=== PATIENT | male | born 1940 | race Caucasian/White ===

== ENCOUNTER 2017-12-31 09:02 | Inpatient (IN) ==
--- NOTE | 2017-12-31 09:01 | Discharge Summary ---
<Abby Jacobs - Last Filed: 12/31/17 08:58> Orders not resulted at time of discharge: Pending orders 12/31/17 00:01 XR knee LT limited 1-2V [XR] Routine H/H [Hemoglobin and Hematocrit] [HEME] Routine Date of Encounter: 12/31/17 - Discharge Diagnosis (1) Status post total knee replacement, left Priority: Primary Status: Acute (2) Arthritis of knee, left Priority: Primary Status: Acute (3) History of aortic valve replacement Priority: Secondary Status: Chronic (4) HTN (hypertension) Priority: Secondary Status: Chronic Qualifiers: Hypertension type: essential hypertension Qualified Code(s): I10 - Essential (primary) hypertension (5) History of TIA (transient ischemic attack) Priority: Secondary Status: Chronic (6) BPH (benign prostatic hyperplasia) Priority: Secondary Status: Chronic Qualifiers: Lower urinary tract symptom presence: symptoms absent Qualified Code(s): N40.0 - Benign prostatic hyperplasia without lower urinary tract symptoms (7) Asthma Priority: Secondary Status: Chronic Qualifiers: Asthma severity: unspecified severity Asthma persistence: unspecified Asthma complication type: unspecified Qualified Code(s): J45.909 - Unspecified asthma, uncomplicated (8) GERD (gastroesophageal reflux disease) Priority: Secondary Status: Chronic Qualifiers: Esophagitis presence: esophagitis presence not specified Qualified Code(s) : K21.9 - Gastro-esophageal reflux disease without esophagitis (9) Peripheral neuropathy Priority: Secondary Status: Chronic Qualifiers: Peripheral neuropathy type: polyneuropathy, unspecified Qualified Code(s): G62.9 - Polyneuropathy, unspecified - Hospital Course Hospital course: Mr. Paniagua is a 77 year old male - Time Spent with Patient Total time spent providing and/or coordinating discharge services: - Discharge Medications Home Medications: Albuterol Sulfate [Ventolin Hfa] 2 puff IH Q4H PRN 06/14/17 [History] Ascorbic Acid [Vitamin C] 1,000 mg PO DAILY 06/14/17 [History] Aspirin [Lo-Dose Aspirin EC] 81 mg PO DAILY 06/14/17 [History] Budesonide/Formoterol 160/4.5 [Symbicort 160/4.5] 2 puff IH BIDR 06/14/17 [ History] Calcium Carbonate [Calcium] 600 mg PO DAILY 06/14/17 [History] Cyanocobalamin (Vitamin B-12) [Vitamin B-12] 1,000 mcg SL DAILY 06/14/17 [ History] Finasteride [Proscar] 5 mg PO DAILY 06/14/17 [History] Garlic [Odor Free Garlic] 100 mg PO DAILY 06/14/17 [History] Irbesartan [Avapro] 300 mg PO DAILY 06/14/17 [History] Multivitamin [One Daily Multivitamin] 1 each PO DAILY 06/14/17 [History] Pantoprazole Sodium 40 mg PO DAILY 06/14/17 [History] Sertraline [Zoloft] 100 mg PO DAILY 06/14/17 [History] Tamsulosin [Flomax] 0.8 mg PO DAILY 06/14/17 [History] Aspirin Enteric Coated [Aspirin EC] 325 mg PO BID #20 tablet. 12/31/17 [Rx] OxyCODONE Immed Rel [Roxicodone 5 MG] 5 mg PO Q6HR PRN 7 Days #28 tablet [Rx] Allergies/Adverse Reactions: 3 Allergy/AdvReac Type Severity Reaction Status Date / Time No Known Allergies Allergy Verified 06/14/17 08:11 Primary care physician: Sb Mckinney MD - Patient Status Disposition: Transfer Inpatient Rehab Fac Condition: Good - Discharge Instructions Follow Up With: Sb Mckinney MD [Primary Care Provider] - <Alexandr Burnett - Last Filed: 01/04/18 06:51> Orders not resulted at time of discharge: Pending orders 12/31/17 00:01 XR knee LT limited 1-2V [XR] Routine H/H [Hemoglobin and Hematocrit] [HEME] Routine Date of Encounter: 01/04/18 Time of Encounter: 06:50 - Discharge Diagnosis (1) Urinary hesitancy Priority: Secondary Status: Chronic (2) Status post total knee replacement, left Priority: Primary Status: Acute (3) Arthritis of knee, left Priority: Primary Status: Chronic (4) History of aortic valve replacement Priority: Secondary Status: Chronic (5) HTN (hypertension) Priority: Secondary Status: Chronic Qualifiers: Hypertension type: essential hypertension Qualified Code(s): I10 - Essential (primary) hypertension (6) History of TIA (transient ischemic attack) Priority: Secondary Status: Chronic (7) BPH (benign prostatic hyperplasia) Priority: Secondary Status: Chronic Qualifiers: Lower urinary tract symptom presence: symptoms absent Qualified Code(s): N40.0 - Benign prostatic hyperplasia without lower urinary tract symptoms (8) Asthma Priority: Secondary Status: Chronic Qualifiers: Asthma severity: unspecified severity Asthma persistence: unspecified Asthma complication type: unspecified Qualified Code(s): J45.909 - Unspecified asthma, uncomplicated (9) GERD (gastroesophageal reflux disease) Priority: Secondary Status: Chronic Qualifiers: Esophagitis presence: esophagitis presence not specified Qualified Code(s) : K21.9 - Gastro-esophageal reflux disease without esophagitis (10) Peripheral neuropathy Priority: Secondary Status: Chronic Qualifiers: Peripheral neuropathy type: polyneuropathy, unspecified Qualified Code(s): G62.9 - Polyneuropathy, unspecified - Hospital Course Hospital course: Mr. Paniagua is a 77 year old male Status post left total knee replacementThe patient had an uneventful postoperative course. They received antibiotics and physical therapy and were discharged in stable condition. There will follow-up in the office in 2 weeks. - Time Spent with Patient Total time spent providing and/or coordinating discharge services: Primary care physician: Sb Mckinney MD - Patient Status Functional capacity at discharge: uses cane/walker Overall status at discharge: patient is progressing back to baseline
[2017-12-31] MEDS ORDERED: CeFAZolin Syr 2,000MG/20 ML 2,000 MG/20 ML SYRINGE IVPB ONE (09:27)
[2017-12-31] MEDS ORDERED: Albuterol 2.5 MG/3 ML NEBULIZER IH ONE (09:27)
[2017-12-31] MEDS ORDERED: Ringers Solution, Lactated 1,000 ML IVC SCH ×2 (09:30→14:27)
[2017-12-31] MEDS ORDERED: Famotidine 20 MG/2 ML VIAL IVP ONE (10:00)
[2017-12-31] MEDS ORDERED: cloNIDine HCl 0.1 MG TABLET PO ONE (10:00)
--- NOTE | 2017-12-31 10:00 | History & Physical Report ---
Date of Encounter: 12/31/17 Time of Encounter: 10:00 24 Hour HP Update - Instructions Instructions: If the History and Physical is less than 30 days old and was completed prior to A.M. admission and or procedure and has NOT been updated on calendar day of procedure please complete this update prior to performing procedure. - Update Patient reports changes in Medical Condition: No Changes in examination, assessment, or condition: No Changes in Medication: No Preop tests/diagnostics Reviewed: Yes Surgery Remains Indicated: Yes Consent for Planned Operative Procedure(s) Verified: Yes - Pre-Operative Checklist Preoperative Checklist Indicated: No Prophylactic Antibiotic Ordered: Yes Is VTE Prophylaxis Indicated?: Yes
[2017-12-31] MEDS ORDERED: Acetaminophen IV 1,000 MG/100 ML INFUS..BTL IVPB ONE (10:01)
[2017-12-31] MEDS ORDERED: Pregabalin 75 MG CAPSULE PO ONE (10:01)
--- NOTE | 2017-12-31 10:05 | Anesthesia Evaluation PreOp ---
Date of Encounter: 12/31/17 Time of Encounter: 10:03 - Past History Planned Operation: L-robotic Total Knee Cardiac History: HTN (maintained on Irbesartan), Cardiac Surgery (Hx Aortic Valve replacement 12/2006) Pulmonary History: Asthma, COPD (maintained on ProAir, Symbicort, Ventolin,) INTERACTIVE MEDIA SPECIALIST History: Other (Anxiety/Depression maintained on Sertraline. EtOH related neuropathy) Other Medical History: GERD (maintained on Pantroprazole), Other (BPH maintained on Tamsuosin, Finasteride) Anesthesia History: No Prior Anesthetic Complications, Past Anesthesia (Aortic Valve replacement, [place], R-shoulder 2002. ,Bronch, Hammer toe correction), Problems (Difficulty/Slow awakening) Alcohol Use: none Drug use: none Medications and Allergies Albuterol Sulfate [Ventolin Hfa] 2 puff IH Q4H PRN 06/14/17 [History] Ascorbic Acid [Vitamin C] 1,000 mg PO DAILY 06/14/17 [History] Aspirin [Lo-Dose Aspirin EC] 81 mg PO DAILY 06/14/17 [History] Budesonide/Formoterol 160/4.5 [Symbicort 160/4.5] 2 puff IH BIDR 06/14/17 [ History] Calcium Carbonate [Calcium] 600 mg PO DAILY 06/14/17 [History] Cyanocobalamin (Vitamin B-12) [Vitamin B-12] 1,000 mcg SL DAILY 06/14/17 [ History] Finasteride [Proscar] 5 mg PO DAILY 06/14/17 [History] Garlic [Odor Free Garlic] 100 mg PO DAILY 06/14/17 [History] Irbesartan [Avapro] 300 mg PO DAILY 06/14/17 [History] Multivitamin [One Daily Multivitamin] 1 each PO DAILY 06/14/17 [History] Pantoprazole Sodium 40 mg PO DAILY 06/14/17 [History] Sertraline [Zoloft] 100 mg PO DAILY 06/14/17 [History] Tamsulosin [Flomax] 0.8 mg PO DAILY 06/14/17 [History] Aspirin Enteric Coated [Aspirin EC] 325 mg PO BID #20 tablet. 12/31/17 [Rx] OxyCODONE Immed Rel [Roxicodone 5 MG] 5 mg PO Q6HR PRN 7 Days #28 tablet [Rx] 3 Allergy/AdvReac Type Severity Reaction Status Date / Time No Known Allergies Allergy Verified 06/14/17 08:11 - Meds/Allergy Pre-op Review Medications Reviewed: Yes Allergies Reviewed: Yes Beta Blockers on Current Med List: No Anesthesia Results - Labs Laboratory Tests 12/24/17 12/24/17 12/24/17 07:26 07:26 07:26 WBC 7.8 Hgb 14.7 Hct 44.1 Plt Count 189 PT 11.5 INR 1.1 APTT 28.5 Sodium 138 Potassium 3.8 Chloride 106 Carbon Dioxide 27 BUN 10 Creatinine 1.08 Est GFR (Non-Af Amer) > 60 - Imaging EKG: image reviewed (EKG dated 12/14/2017 - 84bpm SR w/ PVCs, LAFB, Inf Infarct age undetermined, Possible Ant. Infarct age undertermined) Additional studies: ECHO 12/17/2017 - EV/EV echocardiogram Impressions: LVEF 60%. Mild left ventricular diastolic dysfunction. Normal right ventricular structure and function. Mild to moderate mitral regurgitation. Biologic aortic valve not well visualized. Normal function by Doppler. Mild tricuspid regurgitation. Borderline presence of pulmonary hypertension. IVC is not well visualized. Left Ventricular Wall Motion: Rest Echo Findings All wall segments showed normal motion. Findings: Study Quality * Technically adequate exam. ECG Findings * Sinus rhythm with BBB. Left Ventricle * LVEF 60%. * Normal LV chamber size, wall thickness and function. * Mild left ventricular diastolic dysfunction. Right Ventricle * Normal right ventricular structure and function. Left Atrium * Normal left atrial size. Right Atrium * Normal right atrial size. Mitral Valve * Normal mitral valve structure. * No mitral stenosis. * Mild to moderate mitral regurgitation. Aortic Valve * No aortic regurgitation. * Biologic aortic valve not well visualized. * No aortic stenosis. Tricuspid Valve * Normal tricuspid valve structure. * Mild tricuspid regurgitation. Pulmonic Valve * Pulmonic valve is not well visualized. * No pulmonic stenosis. * No pulmonic regurgitation. Pulmonary Artery * Pulmonary artery not well visualized. Aorta * Normally sized aortic root. Pericardium * There is no pericardial effusion present. Interatrial Septum * Interatrial septum not well evaluated. IVC * The IVC is not well evaluated. Anesthesia Exam O2 Sat Height 1.83 m Height 1.83 m Height 1.83 m Weight 89.358 kg Weight 89.358 kg Weight 89.358 kg O2 Sat by Pulse Oximetry 94 O2 Sat by Pulse Oximetry 94 Vital Signs Temp Pulse Resp BP Pulse Ox 98.0 F 77 18 167/93 94 12/31/17 09:31 12/31/17 09:31 12/31/17 09:31 12/31/17 09:31 12/31/17 09:31 - HEENT Pupil (Motor): Pupils equal, EOMI Mallampati: II Teeth: Edentulous Oral Opening: Greater than 3 - INTERACTIVE MEDIA SPECIALIST LOC: Oriented INTERACTIVE MEDIA SPECIALIST Motor: Normal RUE, Normal LUE, Normal RLE, Normal LLE, Normal Face INTERACTIVE MEDIA SPECIALIST Sensory: Normal: RUE, LUE, RLE, LLE, Face - Cardiac Rhythm: Regular Murmur: Systolic - Pulmonary Breath Sounds: bilateral Clear Respiratory Effort: Symmetrical Anesthesia Assess/Plan ASA Score: 3 (HTN, Cholesterol, COPD, GERD, BPH) Modified [place] Scale for Level of Consciousness: Cooperative, oriented, and tranquil Anesthetic Plan: General, Regional (SAB, Femoral PNB,) Monitoring Plan: Standard Monitors Recovery Plan: PACU Anes Supervising Prov Stmt: Pt seen/evaluated, R&B discussed, questions answered and consent obtained. Radha Camargo MD
[2017-12-31] MEDS ORDERED: Metoclopramide 10 MG/2 ML VIAL ONE (10:30)
[2017-12-31] MEDS ORDERED: *HR* FentaNYL (PF) 100 MCG/2 ML VIAL ONE (11:03)
[2017-12-31] MEDS ORDERED: *HR* Midazolam HCl 2 MG/2 ML VIAL ONE (11:03)
[2017-12-31] MEDS ORDERED: *HR* Propofol 200 MG/20 ML VIAL IVP ONE (11:04)
[2017-12-31] MEDS ORDERED: Propofol 500 MG/50 ML INFUS..BTL ONE (11:09)
[2017-12-31] MEDS ORDERED: *HR* PHENYLEPHRINE 1,000 MCG/10 ML SYRINGE IVP ONE (11:09)
[2017-12-31] MEDS ORDERED: Morphine Sulfate/PF 5mg/10mL Vial ONE (11:38)
[2017-12-31] MEDS ORDERED: Bupivacaine/Clonidine Syringe 1 EACH SYRINGE ONE (11:54)
[2017-12-31] MEDS ORDERED: ROPIVACAINE HCL/PF 0.5% 30 ML VIAL ONE (11:57)
[2017-12-31] MEDS ORDERED: Ethanol\\Acetic Acid\\Na Ace\\Ben 1,000 ML IRRIG.SOLN IR ONE (12:00)
--- NOTE | 2017-12-31 12:41 | Anesthesia Procedures ---
Date of Encounter: 12/31/17 Time of Encounter: 11:45 Procedures: Anesthesia - Epidural/Spinal Patient ID/Chart reviewed: Yes Patient examined: Yes Consent Obtained: Yes Supplemental Oxygen: Nasal Cannula Supplemental Oxygen Rate (L/min): 2 Sedation: Versed (mg): 0 (0.5mg administered) Sedation: Fentanyl (mcg): 25 Site Prep: Aseptic Technique, Povidone-Iodine 1% Patient position: upright Local Anesthetic: Lidocaine 1% Amount of Local Anesthetic used: 3 Interspace Used: L2-L3 CSF: Yes Paresthesia: No Spinal Needle Gauge: 25 (Pencar) Spinal Dose: 1ml x 0.75% Spinal Marcaine + 200mcg Duramorph Procedure: L-Total Knee Replacement - Nerve Block Procedure Date: 12/31/17 Time: 11:50 Allergies/Adv Reactions: NKDA Surgical Procedure: Robotic L-TKR Checklist: Correct Patient Identifier Correct side: Left Blood Thinner: No Monitor Applied: BP, Pulse Oximetry Supplemental Oxygen via Nasal Cannula (L/min): 2 Sedation: Versed (mg): 0 (0.5) Sedation: Fentanyl (mcg): 25 Indication: Primary Anesthesia Pre-op Neuro Deficits: Yes (Pain, decreased ROM) Block Type: Femoral (Adductor Canal) Sterile Technique: Yes Ultrasound used: Yes Anatomy identified: Yes Visual spread of Local: Yes Neuro Stimulation: No Blood on Needle Aspiration: No Smooth Injection of Local: Yes Pain with Injection of Local: No Prep: Chlorhexadine Needle: 22 x 50 mm Stimuplex Local: Ropivacaine (30ml 0.5% Ropivacaine w/ Decadron 8mg) Volume (cc): 30 Number of Attempts: 1 (w/ assistance/direction by Dr. Mejias) Complications: None/effective block Vitals: 3 Vital Signs Time 1150 1154 BP 152/86 135/79 Pulse 75 70 Resp 18 18 O2 Sat 96% 96% Anes Supervising Prov Stmt: Pt tolerated procedure well and without any immediate complication. Radha Camargo MD
--- NOTE | 2017-12-31 13:11 | Orthopedic Operative Note ---
Date of procedure: 12/31/17 Pre-op diagnosis: Left knee arthritis Post-op diagnosis: same Procedure: Procedure: Left robotic-assisted Total knee replacement Estimated blood loss: 200 cc Hardware: Metal and polyethylene replacement. [place] Femur: 6 Tibia: 7 TS insert: 11 Patella: 39 Exam Under anesthesia: 8 degree flexion contracture 6 degree varus as calculated by the robot full flexion and no instability Procedural Notes: Patient noted to have grade 4 changes undersurface of patella femoral joint medial compartment Operative procedure: The patient was brought to the operating room and placed on the operating room table. After general anesthesia was administered the operative knee was examined. Findings were noted in the exam under anesthesia. The operative extremity was prepped and draped in sterile surgical fashion. The patient received IV antibiotics prior to skin incision. A standard midline incision was made centered over the patella. The incision was made through the skin and subcutaneous tissue. A medial parapatellar tendon approach was performed. Care was taken to preserve tissue along the medial aspect of the patella. And to protect the patella tendon. The deep MCL was released off the medial tibia. The infra patella fat pad was excised. The patella was everted and cut was made at the level of the insertion of the quadriceps and patella tendon. The patella was sized to a 39 the guide was seated and the lug holes are drilled. Knee was brought into flexion. Patient noted to have grade 4 arthritic changes medial compartment patellofemoral joint. Steinmann pins were placed in the tibia and the femur for the tibial and femoral arrays respectively. Checkpoints were also placed in the tibia and the femur for calculation purposes. The knee including the femur and the tibial registered. Osteophytes , ACL and PCL were excised at this point. Extension and flexion were assessed with a valgus stress components were adjusted on the computer to balance the knee. Femoral cuts were made first with robotic assistance, these included the anterior cut posterior cuts chamfer cuts. Tibial cut was then performed with robotic assistance as well. Bone fragments were removed, as well as the medial and lateral meniscus. The size 6 femoral guide was seated box cut was made lug holes are drilled. The size 7 tibial tray was seated and prepared with the fin cutter. Trial reduction with the 11 TS Peace revealed extension of 0 degree and 1 degree varus full flexion. No varus valgus instability. Trial reduction revealed excellent patella tracking. All trial components were removed all bony surfaces were irrigated. The Tibia was seated followed by the femur, The Peace size 11 was seated and secured patella. Patient had similar findings for motion and stability. The knee was closed by the PA. The knee was then irrigated out with 2 L of pulse irrigation. The extensor mechanism was closed with #2 FiberWire suture and #2 PDS suture. The subcutaneous tissue was then irrigated and closed deep with #1 PDS suture superficially with 0 PDS suture and skin was closed with zip tie The patient was then placed in a sterile dressing and a postoperative brace extubated and transferred to recovery room in stable condition. Anesthesia: spinal Surgeon: Alexandr Burnett Was there an maintenance assistant present: Yes Revenue Integrity Analyst: Esmer Agustin Estimated blood loss (cc): 200 Condition: stable Disposition: PACU
[2017-12-31 14:27] LABS: Hematocrit 40.3 % (37.5-50.1); Hemoglobin 13.4 g/dL (12.9-16.9)
[2017-12-31] MEDS ORDERED: MOM Conc 10 ML UD.LIQ PO PRN (14:27)
[2017-12-31] MEDS ORDERED: Naloxone 0.4 MG/ML INJ IVP PRN (14:27)
[2017-12-31] MEDS ORDERED: Temazepam 15 MG CAPSULE PO PRN (14:27)
[2017-12-31] MEDS ORDERED: Sennosides 8.6 MG TABLET PO PRN (14:27)
[2017-12-31] MEDS: CeFAZolin Premix DUPLEX 2,000 MG/50 ML BAG IVPB SCH (17:03)
[2017-12-31] MEDS ORDERED: *HR* Enoxaparin 30 MG/0.3 ML SYRINGE SQ SCH (18:00)
[2017-12-31] MEDS: Budesonide/Formoterol 160/4.5 MDI IH SCH (20:19)
[2018-01-01] MEDS: CeFAZolin Premix DUPLEX 2,000 MG/50 ML BAG IVPB SCH (00:57)
[2018-01-01] MEDS: Ondansetron 4 MG/2 ML VIAL IVP PRN (02:43)
--- NOTE | 2018-01-01 06:31 | Orthopedics Progress Note ---
Date of Encounter: 01/01/18 Time of Encounter: 06:31 - Assessment and Plan (1) Urinary hesitancy Current Visit: No Status: Chronic (2) Status post total knee replacement, left Current Visit: No Status: Acute (3) Arthritis of knee, left Current Visit: No Status: Chronic (4) History of aortic valve replacement Current Visit: No Status: Chronic (5) HTN (hypertension) Current Visit: No Status: Chronic Qualifiers: Hypertension type: essential hypertension Qualified Code(s): I10 - Essential (primary) hypertension (6) History of TIA (transient ischemic attack) Current Visit: No Status: Chronic (7) BPH (benign prostatic hyperplasia) Current Visit: No Status: Chronic Qualifiers: Lower urinary tract symptom presence: symptoms absent Qualified Code(s): N40.0 - Benign prostatic hyperplasia without lower urinary tract symptoms (8) Asthma Current Visit: No Status: Chronic Qualifiers: Asthma severity: unspecified severity Asthma persistence: unspecified Asthma complication type: unspecified Qualified Code(s): J45.909 - Unspecified asthma, uncomplicated (9) GERD (gastroesophageal reflux disease) Current Visit: No Status: Chronic Qualifiers: Esophagitis presence: esophagitis presence not specified Qualified Code(s) : K21.9 - Gastro-esophageal reflux disease without esophagitis (10) Peripheral neuropathy Current Visit: No Status: Chronic Qualifiers: Peripheral neuropathy type: polyneuropathy, unspecified Qualified Code(s): G62.9 - Polyneuropathy, unspecified Subjective Interval history: Patient was seen this morning doing well without complaints. Afebrile vital signs stable. Operative extremity: Neurovascularly intact Dressing clean dry and intact Calves nontender Assessment and plan: Continue with postoperative care Patient with a complicated medical comorbidities history of aortic valve replacement history of TIA patient is unsafe to go home will need to an ECF will require conversion to inpatient. Objective Vital signs: Vital Signs Temp Pulse Resp BP Pulse Ox 01/01/18 02:38 97.9 F 63 14 143/82 94 01/01/18 00:27 98.1 F 58 14 160/83 96 12/31/17 20:19 14 97 12/31/17 18:35 97.6 F 50 12 139/80 98 12/31/17 15:15 97.7 F 54 14 145/85 98 12/31/17 14:45 97.4 F L 52 14 142/85 96 12/31/17 14:27 97.5 F L 49 16 168/80 97 12/31/17 14:14 97.6 F 51 12 160/85 97 12/31/17 14:04 51 12 159/82 98 12/31/17 13:54 51 12 153/86 97 12/31/17 13:44 97.4 F L 55 16 136/79 96 12/31/17 12:11 60 16 128/76 97 12/31/17 12:08 62 16 124/74 96 12/31/17 12:02 60 16 122/73 96 12/31/17 11:59 61 16 129/75 97 12/31/17 11:56 65 16 136/85 97 12/31/17 11:53 66 16 140/80 97 12/31/17 11:50 70 16 135/79 97 12/31/17 11:47 75 16 152/86 96 12/31/17 11:37 81 18 113/79 97 12/31/17 11:27 65 18 145/90 96 12/31/17 09:57 18 167/93 94 12/31/17 09:31 98.0 F 77 18 167/93 94 Intake and Output 12/31/17 12/31/17 01/01/18 15:59 23:59 07:59 Intake Total 600 / 600 730 / 730 500 / 500 Output Total 200 / 200 0 / 0 1125 / 1125 Balance 400 / 400 730 / 730 -625 / -625 Intake: IV Fluids 120 / 120 50 / 50 50 / 50 Ofirmev 1,000 mg/100 ml 1,000 100 / 100 mg In 100 ml @ 400 mls/hr IVPB ONCE ONE Rx#:[id number] Ancef Premix DUPLEX 2,000 mg In 50 / 50 50 / 50 50 ml @ 100 mls/hr IVPB Q8H ANA Rx#:[id number] Ancef Syringe 2,000 MG/20 ML 2, 20 / 20 000 mg In 20 ml @ 200 mls/hr IVPB PREOP ONE Rx#:[id number] Oral 480 / 480 680 / 680 450 / 450 Output: Urine 0 / 0 0 / 0 Estimated Blood Loss 200 / 200 Straight Cath 1125 / 1125 Other: Meal Dinner Percent of Meal Consumed 50% Weight 89.358 kg - Labs CBC & BMP: 12/31/17 13:57 - VTE Documentation of Mechanical Device: Venous foot pump, device Consult Discharge Plan - Plan Referrals: Sb Mckinney MD [Primary Care Provider] - Prescriptions: Aspirin Enteric Coated [Aspirin EC] 325 mg PO BID #20 tablet. OxySHAYDONDmitri Immed Rel [Roxicodone 5 MG] 5 mg PO Q6HR PRN 7 Days #28 tablet PRN Reason: Severe Pain
[2018-01-01 07:39] LABS: Hematocrit 37.9 % (37.5-50.1); Hemoglobin 12.7 g/dL (12.9-16.9)
[2018-01-01] MEDS: Budesonide/Formoterol 160/4.5 MDI IH SCH ×2 (07:47→21:37)
[2018-01-01 07:53] LABS: BUN/Creatinine Ratio 16 (6-26); Blood Urea Nitrogen 16 mg/dL (8-23); Calcium 8.4 mg/dL (8.6-10.3); Carbon Dioxide 26 mEq/L (23-29); Chloride 104 mEq/L (98-107); Glucose 120 mg/dL (70-105); Osmolality,Calculated 276 (280-300); Potassium 4.3 mEq/L (3.5-5.1); Sodium 132 mEq/L (136-145); eGFR For African Americans > 60 (> 60); eGFR For Non-African Americans > 60 (> 60)
[2018-01-01] MEDS: traMADol 50 MG TABLET PO PRN ×2 (08:12→14:51)
[2018-01-01] MEDS: Ascorbic Acid 500 MG TABLET PO SCH (08:12)
[2018-01-01] MEDS: Aspirin Enteric Coated 81 MG Tablet PO SCH ×2 (08:12→20:04)
[2018-01-01] MEDS: Cyanocobalamin (B-12) 1,000 MCG TABLET PO SCH (08:12)
[2018-01-01] MEDS: Multivit/Ca/Min/Fe/FA 1 TAB TABLET PO SCH (08:12)
[2018-01-01] MEDS: Garlic [Odor Free Garlic] 100 MG PO SCH (08:13)
[2018-01-01] MEDS: Finasteride 5 MG TABLET PO SCH (08:13)
[2018-01-01] MEDS ORDERED: Aspirin Enteric Coated 81 MG Tablet PO SCH (09:00)
[2018-01-01] MEDS: *HR* OxyCODONE/APAP 5/325 TABLET PO PRN ×2 (11:31→16:27)
[2018-01-01] MEDS: *HR* OxyCODONE Immed Rel 5 MG TABLET PO PRN (20:04)
[2018-01-02] MEDS: *HR* OxyCODONE Immed Rel 5 MG TABLET PO PRN ×5 (00:15→20:06)
--- NOTE | 2018-01-02 05:54 | Orthopedics Progress Note ---
Date of Encounter: 01/02/18 Time of Encounter: 05:54 - Assessment and Plan (1) Urinary hesitancy Current Visit: No Status: Chronic (2) Status post total knee replacement, left Current Visit: No Status: Acute (3) Arthritis of knee, left Current Visit: No Status: Chronic (4) History of aortic valve replacement Current Visit: No Status: Chronic (5) HTN (hypertension) Current Visit: No Status: Chronic Qualifiers: Hypertension type: essential hypertension Qualified Code(s): I10 - Essential (primary) hypertension (6) History of TIA (transient ischemic attack) Current Visit: No Status: Chronic (7) BPH (benign prostatic hyperplasia) Current Visit: No Status: Chronic Qualifiers: Lower urinary tract symptom presence: symptoms absent Qualified Code(s): N40.0 - Benign prostatic hyperplasia without lower urinary tract symptoms (8) Asthma Current Visit: No Status: Chronic Qualifiers: Asthma severity: unspecified severity Asthma persistence: unspecified Asthma complication type: unspecified Qualified Code(s): J45.909 - Unspecified asthma, uncomplicated (9) GERD (gastroesophageal reflux disease) Current Visit: No Status: Chronic Qualifiers: Esophagitis presence: esophagitis presence not specified Qualified Code(s) : K21.9 - Gastro-esophageal reflux disease without esophagitis (10) Peripheral neuropathy Current Visit: No Status: Chronic Qualifiers: Peripheral neuropathy type: polyneuropathy, unspecified Qualified Code(s): G62.9 - Polyneuropathy, unspecified Subjective Interval history: Patient was seen this morning doing well without complaints. Afebrile vital signs stable. Operative extremity: Neurovascularly intact Dressing clean dry and intact Calves nontender Assessment and plan: Continue with postoperative care Hematocrit 37 Objective Vital signs: Vital Signs Temp Pulse Resp BP Pulse Ox 01/02/18 03:23 98.4 F 73 14 162/76 94 01/01/18 23:23 97.7 F 68 14 143/66 93 01/01/18 21:37 15 94 01/01/18 19:59 98.0 F 63 14 132/73 94 01/01/18 10:50 97.4 F L 56 16 137/62 95 01/01/18 08:35 97.9 F 50 16 165/76 96 01/01/18 07:49 14 94 Intake and Output 01/01/18 01/01/18 01/02/18 15:59 23:59 07:59 Intake Total 240 / 240 550 / 550 200 / 200 Output Total 700 / 700 750 / 750 0 / 0 Balance -460 / -460 -200 / -200 200 / 200 Intake: Oral 240 / 240 550 / 550 200 / 200 Output: Urine 0 / 0 0 / 0 Straight Cath 700 / 700 750 / 750 Other: Meal Breakfast Percent of Meal Consumed 90% - Labs CBC & BMP: 01/01/18 07:08 01/01/18 07:08 Labs: Abnormal lab results Hgb 12.7 g/dL (12.9-16.9) L 01/01/18 07:08 Sodium 132 mEq/L (136-145) L 01/01/18 07:08 Glucose 120 mg/dL (70-105) H 01/01/18 07:08 Calculated Osmolality 276 (280-300) L 01/01/18 07:08 Calcium 8.4 mg/dL (8.6-10.3) L 01/01/18 07:08 - VTE Documentation of Mechanical Device: Venous foot pump, device Consult Discharge Plan - Plan Referrals: Sb Mckinney MD [Primary Care Provider] -
[2018-01-02 08:05] LABS: Hemoglobin 11.2 g/dL (12.9-16.9)
[2018-01-02 08:21] LABS: BUN/Creatinine Ratio 18 (6-26); Blood Urea Nitrogen 20 mg/dL (8-23); Calcium 8.1 mg/dL (8.6-10.3); Carbon Dioxide 28 mEq/L (23-29); Chloride 99 mEq/L (98-107); Glucose 106 mg/dL (70-105); Osmolality,Calculated 277 (280-300); Sodium 132 mEq/L (136-145); eGFR For African Americans > 60 (> 60); eGFR For Non-African Americans > 60 (> 60)
[2018-01-02] MEDS: Ascorbic Acid 500 MG TABLET PO SCH (08:32)
[2018-01-02] MEDS: Finasteride 5 MG TABLET PO SCH (08:33)
[2018-01-02] MEDS: Cyanocobalamin (B-12) 1,000 MCG TABLET PO SCH (08:33)
[2018-01-02] MEDS: Aspirin Enteric Coated 81 MG Tablet PO SCH ×2 (08:33→20:07)
[2018-01-02] MEDS: Multivit/Ca/Min/Fe/FA 1 TAB TABLET PO SCH (08:33)
[2018-01-02] MEDS: *HR* OxyCODONE/APAP 5/325 TABLET PO PRN (08:33)
[2018-01-02] MEDS: Ondansetron 4 MG/2 ML VIAL IVP PRN (08:34)
[2018-01-02] MEDS: Garlic [Odor Free Garlic] 100 MG PO SCH (08:34)
--- NOTE | 2018-01-02 09:03 | Physician Discharge Referral ---
ExtendedCare Referral Info Transfer To: [facility] Provider in Charge: Provider in Charge after Transfer: PCP Institutional Level of Care: Skilled - Diagnosis (1) Status post total knee replacement, left Priority: Primary Status: Acute (2) Arthritis of knee, left Priority: Primary Status: Chronic (3) History of aortic valve replacement Priority: Secondary Status: Chronic (4) HTN (hypertension) Priority: Secondary Status: Chronic (5) History of TIA (transient ischemic attack) Priority: Secondary Status: Chronic (6) BPH (benign prostatic hyperplasia) Priority: Secondary Status: Chronic (7) Asthma Priority: Secondary Status: Chronic (8) GERD (gastroesophageal reflux disease) Priority: Secondary Status: Chronic (9) Peripheral neuropathy Priority: Secondary Status: Chronic Expected Duration of Placement: < 30 days Prognosis: Good - Transfer Medications Home Medications: Albuterol Sulfate [Ventolin Hfa] 2 puff IH Q4H PRN 06/14/17 [History] Ascorbic Acid [Vitamin C] 1,000 mg PO DAILY 06/14/17 [History] Aspirin [Lo-Dose Aspirin EC] 81 mg PO DAILY 06/14/17 [History] Budesonide/Formoterol 160/4.5 [Symbicort 160/4.5] 2 puff IH BIDR 06/14/17 [ History] Calcium Carbonate [Calcium] 600 mg PO DAILY 06/14/17 [History] Cyanocobalamin (Vitamin B-12) [Vitamin B-12] 1,000 mcg SL DAILY 06/14/17 [ History] Finasteride [Proscar] 5 mg PO DAILY 06/14/17 [History] Garlic [Odor Free Garlic] 100 mg PO DAILY 06/14/17 [History] Irbesartan [Avapro] 300 mg PO DAILY 06/14/17 [History] Multivitamin [One Daily Multivitamin] 1 each PO DAILY 06/14/17 [History] Pantoprazole Sodium 40 mg PO DAILY 06/14/17 [History] Sertraline [Zoloft] 100 mg PO DAILY 06/14/17 [History] Tamsulosin [Flomax] 0.8 mg PO DAILY 06/14/17 [History] Aspirin Enteric Coated [Aspirin EC] 325 mg PO BID #20 tablet. 12/31/17 [Rx] OxyCODONE Immed Rel [Roxicodone 5 MG] 5 mg PO Q6HR PRN 7 Days #28 tablet [Rx] Allergies/Adverse Reactions: 3 Allergy/AdvReac Type Severity Reaction Status Date / Time No Known Allergies Allergy Verified 06/14/17 08:11 - Respiratory Orders None Smoking Cessation: Smoking cessation has been advised. For more information, call the [place] Tobacco Quit Line at 3-965-XLDC-NOW. - Ancillary Orders May use pressure relief devices daily prn - Mobility Orders Chair, Ambulate - Rehabiliation Orders Rehab Potential: Good Rehab Orders: ROM Exercises, Evaluation for Physical Therapy, Evaluation for Occupational Therapy - Treatments Skin tear care topically daily PRN per policy List/Other: Total Knee replacement Precautions x 6 weeks Apply cold therapy wrap 3-6x/day for 20 minutes at a time. Encourage ambulation throughout the day and incentive spirometer 10x/hour. Elevate affected extremity above heart as tolerated. Brace: Wear knee immobilizer at night x 2 weeks. Opsite placed. Keep dressing intact until first follow up appointment. If > 50% saturated, notify office, remove dressing and place appropriate dressing back in place. Leave Zipline intact. Opsite dressing is water resistant, not water- proof. OK to shower, but do not get dressing wet. CERTIFICATION: I certify that the transfer of the above named patient to an Extended Care Facility is necessary for the continuing treatment of the diagnosis listed. The above information is true and accurate reflection of patient's current condition. Confidential - Redisclosure prohibited without a patient's written consent.
[2018-01-02] MEDS: Budesonide/Formoterol 160/4.5 MDI IH SCH ×2 (11:22→21:45)
[2018-01-02] MEDS: Ketorolac 15 MG/ML VIAL IVP PRN (17:13)
[2018-01-03] MEDS: *HR* OxyCODONE Immed Rel 5 MG TABLET PO PRN ×5 (00:01→22:20)
[2018-01-03] MEDS: Budesonide/Formoterol 160/4.5 MDI IH SCH ×2 (08:07→20:46)
[2018-01-03] MEDS: Cyanocobalamin (B-12) 1,000 MCG TABLET PO SCH (08:11)
[2018-01-03] MEDS: Ketorolac 15 MG/ML VIAL IVP PRN (08:12)
[2018-01-03] MEDS: Multivit/Ca/Min/Fe/FA 1 TAB TABLET PO SCH (08:13)
[2018-01-03] MEDS: Ascorbic Acid 500 MG TABLET PO SCH (08:13)
[2018-01-03] MEDS: Finasteride 5 MG TABLET PO SCH (08:13)
[2018-01-03] MEDS: Aspirin Enteric Coated 81 MG Tablet PO SCH ×2 (08:13→19:43)
[2018-01-03] MEDS: Garlic [Odor Free Garlic] 100 MG PO SCH (08:14)
--- NOTE | 2018-01-03 08:36 | Orthopedics Progress Note ---
Date of Encounter: 01/03/18 Time of Encounter: 08:36 - Assessment and Plan (1) Urinary hesitancy Current Visit: No Status: Chronic (2) Status post total knee replacement, left Current Visit: No Status: Acute (3) Arthritis of knee, left Current Visit: No Status: Chronic (4) History of aortic valve replacement Current Visit: No Status: Chronic (5) HTN (hypertension) Current Visit: No Status: Chronic Qualifiers: Hypertension type: essential hypertension Qualified Code(s): I10 - Essential (primary) hypertension (6) History of TIA (transient ischemic attack) Current Visit: No Status: Chronic (7) BPH (benign prostatic hyperplasia) Current Visit: No Status: Chronic Qualifiers: Lower urinary tract symptom presence: symptoms absent Qualified Code(s): N40.0 - Benign prostatic hyperplasia without lower urinary tract symptoms (8) Asthma Current Visit: No Status: Chronic Qualifiers: Asthma severity: unspecified severity Asthma persistence: unspecified Asthma complication type: unspecified Qualified Code(s): J45.909 - Unspecified asthma, uncomplicated (9) GERD (gastroesophageal reflux disease) Current Visit: No Status: Chronic Qualifiers: Esophagitis presence: esophagitis presence not specified Qualified Code(s) : K21.9 - Gastro-esophageal reflux disease without esophagitis (10) Peripheral neuropathy Current Visit: No Status: Chronic Qualifiers: Peripheral neuropathy type: polyneuropathy, unspecified Qualified Code(s): G62.9 - Polyneuropathy, unspecified Subjective Interval history: Patient was seen this morning doing well without complaints. Afebrile vital signs stable. Operative extremity: Neurovascularly intact Dressing clean dry and intact Calves nontender Assessment and plan: Continue with postoperative care Hematocrit 33 Objective Vital signs: Vital Signs Temp Pulse Resp BP Pulse Ox 01/03/18 08:07 16 108/67 95 01/03/18 07:00 98.3 F 89 16 108/67 96 01/03/18 03:06 98.1 F 94 14 103/66 95 01/03/18 00:06 98.5 F 80 14 135/74 94 01/02/18 21:48 16 95 01/02/18 20:16 98.4 F 88 16 109/64 94 01/02/18 15:00 98.3 F 84 16 151/76 95 01/02/18 11:24 18 93 01/02/18 11:00 98.5 F 76 18 146/83 95 01/02/18 08:44 95 Intake and Output 01/02/18 01/03/18 01/03/18 23:59 07:59 15:59 Intake Total 450 / 450 100 / 100 Output Total 475 / 475 200 / 200 Balance -25 / -25 -100 / -100 Intake: Oral 450 / 450 100 / 100 Output: Catheter 475 / 475 200 / 200 - Labs CBC & BMP: 01/02/18 07:31 01/02/18 07:31 Labs: Abnormal lab results Hgb 11.2 g/dL (12.9-16.9) L D 01/02/18 07:31 Hct 33.0 % (37.5-50.1) L 01/02/18 07:31 Sodium 132 mEq/L (136-145) L 01/02/18 07:31 Glucose 106 mg/dL (70-105) H 01/02/18 07:31 Calculated Osmolality 277 (280-300) L 01/02/18 07:31 Calcium 8.1 mg/dL (8.6-10.3) L 01/02/18 07:31 - VTE Documentation of Mechanical Device: Venous foot pump, device Consult Discharge Plan - Plan Referrals: Sb Mckinney MD [Primary Care Provider] -
[2018-01-03] MEDS ORDERED: 0.9 % Sodium Chloride 1,000 ML IVC ONE (13:50)
--- NOTE | 2018-01-03 16:38 | Event Note ---
Date of Encounter: 01/03/18 Time of Encounter: 16:37 Patient doing well; continues to have difficulty with getting out of bed. Catheter placed on 01/02 due to retention and history of BPH. Will pull catheter tomorrow AM, before discharge and monitor for retention. Pain improved
[2018-01-03] MEDS: *HR* OxyCODONE/APAP 5/325 TABLET PO PRN (19:43)
--- NOTE | 2018-01-04 06:51 | Orthopedics Progress Note ---
Date of Encounter: 01/04/18 Time of Encounter: 06:51 - Assessment and Plan (1) Urinary hesitancy Current Visit: No Status: Chronic (2) Status post total knee replacement, left Current Visit: No Status: Acute (3) Arthritis of knee, left Current Visit: No Status: Chronic (4) History of aortic valve replacement Current Visit: No Status: Chronic (5) HTN (hypertension) Current Visit: No Status: Chronic Qualifiers: Hypertension type: essential hypertension Qualified Code(s): I10 - Essential (primary) hypertension (6) History of TIA (transient ischemic attack) Current Visit: No Status: Chronic (7) BPH (benign prostatic hyperplasia) Current Visit: No Status: Chronic Qualifiers: Lower urinary tract symptom presence: symptoms absent Qualified Code(s): N40.0 - Benign prostatic hyperplasia without lower urinary tract symptoms (8) Asthma Current Visit: No Status: Chronic Qualifiers: Asthma severity: unspecified severity Asthma persistence: unspecified Asthma complication type: unspecified Qualified Code(s): J45.909 - Unspecified asthma, uncomplicated (9) GERD (gastroesophageal reflux disease) Current Visit: No Status: Chronic Qualifiers: Esophagitis presence: esophagitis presence not specified Qualified Code(s) : K21.9 - Gastro-esophageal reflux disease without esophagitis (10) Peripheral neuropathy Current Visit: No Status: Chronic Qualifiers: Peripheral neuropathy type: polyneuropathy, unspecified Qualified Code(s): G62.9 - Polyneuropathy, unspecified Subjective Interval history: Patient was seen this morning doing well without complaints. Afebrile vital signs stable. Operative extremity: Neurovascularly intact Dressing clean dry and intact Calves nontender Assessment and plan: Continue with postoperative care Discharge today Objective Vital signs: Vital Signs Temp Pulse Resp BP Pulse Ox 01/04/18 04:30 98.5 F 79 14 149/75 93 01/03/18 23:58 98.9 F 75 14 120/70 94 01/03/18 21:27 99.2 F 79 14 126/72 94 01/03/18 16:21 99.3 F 81 18 113/70 93 01/03/18 15:50 95 01/03/18 11:09 98.3 F 75 18 107/63 95 01/03/18 08:07 16 108/67 95 01/03/18 07:00 98.3 F 89 16 108/67 96 Intake and Output 01/03/18 01/03/18 01/04/18 15:59 23:59 07:59 Intake Total 370 / 370 Output Total 400 / 400 1775 / 1775 1225 / 1225 Balance -400 / -400 -1405 / -1405 -1225 / -1225 Intake: Oral 370 / 370 Output: Catheter 400 / 400 1775 / 1775 1225 / 1225 Other: Meal Dinner Percent of Meal Consumed 50% - Labs CBC & BMP: 01/02/18 07:31 01/02/18 07:31 Labs: Abnormal lab results Hgb 11.2 g/dL (12.9-16.9) L D 01/02/18 07:31 Hct 33.0 % (37.5-50.1) L 01/02/18 07:31 Sodium 132 mEq/L (136-145) L 01/02/18 07:31 Glucose 106 mg/dL (70-105) H 01/02/18 07:31 Calculated Osmolality 277 (280-300) L 01/02/18 07:31 Calcium 8.1 mg/dL (8.6-10.3) L 01/02/18 07:31 - VTE Documentation of Mechanical Device: Venous foot pump, device Consult Discharge Plan - Plan Referrals: Sb Mckinney MD [Primary Care Provider] -
[2018-01-04 07:10] VITALS: BP 136/76
[2018-01-04] MEDS: Ascorbic Acid 500 MG TABLET PO SCH (07:35)
[2018-01-04] MEDS: Finasteride 5 MG TABLET PO SCH (07:35)
[2018-01-04] MEDS: Cyanocobalamin (B-12) 1,000 MCG TABLET PO SCH (07:36)
[2018-01-04] MEDS: Multivit/Ca/Min/Fe/FA 1 TAB TABLET PO SCH (07:36)
[2018-01-04] MEDS: *HR* OxyCODONE Immed Rel 5 MG TABLET PO PRN ×2 (07:36→11:33)
[2018-01-04] MEDS: Aspirin Enteric Coated 81 MG Tablet PO SCH (07:36)
[2018-01-04] MEDS: Garlic [Odor Free Garlic] 100 MG PO SCH (07:37)
[2018-01-04] MEDS: Budesonide/Formoterol 160/4.5 MDI IH SCH (08:15)
== END 2018-01-04 15:19 | disposition other institution (70) | DRG 470 ==
LOC: SAMDAY 09:02 → 3NENU 14:23
PROVIDERS: ADMIT Orthopaedic Surgery; ATTEND Orthopaedic Surgery

== ENCOUNTER 2018-01-18 10:47 | Inpatient (IN) ==
[2018-01-18 11:43] LABS: Basophils # 0.1 K/mcL (0.0-0.2); Basophils % 0.7 %; Eosinophils # 0.4 K/mcL (0.0-0.6); Eosinophils % 4.8 %; Hematocrit 35.4 % (37.5-50.1); Hemoglobin 11.8 g/dL (12.9-16.9); Immature Granulocytes % 1.1 % (0-4); Lymphocytes # 1.4 K/mcL (0.6-4.6); Lymphocytes % 15.3 %; Mean Corpuscular HGB Conc 33.3 g/dL (31.6-35.5); Mean Corpuscular Hemoglobin 29.3 pg (28.0-33.3); Mean Corpuscular Volume 87.8 fL (83.0-100.0); Mean Platelet Volume 9.3 fL (9.4-12.4); Monocytes # 0.7 K/mcL (0.0-1.3); Monocytes % 7.5 %; Neutrophils # 6.4 K/mcL (1.6-8.9); Platelet Count 526 K/mcL (140-400); Red Blood Count 4.03 M/mcL (4.19-5.50); Red Cell Distribution Width 13.2 % (11.5-14.5); Segmented Neutrophils % 70.6 %
[2018-01-18 11:58] LABS: Troponin I < 0.03 ng/mL (< 0.04)
[2018-01-18 12:15] LABS: BUN/Creatinine Ratio 14 (6-26); Blood Urea Nitrogen 18 mg/dL (8-23); Calcium 9.5 mg/dL (8.6-10.3); Carbon Dioxide 20 mEq/L (23-29); Chloride 101 mEq/L (98-107); Glucose 108 mg/dL (70-105); Osmolality,Calculated 278 (280-300); Sodium 133 mEq/L (136-145); eGFR For African Americans > 60 (> 60); eGFR For Non-African Americans 55 (> 60)
--- NOTE | 2018-01-18 12:19 | Emergency Department Note ---
Disposition Clinical Impression: Shortness of breath, Cough Pneumonia Qualifiers: Pneumonia type: due to unspecified organism Laterality: right Lung location: lower lobe of lung Qualified Code(s): J18.1 - Lobar pneumonia, unspecified organism Disposition: Admitted As Inpatient Condition: Good Referrals: Sb Mckinney MD [Primary Care Provider] - Forms: ED Satisfaction Letter Time of Disposition: 15:28 General Adult HPI - General Chief complaint: ED Shortness of Breath/Dyspnea Stated complaint: SOB, winded, post knee surgery Time Seen by Provider: 01/18/18 11:02 Source: patient, family Limitations: no limitations Nursing Notes Reviewed: Yes Vital Signs Reviewed: Yes - History of Present Illness HPI Narrative: Patient is a 77-year-old male that presents emergency department with increased shortness of breath. He states that this is been ongoing since he had surgery on December 31. However he states over the past 3-4 days and this progressively gotten worse. Patient had a knee replacement by Dr. Burnett. He states that he was seen at Dr. Burnett's office today who felt that he should come to the emergency department to be evaluated due to his breathing. Patient states that he has had a productive cough. He states that this feels like previous pneumonia. Patient denies any hemoptysis, chest pain, long car rides, cancer or previous blood clots. Pain Scale: 5 - Related Data Home Medications Medication Instructions Recorded Confirmed Albuterol Sulfate [Ventolin Hfa] 2 puff IH Q4H PRN 06/14/17 01/04/18 Ascorbic Acid [Vitamin C] 1,000 mg PO DAILY 06/14/17 01/04/18 Budesonide/Formoterol 160/4.5 2 puff IH BIDR 06/14/17 01/04/18 [Symbicort 160/4.5] Calcium Carbonate [Calcium] 600 mg PO DAILY 06/14/17 01/04/18 Cyanocobalamin (Vitamin B-12) 1,000 mcg SL DAILY 06/14/17 01/04/18 [Vitamin B-12] Finasteride [Proscar] 5 mg PO DAILY 06/14/17 01/04/18 Garlic [Odor Free Garlic] 100 mg PO DAILY 06/14/17 01/04/18 Irbesartan [Avapro] 300 mg PO DAILY 06/14/17 01/04/18 Multivitamin [One Daily 1 each PO DAILY 06/14/17 01/04/18 Multivitamin] Pantoprazole Sodium 40 mg PO DAILY 06/14/17 01/04/18 Sertraline [Zoloft] 100 mg PO DAILY 06/14/17 01/04/18 Tamsulosin [Flomax] 0.8 mg PO DAILY 06/14/17 01/04/18 Acetaminophen [Tylenol] 650 mg PO Q6HR 01/18/18 01/18/18 Aspirin Enteric Coated [Aspirin EC] 325 mg PO DAILY 01/18/18 01/18/18 Previous Rx's Medication Instructions Recorded Bethanechol [Urecholine] 12.5 mg PO TID tablet 01/15/18 Docusate [Colace] 100 mg PO BID capsule 01/15/18 Polyethylene Glycol 3350 [MiraLAX] 17 gm PO DAILY powd.pack 01/15/18 Saline Nasal Wright [[place] Nasal 2 spray NS QID bottle 01/15/18 Wright] Allergies Allergy/AdvReac Type Severity Reaction Status Date / Time No Known Allergies Allergy Verified 01/18/18 10:56 All systems ED: reviewed and negative except as stated. Cardiovascular: Denies: chest pain Respiratory: Reports: cough, dyspnea, sputum production Gastrointestinal: Denies: abdominal pain, nausea, vomiting Past Medical History - Past Medical History Medical history: Reports: asthma, COPD, GERD, hypertension Surgical history: Reports: cholecystectomy, heart valve replacement (Bovine aortic valve replacement 2006. Has never been on anticoagulants for this reason.) Psychiatric history: Reports: no psych history - Social History Smoking Status: Never smoker Smokeless Tobacco Status: No Alcohol use: Reports: none Drug use: Reports: none Physical Exam - General Limitations: no limitations General appearance: alert, anxious - Head Head exam: atraumatic, normocephalic - Eye Eye exam: Present: normal appearance, EOMI - Neck Neck exam: Present: normal inspection, full ROM, trachea midline - Respiratory Respiratory exam: Present: normal lung sounds bilaterally. Absent: respiratory distress, wheezes - Cardiovascular Cardiovascular exam: Present: regular rate, normal rhythm, normal heart sounds, +S1, +S2 - Abdominal Exam Abdominal exam: Present: soft, Non-Tender, normal bowel sounds - Extremities Exam Extremities exam: Absent: pedal edema, calf tenderness - Neurological Exam Neurological exam: Present: alert, oriented X3 - Psychiatric Psychiatric exam: Present: normal affect, normal mood - Skin Skin exam: Present: warm, dry, intact Course Vital Signs Temperature 97.6 F 01/18/18 10:52 Pulse Rate 71 01/18/18 10:52 Respiratory Rate 26 01/18/18 10:52 Blood Pressure 155/84 01/18/18 10:52 O2 Sat by Pulse Oximetry 100 01/18/18 10:52 Temperature 97.6 F 01/18/18 10:52 Pulse Rate 68 01/18/18 13:55 Respiratory Rate 16 01/18/18 13:55 Blood Pressure 172/93 01/18/18 13:55 O2 Sat by Pulse Oximetry 100 01/18/18 13:55 Oxygen Delivery Oxygen Delivery Nasal Cannula Medical Decision Making - MDM Narrative Medical decision making narrative: Due to the patient presenting with increased shortness of breath we will obtain a CBC, BMP, troponin, chest x-ray EKG. We will also obtain a d-dimer to evaluate for possible blood clot. The patient had an elevated d-dimer so we will order a CTA of the chest. The CTA was negative for pulmonary embolus however there was evidence of a possible atypical infection in the right lower lobe. We will treat this with antibiotic therapy and admit the patient to the hospital. Patient has been started on vancomycin, Zosyn and Levaquin due to the patient having been recently hospitalized and in a rehabilitation center. I called and spoke with the hospitalist and they have accepted the patient to their service. The patient be admitted to the hospital at this time. - Medical Records Medical records reviewed: Yes I reviewed the patient's medical records. - Lab Data Lab results reviewed: Yes I reviewed the patient's lab results. Result diagrams: 01/18/18 11:24 01/18/18 11:24 Lab Results 01/18/18 01/18/18 01/18/18 Range/Units 11:24 11:24 11:24 WBC 9.0 (4.3-11.1) K/mcL RBC 4.03 L (4.19-5.50) M/mcL Hgb 11.8 L D (12.9-16.9) g/dL Hct 35.4 L (37.5-50.1) % MCV 87.8 (83.0-100.0) fL MCH 29.3 (28.0-33.3) pg MCHC 33.3 (31.6-35.5) g/dL RDW 13.2 (11.5-14.5) % Plt Count 526 H D (140-400) K/mcL MPV 9.3 L (9.4-12.4) fL Immature Gran % 1.1 (0-4) % Seg Neutrophils % 70.6 % Lymphocytes % 15.3 % Monocytes % 7.5 % Eosinophils % 4.8 % Basophils % 0.7 % Neutrophils # 6.4 (1.6-8.9) K/mcL Lymphocytes # 1.4 (0.6-4.6) K/mcL Monocytes # 0.7 (0.0-1.3) K/mcL Eosinophils # 0.4 (0.0-0.6) K/mcL Basophils # 0.1 (0.0-0.2) K/mcL D-Dimer (0-500) ng/mLFEU Sodium 133 L (136-145) mEq/L Potassium 4.0 (3.5-5.1) mEq/L Chloride 101 (98-107) mEq/L Carbon Dioxide 20 L (23-29) mEq/L BUN 18 (8-23) mg/dL Creatinine 1.27 (0.70-1.30) mg/dL Est GFR ( Amer) > 60 (> 60) Est GFR (Non-Af Amer) 55 L (> 60) BUN/Creatinine Ratio 14 (6-26) Glucose 108 H (70-105) mg/dL Calculated Osmolality 278 L (280-300) Lactic Acid 1.6 (0.5-2.2) mmol/L Calcium 9.5 (8.6-10.3) mg/dL Troponin I < 0.03 (< 0.04) ng/mL B-Natriuretic Peptide (Less than 100) pg/mL 01/18/18 01/18/18 Range/Units 11:24 11:24 WBC (4.3-11.1) K/mcL RBC (4.19-5.50) M/mcL Hgb (12.9-16.9) g/dL Hct (37.5-50.1) % MCV (83.0-100.0) fL MCH (28.0-33.3) pg MCHC (31.6-35.5) g/dL RDW (11.5-14.5) % Plt Count (140-400) K/mcL MPV (9.4-12.4) fL Immature Gran % (0-4) % Seg Neutrophils % % Lymphocytes % % Monocytes % % Eosinophils % % Basophils % % Neutrophils # (1.6-8.9) K/mcL Lymphocytes # (0.6-4.6) K/mcL Monocytes # (0.0-1.3) K/mcL Eosinophils # (0.0-0.6) K/mcL Basophils # (0.0-0.2) K/mcL D-Dimer 5013 H (0-500) ng/mLFEU Sodium (136-145) mEq/L Potassium (3.5-5.1) mEq/L Chloride (98-107) mEq/L Carbon Dioxide (23-29) mEq/L BUN (8-23) mg/dL Creatinine (0.70-1.30) mg/dL Est GFR ( Amer) (> 60) Est GFR (Non-Af Amer) (> 60) BUN/Creatinine Ratio (6-26) Glucose (70-105) mg/dL Calculated Osmolality (280-300) Lactic Acid (0.5-2.2) mmol/L Calcium (8.6-10.3) mg/dL Troponin I (< 0.04) ng/mL B-Natriuretic Peptide 128 H (Less than 100) pg/mL - Radiology Data Radiology results reviewed: Yes I reviewed the patient's radiology results. Chest X-Ray 01/18/18 10:57 IMPRESSION: No acute process. D/ / Marco Maddox MD / Marco Maddox MD Interpreting Provider: Marco Maddox MD Chest CTA 01/18/18 13:02 IMPRESSION: 1. No evidence of pulmonary embolism 2. Ground-glass and small irregular opacities in the right lower lobe adjacent to a cluster of granulomas has the appearance of an atypical infectious process D/ / Ronald Barrientos MD / Ronald Barrientos MD Interpreting Provider: Ronald Barrientos MD - EKG Data EKG #1 EKG attestation: Yes I reviewed and interpreted this EKG. EKG results narrative: Patient's EKG shows a sinus rhythm at a rate of 63 bpm, OK interval of 178, QRS duration 165, QTC of 453. There is a right bundle branch present on EKG. This was compared to previous EKG on 12/26/13 which showed a sinus rhythm and rate of 87 bpm and the right bundle branch block was present at that time.
[2018-01-18] MEDS ORDERED: Isovue-370 500 ML INFUS..BTL IV ONE (13:02)
[2018-01-18] MEDS ORDERED: Levofloxacin 750 MG/150 ML 750 MG/150 ML BAG IVPB ONE (14:48)
[2018-01-18] MEDS ORDERED: Vancomycin (wt based) 1,000 MG VIAL IVPB ONE (14:48)
[2018-01-18] MEDS ORDERED: Piperacillin/Tazobactam 3.375 GM in 0.9 % Sodium Chloride Mini Bag 100 ML IVPB ONE (14:48)
[2018-01-18] MEDS ORDERED: *HR* OxyCODONE Immed Rel 5 MG TABLET PO ONE (16:51)
[2018-01-18] MEDS ORDERED: Naloxone 0.4 MG/ML INJ IVP PRN (18:24)
--- NOTE | 2018-01-18 19:16 | Internal Med History&Physical ---
<PalomaChetan Quiroz - Last Filed: 01/18/18 19:51> Date of Encounter: 01/18/18 Time of Encounter: 17:00 Internal Medicine - H&P: HPI Chief complaint: SOB/Dyspnea Admitted From: Emergency Dept Plans for Post Hospital Care: Home History of present illness: Mr. Paniagua is a 77 year old male w/PMH of asthma, COPD, GERD, and HTN presents from the ED with chief complaint of shortness of breath and dyspnea that has been ongoing since total knee replacement of his left knee on December 31. Patient was a Dr. Burnett's office today and sent to ED due to shortness of breath. Patient reports worsening SOB/dyspnea with exertion, cough w/chest discomfort, and generalized weakness. Patient denies history of PE/DVTs. Patient denies recent illness, fever, chills, nausea, vomiting, changes in vision, unusual bleeding, chest pain, palpitations, abdominal pain, diarrhea, constipation, dizziness, lightheadedness, pre-syncope, or syncope. Past Med Surg Social Fam HX - Past Medical History Source: patient, old records reviewed, obtained from family Medical history: asthma, COPD, GERD, hypertension Psychiatric history: no psych history - Past Surgical History Surgical History: cholecystectomy, heart valve replacement (Bovine aortic valve replacement 2006. Has never been on anticoagulants for this reason.) - Social History Smoking Status: Never smoker Smokeless Tobacco Status: No Alcohol use: none Drug use: none Current living situation: Home Activity Level: Uses cane/walker Recent Out of Country Travel Within the Last 8 Weeks: No Exposure or Possible Exposure to Illness During Travel: No - Family History Father Race: Family Member Ethnicity: Non- Living Status: Age at : 78 Cause of : Alzheimer's disease Hx Family Neurologic Disorders: Yes (Alzheimer's disease) Mother Race: Family Member Ethnicity: Non- Living Status: Age at : 92 Cause of : Old age Brother Race: Family Member Ethnicity: Non- Living Status: Still Living Hx Family Musculoskeletal Disorders: Yes Sister Race: Family Member Ethnicity: Non- Living Status: Still Living Hx Family Musculoskeletal Disorders: Yes Internal Medicine - H&P: Meds Albuterol Sulfate [Ventolin Hfa] 2 puff IH Q4H PRN 06/14/17 [History] Ascorbic Acid [Vitamin C] 1,000 mg PO DAILY 06/14/17 [History] Budesonide/Formoterol 160/4.5 [Symbicort 160/4.5] 2 puff IH BIDR 06/14/17 [ History] Calcium Carbonate [Calcium] 600 mg PO DAILY 06/14/17 [History] Cyanocobalamin (Vitamin B-12) [Vitamin B-12] 1,000 mcg SL DAILY 06/14/17 [ History] Finasteride [Proscar] 5 mg PO DAILY 06/14/17 [History] Garlic [Odor Free Garlic] 100 mg PO DAILY 06/14/17 [History] Irbesartan [Avapro] 300 mg PO DAILY 06/14/17 [History] Multivitamin [One Daily Multivitamin] 1 each PO DAILY 06/14/17 [History] Pantoprazole Sodium 40 mg PO DAILY 06/14/17 [History] Sertraline [Zoloft] 100 mg PO DAILY 06/14/17 [History] Tamsulosin [Flomax] 0.8 mg PO DAILY 06/14/17 [History] Bethanechol [Urecholine] 12.5 mg PO TID tablet 01/15/18 [Rx] Docusate [Colace] 100 mg PO BID capsule 01/15/18 [Rx] Polyethylene Glycol 3350 [MiraLAX] 17 gm PO DAILY powd.pack 01/15/18 [Rx] Saline Nasal [place] [[place] Nasal [place]] 2 spray NS QID bottle 01/15/18 [Rx] Acetaminophen [Tylenol] 650 mg PO Q6HR 01/18/18 [History] Aspirin Enteric Coated [Aspirin EC] 325 mg PO DAILY 01/18/18 [History] 3 Allergy/AdvReac Type Severity Reaction Status Date / Time No Known Allergies Allergy Verified 01/18/18 10:56 All Systems PM: A 10-system review of systems was performed and is negative for pertinent findings except as documented above in the HPI. - Constitutional Constitutional: as per HPI, fatigue, weakness, no chills, no fever(s), no night sweats - EENT Eyes: no change in vision, no discharge, no pain, no photophobia Ears: no ear discharge, no ear pain, no tinnitus Nose, mouth and throat: no dysphagia, no nasal discharge, no neck pain, no sore throat - Breasts Breasts: as per HPI - Cardiovascular Cardiovascular ROS IM: as per HPI, dyspnea, dyspnea on exertion, no chest pain, no diaphoresis, no lightheadedness, no palpitations, no syncope - Respiratory Respiratory: as per HPI, cough, dyspnea, dyspnea on exertion, chest congestion, pain with cough, no wheezing, no excessive phlegm production - Gastrointestinal Gastrointestinal: no abdominal pain, no diarrhea, no hematemesis, no hematochezia, no melena, no nausea, no vomiting - Genitourinary Genitourinary ROS male: as per HPI - Musculoskeletal Musculoskeletal ROS IM: no numbness, no tingling - Integumentary Integumentary IM: no rash, no unusual bruising - Neurological Neurological ROS: as per HPI, weakness, no confusion, no convulsions, no focal weakness, no numbness, no tingling, no tremor(s) - Psychiatric Psychiatric: as per HPI - Endocrine Endocrine IM: as per HPI - Hematologic/Lymphatic Hematologic/Lymphatic: no easy bruising - Allergic/Immunologic Allergic/Immunologic: as per HPI - Constitutional Vitals: Temp Pulse Resp BP Pulse Ox 97.6 F 72 18 148/77 98 01/18/18 10:52 01/18/18 19:03 01/18/18 19:03 01/18/18 19:03 01/18/18 19:03 General appearance: Present: cooperative, mild distress (SOB and weakness), A&O X 3, pleasant, answers questions appropriately - Head Head exam: Present: atraumatic, normocephalic - Eye Eye exam: Present: PERRL, conjuntiva pink, sclera anicteric Pupils: Present: PERRL - ENT ENT exam: Present: normal exam - Neck Neck exam general surgery: Present: normal inspection, supple, trachea midline. Absent: lymphadenopathy - Respiratory Respiratory exam: Present: decreased breath sounds, respiratory distress (Mild) , wheezes. Absent: accessory muscle use, rales, rhonchi - Cardiovascular Cardiovascular exam: Present: RRR, +S1, +S2. Absent: diastolic murmur, gallop, rubs, systolic murmur - GI/Abdominal GI/Abdominal exam: Present: normal bowel sounds, soft, no peritoneal signs. Absent: distended, tenderness - Rectal Rectal exam: Present: deferred - Additional comments: exam deferred. - Extremities Exam Extremities exam: Present: warm, radial pulses palpable and symmetrical. Absent : calf tenderness, cyanotic, pedal edema - Back Exam Back exam: Present: normal inspection - Neurological Exam Neurological exam: Present: CN II-XII intact, oriented X3, no focal deficits. Absent: pronater drift, facial droop, speech deficit - Psychiatric Psychiatric exam: Present: normal affect, normal mood - Skin Skin exam: Present: dry, intact Internal Med - H&P Results - Labs CBC & Chem 7: 01/18/18 11:24 01/18/18 11:24 - EKG Data EKG shows normal: sinus rhythm - EKG Data Prior EKG available for review: yes EKG comments: 01/18/18 19:21 EKG dated 12/26/13 shows sinus rhythm with PVCs with borderline first-degree AV block, left axis deviation, RBBB with left anterior fascicular block, possible anterior infarct of undetermined age, inferior ST-T changes that may be due to mild myocardial ischemia, and low QRS voltage in precordial leads. EKG dated 01/18/18 shows sinus rhythm with occasional ventricular premature complexes, RBBB, left anterior fascicular block, and moderate T-wave abnormality (Consider lateral ischemia). - Diagnostic Studies Chest x-ray Additional comments: Impressions Chest X-Ray 01/18/18 10:57 IMPRESSION: No acute process. D/ / Marco Maddox MD / Marco Maddox MD Interpreting Provider: Marco Maddox MD Other Images Additional comments: Impressions Chest CTA 01/18/18 13:02 IMPRESSION: 1. No evidence of pulmonary embolism 2. Ground-glass and small irregular opacities in the right lower lobe adjacent to a cluster of granulomas has the appearance of an atypical infectious process D/ / Ronald Barrientos MD / Ronald Barrientos MD Interpreting Provider: Ronald Barrientos MD - Assessment and plan (1) HCAP (healthcare-associated pneumonia) Current Visit: Yes Status: Acute Assessment and plan: Acute HCAP r/t recent hospitalization on December 31 for total knee replacement of left knee. Pt. reports worsening SOB/dyspnea since procedure. CTA of chest today shows no evidence of PE but also shows groundglass and small irregular PACs in the right lower lobe adjacent to the cluster of granulomas with the appearance of an atypical infectious process. IVPB levaquin 750 mg daily, Zosyn 3.375 gm Q8HR, and Vancomycin w/Pharmacy dosing for infection coverage. Sputum culture ordered. Blood cultures 2 ordered. Legionella and strep pneumoniae antigens ordered. Will adjust abx coverage based on culture results if warranted. Supplemental O2 with titration and SPO2 monitoring. DuoNeb's every 4 scheduled. Mucinex for cough. Patient currently not sepsis criteria but will be monitored closely. Patient discussed with Dr. Rucker who agrees with plan of care. Patient is high risk for further morbidity and infection/sepsis based on current sx and HCAP, SOB/dyspnea, SP total knee replacement, hx, and risk factors. Inpatient. (2) Generalized weakness Current Visit: Yes Status: Acute Assessment and plan: Acute generalized weakness accompanying HCAP sx. Falls/safety precautions, up with assist, up to bedside commode w/assist only. PT/OT consults. (3) Elevated d-dimer Current Visit: Yes Status: Acute Assessment and plan: Acutely elevated D-dimer of 5013 on admission. Concern was for possible PE d/t SOB and SP left total knee replacement but CTA negative for PE. Bilateral Dopplers of LEs ordered to r/o DVTs. Heparin 5,000 units SQ Q8 for DVT prophylaxis. (4) Hyponatremia Current Visit: Yes Status: Acute Assessment and plan: Acute hyponatremia w/sodium of 133 on admission. Pt. receiving 0.9 NS IV fluids @75 mL/HR. Monitor f/u labs. Continuous telemetry. (5) Cough Current Visit: Yes Status: Acute Assessment and plan: Acute cough r/t current HCAP dx. Sputum culture ordered. Mucinex for cough. DuoNebs Q4HR scheduled. (6) Shortness of breath Current Visit: Yes Status: Acute Assessment and plan: Acute SOB/Dyspnea. Supplemental O2 with titration and SPO2 monitoring. DuoNeb' s every 4 scheduled. Mucinex for cough. (7) Status post total knee replacement, left Current Visit: Yes Status: Acute Assessment and plan: SP total knee replacement of left knee on December 31. Pt. to f/u w/Dr. Burnett as OP. (8) COPD (chronic obstructive pulmonary disease) Current Visit: Yes Status: Chronic Assessment and plan: Hx of chronic COPD. Stable. Supplemental O2 w/titration and SpO2 monitoring. DuoNebs Q4HR scheduled. Mucinex cough. Qualifiers: COPD type: unspecified COPD Qualified Code(s): J44.9 - Chronic obstructive pulmonary disease, unspecified (9) HTN (hypertension) Current Visit: Yes Status: Chronic Assessment and plan: Hx of chronic HTN. Monitor pt. and VS. Continue pts. Irbesartan. Qualifiers: Hypertension type: essential hypertension Qualified Code(s): I10 - Essential (primary) hypertension (10) Anemia Current Visit: Yes Status: Chronic Assessment and plan: Hx of chronic anemia w/Hgb of 11.8 and Hct of 35.4 on admission. Pt. denies unusual bleeding. Monitor H/H in a.m. labs. Qualifiers: Anemia type: other cause Other causes of anemia: acute posthemorrhagic Qualified Code(s): D62 - Acute posthemorrhagic anemia (11) GERD (gastroesophageal reflux disease) Current Visit: Yes Status: Chronic Assessment and plan: Hx of chronic GERD. Continue patient's pantoprazole sodium. Zofran IVP 4 mg every 6 hours when necessary for N/V. Qualifiers: Esophagitis presence: esophagitis presence not specified Qualified Code(s) : K21.9 - Gastro-esophageal reflux disease without esophagitis (12) DVT prophylaxis Current Visit: Yes Status: Acute Assessment and plan: Heparin 5,000 units SQ Q8 for DVT prophylaxis. Monitor pt. for signs of bleeding. - Time Spent With Patient Total time spent is greater than 50% in coordination of care (as documented) at patient's floor/unit and/or counseling patient: 25 - 35 minutes <Parviz Rucker P - Last Filed: 01/20/18 00:03> Date of Encounter: 01/20/18 Internal Medicine - H&P: HPI History of present illness: Mr. Paniagua is a 77 year old male All Systems PM: A 10-system review of systems was performed and is negative for pertinent findings except as documented above in the HPI. - Constitutional Vitals: Temp Pulse Resp BP Pulse Ox 98.5 F 73 18 160/70 96 01/19/18 23:38 01/19/18 23:38 01/19/18 23:38 01/19/18 23:38 01/19/18 23:38 Internal Med - H&P Results - Labs CBC & Chem 7: 01/19/18 03:10 01/19/18 03:10 Labs: Short CBC 01/19/18 Range/Units 03:10 WBC 7.1 (4.3-11.1) K/mcL Hgb 10.3 L D (12.9-16.9) g/dL Hct 31.5 L (37.5-50.1) % Plt Count 409 H (140-400) K/mcL Neutrophils # 4.8 (1.6-8.9) K/mcL BMP 01/19/18 03:10 Sodium 135 L Potassium 4.0 Chloride 104 Carbon Dioxide 21 L BUN 17 Creatinine 1.17 Glucose 99 Calcium 8.3 L Cardiac Enzymes 01/19/18 Range/Units 03:10 Troponin I < 0.03 (< 0.04) ng/mL Liver Function 01/19/18 Range/Units 03:10 Total Bilirubin 0.5 (0.3-1.0) mg/dL AST 17 (13-39) Units/L ALT 13 (7-52) Units/L Alkaline Phosphatase 65 (34-104) Units/L Albumin 3.1 L (3.5-5.7) g/dL - Attending Attestation I examined this patient and my medical decision-making was reviewed with the Resident Physician/ART FRAMING MANAGER. I agree with the documented findings, disposition and treatment plan as described except to the extent set forth below. - Assessment and plan (1) Status post total knee replacement, left Current Visit: Yes Status: Acute (2) GERD (gastroesophageal reflux disease) Current Visit: Yes Status: Chronic Qualifiers: Esophagitis presence: esophagitis presence not specified Qualified Code(s) : K21.9 - Gastro-esophageal reflux disease without esophagitis (3) Anemia Current Visit: Yes Status: Chronic Qualifiers: Anemia type: other cause Other causes of anemia: acute posthemorrhagic Qualified Code(s): D62 - Acute posthemorrhagic anemia (4) Shortness of breath Current Visit: Yes Status: Acute (5) Cough Current Visit: Yes Status: Acute (6) HCAP (healthcare-associated pneumonia) Current Visit: Yes Status: Acute (7) COPD (chronic obstructive pulmonary disease) Current Visit: Yes Status: Chronic Qualifiers: COPD type: unspecified COPD Qualified Code(s): J44.9 - Chronic obstructive pulmonary disease, unspecified (8) HTN (hypertension) Current Visit: Yes Status: Chronic Qualifiers: Hypertension type: essential hypertension Qualified Code(s): I10 - Essential (primary) hypertension (9) DVT prophylaxis Current Visit: Yes Status: Acute (10) Generalized weakness Current Visit: Yes Status: Acute (11) Elevated d-dimer Current Visit: Yes Status: Acute (12) Hyponatremia Current Visit: Yes Status: Acute (13) Acute respiratory failure Current Visit: Yes Status: Acute Qualifiers: Respiratory failure complication: unspecified whether with hypoxia or hypercapnia Qualified Code(s): J96.00 - Acute respiratory failure, unspecified whether with hypoxia or hypercapnia - Time Spent With Patient Total time spent is greater than 50% in coordination of care (as documented) at patient's floor/unit and/or counseling patient:
[2018-01-18] MEDS: 0.9 % Sodium Chloride 1,000 ML IVC SCH (20:09)
[2018-01-18] MEDS: Acetaminophen 325 MG TABLET PO PRN (20:14)
[2018-01-18] MEDS: Saline Nasal Spray 44 ML BOTTLE NS SCH (20:17)
[2018-01-18] MEDS: Budesonide/Formoterol 160/4.5 MDI IH SCH (20:37)
[2018-01-18] MEDS: Ipratropium/Albuterol Neb 3 ML IH SCH ×2 (20:37→23:42)
--- NOTE | 2018-01-18 22:48 | Emergency Department Note ---
Disposition Clinical Impression: Shortness of breath, Cough Pneumonia Qualifiers: Pneumonia type: due to unspecified organism Laterality: right Lung location: lower lobe of lung Qualified Code(s): J18.1 - Lobar pneumonia, unspecified organism Disposition: Admitted As Inpatient Condition: Good General Adult HPI - General Chief complaint: ED Shortness of Breath/Dyspnea Stated complaint: SOB, winded, post knee surgery Time Seen by Provider: 01/18/18 11:02 Source: patient, family Limitations: no limitations - History of Present Illness Pain Scale: 0 - Related Data Home Medications Medication Instructions Recorded Confirmed Albuterol Sulfate [Ventolin Hfa] 2 puff IH Q4H PRN 06/14/17 01/18/18 Ascorbic Acid [Vitamin C] 1,000 mg PO DAILY 06/14/17 01/18/18 Budesonide/Formoterol 160/4.5 2 puff IH BIDR 06/14/17 01/18/18 [Symbicort 160/4.5] Calcium Carbonate [Calcium] 600 mg PO DAILY 06/14/17 01/18/18 Cyanocobalamin (Vitamin B-12) 1,000 mcg SL DAILY 06/14/17 01/18/18 [Vitamin B-12] Finasteride [Proscar] 5 mg PO DAILY 06/14/17 01/18/18 Garlic [Odor Free Garlic] 100 mg PO DAILY 06/14/17 01/18/18 Irbesartan [Avapro] 300 mg PO DAILY 06/14/17 01/18/18 Multivitamin [One Daily 1 each PO DAILY 06/14/17 01/18/18 Multivitamin] Pantoprazole Sodium 40 mg PO DAILY 06/14/17 01/18/18 Sertraline [Zoloft] 100 mg PO DAILY 06/14/17 01/18/18 Tamsulosin [Flomax] 0.8 mg PO DAILY 06/14/17 01/18/18 Acetaminophen [Tylenol] 650 mg PO Q6HR 01/18/18 01/18/18 Aspirin Enteric Coated [Aspirin EC] 325 mg PO DAILY 01/18/18 01/18/18 Previous Rx's Medication Instructions Recorded Bethanechol [Urecholine] 12.5 mg PO TID tablet 01/15/18 Docusate [Colace] 100 mg PO BID capsule 04/10/18 Polyethylene Glycol 3350 [MiraLAX] 17 gm PO DAILY powd.pack 01/15/18 Saline Nasal [place] [[place] Nasal 2 spray NS QID bottle 01/15/18 [place]] Allergies Allergy/AdvReac Type Severity Reaction Status Date / Time No Known Allergies Allergy Verified 01/18/18 10:56 Cardiovascular: Denies: chest pain Respiratory: Reports: cough, dyspnea, sputum production Gastrointestinal: Denies: abdominal pain, nausea, vomiting Past Medical History - Past Medical History Medical history: Reports: asthma, COPD, GERD, hypertension Surgical history: Reports: cholecystectomy, heart valve replacement (Bovine aortic valve replacement 2006. Has never been on anticoagulants for this reason.) Psychiatric history: Reports: no psych history - Social History Smoking Status: Never smoker Smokeless Tobacco Status: No Alcohol use: Reports: none Drug use: Reports: none Physical Exam - General Limitations: no limitations General appearance: alert, anxious Course Vital Signs Temperature 97.6 F 01/18/18 10:52 Pulse Rate 71 01/18/18 10:52 Respiratory Rate 26 01/18/18 10:52 Blood Pressure 155/84 01/18/18 10:52 O2 Sat by Pulse Oximetry 100 01/18/18 10:52 Temperature 97.8 F 01/18/18 19:42 Pulse Rate 74 01/18/18 19:42 Respiratory Rate 18 01/18/18 20:37 Blood Pressure 129/74 01/18/18 19:42 O2 Sat by Pulse Oximetry 98 01/18/18 20:37 Oxygen Delivery Oxygen Delivery Nasal Cannula Medical Decision Making - Lab Data Result diagrams: 01/18/18 11:24 01/18/18 11:24 Lab Results 01/18/18 01/18/18 01/18/18 Range/Units 11:24 11:24 11:24 WBC 9.0 (4.3-11.1) K/mcL RBC 4.03 L (4.19-5.50) M/mcL Hgb 11.8 L D (12.9-16.9) g/dL Hct 35.4 L (37.5-50.1) % MCV 87.8 (83.0-100.0) fL MCH 29.3 (28.0-33.3) pg MCHC 33.3 (31.6-35.5) g/dL RDW 13.2 (11.5-14.5) % Plt Count 526 H D (140-400) K/mcL MPV 9.3 L (9.4-12.4) fL Immature Gran % 1.1 (0-4) % Seg Neutrophils % 70.6 % Lymphocytes % 15.3 % Monocytes % 7.5 % Eosinophils % 4.8 % Basophils % 0.7 % Neutrophils # 6.4 (1.6-8.9) K/mcL Lymphocytes # 1.4 (0.6-4.6) K/mcL Monocytes # 0.7 (0.0-1.3) K/mcL Eosinophils # 0.4 (0.0-0.6) K/mcL Basophils # 0.1 (0.0-0.2) K/mcL D-Dimer (0-500) ng/mLFEU Sodium 133 L (136-145) mEq/L Potassium 4.0 (3.5-5.1) mEq/L Chloride 101 (98-107) mEq/L Carbon Dioxide 20 L (23-29) mEq/L BUN 18 (8-23) mg/dL Creatinine 1.27 (0.70-1.30) mg/dL Est GFR ( Amer) > 60 (> 60) Est GFR (Non-Af Amer) 55 L (> 60) BUN/Creatinine Ratio 14 (6-26) Glucose 108 H (70-105) mg/dL Calculated Osmolality 278 L (280-300) Lactic Acid 1.6 (0.5-2.2) mmol/L Calcium 9.5 (8.6-10.3) mg/dL Troponin I < 0.03 (< 0.04) ng/mL B-Natriuretic Peptide (Less than 100) pg/mL 01/18/18 01/18/18 Range/Units 11:24 11:24 WBC (4.3-11.1) K/mcL RBC (4.19-5.50) M/mcL Hgb (12.9-16.9) g/dL Hct (37.5-50.1) % MCV (83.0-100.0) fL MCH (28.0-33.3) pg MCHC (31.6-35.5) g/dL RDW (11.5-14.5) % Plt Count (140-400) K/mcL MPV (9.4-12.4) fL Immature Gran % (0-4) % Seg Neutrophils % % Lymphocytes % % Monocytes % % Eosinophils % % Basophils % % Neutrophils # (1.6-8.9) K/mcL Lymphocytes # (0.6-4.6) K/mcL Monocytes # (0.0-1.3) K/mcL Eosinophils # (0.0-0.6) K/mcL Basophils # (0.0-0.2) K/mcL D-Dimer 5013 H (0-500) ng/mLFEU Sodium (136-145) mEq/L Potassium (3.5-5.1) mEq/L Chloride (98-107) mEq/L Carbon Dioxide (23-29) mEq/L BUN (8-23) mg/dL Creatinine (0.70-1.30) mg/dL Est GFR ( Amer) (> 60) Est GFR (Non-Af Amer) (> 60) BUN/Creatinine Ratio (6-26) Glucose (70-105) mg/dL Calculated Osmolality (280-300) Lactic Acid (0.5-2.2) mmol/L Calcium (8.6-10.3) mg/dL Troponin I (< 0.04) ng/mL B-Natriuretic Peptide 128 H (Less than 100) pg/mL Attestation Statement - Attestation Attestation: I examined this patient and my medical decision-making was reviewed with the Resident Physician. I agree with the documented findings, disposition and treatment plan as described except to the extent set forth below. Pneumonia patient who was an inpatient for surgical procedure about 2 weeks ago. Hemodynamically stable, does not meet SIRS criteria for sepsis. Does not meet Q SOFA criteria for sepsis. Admitted to the hospital for further evaluation and treatment.
[2018-01-18] MEDS: Piperacillin/Tazobactam 3.375 GM in 0.9 % Sodium Chloride Mini Bag 100 ML IVPB SCH (23:38)
[2018-01-18] MEDS: *HR* Heparin 5,000 UNIT/ML VIAL SQ SCH (23:40)
[2018-01-18] MEDS: Ondansetron 4 MG/2 ML VIAL IVP PRN (23:45)
[2018-01-19] MEDS: Ipratropium/Albuterol Neb 3 ML IH SCH ×6 (03:35→23:13)
[2018-01-19] MEDS: Acetaminophen 325 MG TABLET PO PRN ×3 (03:40→16:20)
[2018-01-19 04:48] LABS: Basophils # 0.1 K/mcL (0.0-0.2); Basophils % 0.7 %; Eosinophils # 0.5 K/mcL (0.0-0.6); Eosinophils % 6.9 %; Hematocrit 31.5 % (37.5-50.1); Hemoglobin 10.3 g/dL (12.9-16.9); Lymphocytes % 14.4 %; Mean Corpuscular HGB Conc 32.7 g/dL (31.6-35.5); Mean Corpuscular Hemoglobin 28.7 pg (28.0-33.3); Mean Corpuscular Volume 87.7 fL (83.0-100.0); Mean Platelet Volume 9.5 fL (9.4-12.4); Monocytes # 0.7 K/mcL (0.0-1.3); Monocytes % 9.7 %; Neutrophils # 4.8 K/mcL (1.6-8.9); Platelet Count 409 K/mcL (140-400); Red Blood Count 3.59 M/mcL (4.19-5.50); Red Cell Distribution Width 13.3 % (11.5-14.5); Segmented Neutrophils % 67.3 %
[2018-01-19 04:57] LABS: INR 1.4; Prothrombin Time 15.6 Seconds (9.4-12.1)
[2018-01-19 05:00] LABS: Activated Partial Thrombo Time 30.5 Seconds (26.0-36.0)
[2018-01-19 05:09] LABS: Alanine Aminotransferase 13 Units/L (7-52); Albumin 3.1 g/dL (3.5-5.7); Albumin/Globulin Ratio 1.1 (1.1-2.2); Alkaline Phosphatase 65 Units/L (34-104); Aspartate Amino Transferase 17 Units/L (13-39); BUN/Creatinine Ratio 15 (6-26); Bilirubin,Total 0.5 mg/dL (0.3-1.0); Blood Urea Nitrogen 17 mg/dL (8-23); Calcium 8.3 mg/dL (8.6-10.3); Carbon Dioxide 21 mEq/L (23-29); Chloride 104 mEq/L (98-107); Chol/HDL Ratio 3.8 (0-4.9); Cholesterol 110 mg/dL (< 200); Globulin 2.9 g/dL (2.4-3.5); Glucose 99 mg/dL (70-105); HDL Cholesterol 29 mg/dL (40-59); LDL Cholesterol,Calculated 63 mg/dL (0-99); Magnesium 2.2 mg/dL (1.6-2.6); Osmolality,Calculated 282 (280-300); Sodium 135 mEq/L (136-145); Triglycerides 92 mg/dL (< 150); eGFR For African Americans > 60 (> 60); eGFR For Non-African Americans > 60 (> 60)
--- NOTE | 2018-01-19 07:15 | Electrocardiograph Report ---
[facility] [employer] Test Date: 2018-01-18 Pat Name: Kyler Paniagua Department: 102 Room: 3B16 Gender: M Rn Ante Partum: [facility] : 1940 Requested By: Adrien Villa Order Number: [id number] Reading MD: Emiliano Holcomb Measurements Intervals [place] Rate: 63 P: 22 CA: 178 QRS: -66 QRSD: 165 T: -22 QT: 447 QTc: 453 Interpretive Statements SINUS RHYTHM WITH OCCASIONAL VENTRICULAR PREMATURE COMPLEXES RIGHT BUNDLE BRANCH BLOCK [120+ ms QRS DURATION, UPRIGHT V1, 40+ ms S IN I/aVL/V4/V5/V6] LEFT ANTERIOR FASCICULAR BLOCK [QRS AXIS <= -45, QR IN I, RS IN II] MODERATE T-WAVE ABNORMALITY, CONSIDER LATERAL ISCHEMIA [-0.1+ mV T WAVE IN I/aVL/V5/V6] Electronically Signed On 01-19-2018 7:13:59 EDT by Emiliano Holcomb
[2018-01-19] MEDS: Budesonide/Formoterol 160/4.5 MDI IH SCH ×2 (07:30→19:25)
[2018-01-19] MEDS: Aspirin Enteric Coated 325 MG Tablet PO SCH (08:13)
[2018-01-19] MEDS: Ascorbic Acid 500 MG TABLET PO SCH (08:14)
[2018-01-19] MEDS: Finasteride 5 MG TABLET PO SCH (08:14)
[2018-01-19] MEDS: Cyanocobalamin (B-12) 1,000 MCG TABLET PO SCH (08:14)
[2018-01-19] MEDS: Multivit/Ca/Min/Fe/FA 1 TAB TABLET PO SCH (08:14)
[2018-01-19] MEDS: *HR* Heparin 5,000 UNIT/ML VIAL SQ SCH ×3 (08:15→23:11)
[2018-01-19] MEDS: Piperacillin/Tazobactam 3.375 GM in 0.9 % Sodium Chloride Mini Bag 100 ML IVPB SCH ×2 (08:15→16:20)
[2018-01-19] MEDS: Saline Nasal Spray 44 ML BOTTLE NS SCH ×4 (08:32→20:02)
[2018-01-19] MEDS: 0.9 % Sodium Chloride 1,000 ML IVC SCH (08:32)
--- NOTE | 2018-01-19 11:04 | Internal Med Progress Note ---
Date of Encounter: 01/19/18 Time of Encounter: 10:05 - Assessment and plan (1) Status post total knee replacement, left Current Visit: Yes Status: Acute Assessment and plan: Total knee replacement left knee, 12/[address] Burnett. Follow-up outpatient. Patient will be admitted to [facility] on Sunday 01/21 for rehabilitation. (2) GERD (gastroesophageal reflux disease) Current Visit: Yes Status: Chronic Assessment and plan: Chronic. Continue PPI. Zofran IVP 4 mg every 6 hours when necessary for N/V. Qualifiers: Esophagitis presence: esophagitis presence not specified Qualified Code(s) : K21.9 - Gastro-esophageal reflux disease without esophagitis (3) Anemia Current Visit: Yes Status: Chronic Assessment and plan: Patient appears to have anemia since surgery in December,. Hgb 10.3 today, decreased from admission. Patient denies any hematuria, hematochezia, melena. Continue to monitor and trend H&H Qualifiers: Anemia type: other cause Other causes of anemia: acute posthemorrhagic Qualified Code(s): D62 - Acute posthemorrhagic anemia (4) Shortness of breath Current Visit: Yes Status: Acute Assessment and plan: Acute shortness of breath, dyspnea on exertion, dyspnea rest. Onset after total knee replacement 12/31/17. Patient with COPD, HCHP. Elevated d-dimer on admission. CTA negative for PE. Bilateral lower extremity venous Doppler negative for DVT. Continue albuterol oral inhaler, duo nebs, Symbicort, Levaquin IV, Zosyn IV. (5) Cough Current Visit: Yes Status: Acute Assessment and plan: Patient reports acute cough, states it is nonproductive. Sputum culture is ordered and pending. Guaifenesin 600 mg by mouth twice a day when necessary. (6) HCAP (healthcare-associated pneumonia) Current Visit: Yes Status: Acute Assessment and plan: She recently hospitalized on 12/31/17 for total knee replacement. He reports shortness of breath since that time. Chest CT a negative for PE despite elevated d-dimer, does show groundglass up a city and right lower lobe adjacent to a cluster of granulomas with the appearance of atypical infectious process. Bacterial pneumonia being treated with IV antibiotics. She with wheezing and left posterior lung sawant, clear and diminished in right. He is requiring supplemental oxygen but does not wear oxygen at home. Legionella and strep pneumo negative. Blood cultures ordered and pending. Patient does not meet SIRS or sepsis criteria. Continue IV Levaquin, IV Zosyn, IV vancomycin pharmacy to dose Continue O2 via nasal cannula, titrate as needed to maintain sats greater than 92% Duo nebs scheduled every 4 hours Mucinex 600 mg by mouth twice a day for cough. Dr. jones, vital signs, patient condition. (7) COPD (chronic obstructive pulmonary disease) Current Visit: Yes Status: Chronic Assessment and plan: Chronic. Plan as above. Qualifiers: COPD type: unspecified COPD Qualified Code(s): J44.9 - Chronic obstructive pulmonary disease, unspecified (8) HTN (hypertension) Current Visit: Yes Status: Chronic Assessment and plan: Chronic. Continue home medications. Vitals per admission orders. Qualifiers: Hypertension type: essential hypertension Qualified Code(s): I10 - Essential (primary) hypertension (9) DVT prophylaxis Current Visit: Yes Status: Acute Assessment and plan: Heparin subcutaneous every 8 hours. (10) Generalized weakness Current Visit: Yes Status: Acute Assessment and plan: Patient reports generalized weakness, likely associated with recent surgery, increased immobilization status post knee surgery, pneumonia. Patient reports that he will be discharged to [facility] for rehabilitation after discharge. Easily discharge from [facility], he was to begin [place] [facility] on day of admission, but canceled due to not feeling well. (11) Elevated d-dimer Current Visit: Yes Status: Acute Assessment and plan: [place] on admission. Bilateral lower extremity Dopplers negative for DVT, chest CTA negative for PE. (12) Hyponatremia Current Visit: Yes Status: Acute Assessment and plan: On 35 today. Improving. Continue to monitor. Continue gentle IVF hydration, 0.9 normal saline at 75 mL's per hour. (13) Acute respiratory failure Current Visit: Yes Status: Acute Assessment and plan: Secondary to HCHP, exacerbation of COPD. Patient is requiring supplemental oxygen to maintain his sats greater than 92%. Titrate as needed. Qualifiers: Respiratory failure complication: unspecified whether with hypoxia or hypercapnia Qualified Code(s): J96.00 - Acute respiratory failure, unspecified whether with hypoxia or hypercapnia - Time Spent With Patient Total time spent is greater than 50% in coordination of care (as documented) at patient's floor/unit and/or counseling patient: less than 15 minutes - Subjective Interval history: Patient was seen and assessed at bedside at 10:05 AM. He is obviously shortness of breath at rest. He denies any chest pain, does report intermittent nausea. He is not on home O2. Patient reports that due to difficulties from left knee surgery he will be going to [facility] on Sunday for rehabilitation. He denies any headache, vomiting, diarrhea. He denies abdominal pain, chest pain, diaphoresis, headache, vision changes. - Constitutional Vitals: Temp Pulse Resp BP Pulse Ox 98.1 F 76 16 137/66 97 01/19/18 10:51 01/19/18 10:51 01/19/18 10:51 01/19/18 10:51 01/19/18 10:51 General appearance: Present: cooperative, mild distress (SOB and weakness), A&O X 3, pleasant, answers questions appropriately - Head Head exam: Present: atraumatic, normal inspection, normocephalic - Eye Eye exam: Present: normal appearance, conjuntiva pink, sclera anicteric - Neck Neck exam general surgery: Present: normal inspection, supple, trachea midline. Absent: lymphadenopathy, tenderness - Respiratory Respiratory exam: Present: CTAB, respiratory distress, wheezes. Absent: accessory muscle use, rales, rhonchi - Cardiovascular Cardiovascular exam: Present: RRR, +S1, +S2. Absent: diastolic murmur, gallop, rubs, systolic murmur - GI/Abdominal GI/Abdominal exam: Present: normal bowel sounds, soft. Absent: distended, hepatomegaly, tenderness - Extremities Exam Extremities exam: Present: normal capillary refill, normal inspection, warm, radial pulses palpable and symmetrical. Absent: calf tenderness, cyanotic, pedal edema, tenderness - Neurological Exam Neurological exam: Present: alert, oriented X3, no focal deficits. Absent: altered, facial droop, speech deficit - Skin Skin exam: Present: dry, intact, normal color, warm. Absent: rash Internal Medicine: Result - Labs CBC & Chem 7: 01/19/18 03:10 01/19/18 03:10 Labs: Short CBC 01/19/18 Range/Units 03:10 WBC 7.1 (4.3-11.1) K/mcL Hgb 10.3 L D (12.9-16.9) g/dL Hct 31.5 L (37.5-50.1) % Plt Count 409 H (140-400) K/mcL Neutrophils # 4.8 (1.6-8.9) K/mcL BMP 01/19/18 03:10 Sodium 135 L Potassium 4.0 Chloride 104 Carbon Dioxide 21 L BUN 17 Creatinine 1.17 Glucose 99 Calcium 8.3 L Cardiac Enzymes 01/18/18 01/19/18 Range/Units 20:18 03:10 Troponin I < 0.03 < 0.03 (< 0.04) ng/mL Liver Function 01/19/18 Range/Units 03:10 Total Bilirubin 0.5 (0.3-1.0) mg/dL AST 17 (13-39) Units/L ALT 13 (7-52) Units/L Alkaline Phosphatase 65 (34-104) Units/L Albumin 3.1 L (3.5-5.7) g/dL - ABG Interpretation ABG results: PT/INR, D-dimer PT 15.6 Seconds (9.4-12.1) H 01/19/18 03:10 D-Dimer 5013 ng/mLFEU (0-500) H 01/18/18 11:24 Consult Discharge Plan - Plan Referrals: Sb Mckinney MD [Primary Care Provider] -
[2018-01-19] MEDS: Ondansetron 4 MG/2 ML VIAL IVP PRN (19:54)
[2018-01-19] MEDS ORDERED: OXYCODONE Oral CONC 10 MG/0.5 ML ORAL.SYG SL PRN (19:57)
[2018-01-19] MEDS: *HR* HYDROcodone/Acet 5/325 mg TABLET PO PRN (20:21)
[2018-01-19] MEDS: Levofloxacin 750 MG/150 ML 750 MG/150 ML BAG IVPB SCH (22:11)
[2018-01-20] MEDS: *HR* HYDROcodone/Acet 5/325 mg TABLET PO PRN ×4 (02:31→20:23)
[2018-01-20] MEDS: Piperacillin/Tazobactam 3.375 GM in 0.9 % Sodium Chloride Mini Bag 100 ML IVPB SCH ×3 (02:33→20:24)
[2018-01-20] MEDS: 0.9 % Sodium Chloride 1,000 ML IVC SCH ×2 (02:34→17:22)
[2018-01-20] MEDS: Ipratropium/Albuterol Neb 3 ML IH SCH ×6 (03:34→23:15)
[2018-01-20 04:29] LABS: Basophils # 0.1 K/mcL (0.0-0.2); Basophils % 0.8 %; Eosinophils # 0.6 K/mcL (0.0-0.6); Eosinophils % 8.9 %; Hematocrit 31.2 % (37.5-50.1); Hemoglobin 10.1 g/dL (12.9-16.9); Immature Granulocytes % 1.6 % (0-4); Lymphocytes # 0.8 K/mcL (0.6-4.6); Mean Corpuscular HGB Conc 32.4 g/dL (31.6-35.5); Mean Corpuscular Hemoglobin 28.9 pg (28.0-33.3); Mean Corpuscular Volume 89.4 fL (83.0-100.0); Mean Platelet Volume 9.3 fL (9.4-12.4); Monocytes # 0.5 K/mcL (0.0-1.3); Monocytes % 7.9 %; Neutrophils # 4.2 K/mcL (1.6-8.9); Nucleated Red Blood Cells 0.6 /100 WBC (0); Platelet Count 391 K/mcL (140-400); Red Blood Count 3.49 M/mcL (4.19-5.50); Red Cell Distribution Width 13.4 % (11.5-14.5); Segmented Neutrophils % 67.8 %
[2018-01-20 04:55] LABS: Alanine Aminotransferase 13 Units/L (7-52); Albumin 3.1 g/dL (3.5-5.7); Albumin/Globulin Ratio 1.1 (1.1-2.2); Alkaline Phosphatase 64 Units/L (34-104); Aspartate Amino Transferase 18 Units/L (13-39); BUN/Creatinine Ratio 9 (6-26); Bilirubin,Total 0.4 mg/dL (0.3-1.0); Blood Urea Nitrogen 10 mg/dL (8-23); Calcium 8.6 mg/dL (8.6-10.3); Carbon Dioxide 23 mEq/L (23-29); Chloride 107 mEq/L (98-107); Globulin 2.8 g/dL (2.4-3.5); Glucose 117 mg/dL (70-105); Osmolality,Calculated 288 (280-300); Potassium 3.8 mEq/L (3.5-5.1); Sodium 139 mEq/L (136-145); Total Protein 5.9 g/dL (6.4-8.9); eGFR For African Americans > 60 (> 60); eGFR For Non-African Americans > 60 (> 60)
[2018-01-20] MEDS: Budesonide/Formoterol 160/4.5 MDI IH SCH ×2 (07:32→19:40)
[2018-01-20] MEDS: *HR* Heparin 5,000 UNIT/ML VIAL SQ SCH ×3 (07:47→23:49)
[2018-01-20] MEDS: Multivit/Ca/Min/Fe/FA 1 TAB TABLET PO SCH (07:48)
[2018-01-20] MEDS: Cyanocobalamin (B-12) 1,000 MCG TABLET PO SCH (07:49)
[2018-01-20] MEDS: Ascorbic Acid 500 MG TABLET PO SCH (07:49)
[2018-01-20] MEDS: Saline Nasal Spray 44 ML BOTTLE NS SCH ×4 (07:49→20:07)
[2018-01-20] MEDS: Aspirin Enteric Coated 325 MG Tablet PO SCH (07:49)
[2018-01-20] MEDS: Finasteride 5 MG TABLET PO SCH (07:49)
--- NOTE | 2018-01-20 16:42 | Internal Med Progress Note ---
Date of Encounter: 01/20/18 Time of Encounter: 10:15 - Assessment and plan (1) Status post total knee replacement, left Current Visit: Yes Status: Acute Assessment and plan: Total knee replacement left knee, 12/[address] Burnett. Follow-up outpatient. Patient will be admitted to [facility] on Sunday 01/21 for rehabilitation. Incision looks good, well approximated without redness or drainage. Dressing is dry and intact. Pt reports limited ROM due to pain. (2) GERD (gastroesophageal reflux disease) Current Visit: Yes Status: Chronic Assessment and plan: Chronic. Continue PPI. Pt denies new symptoms. Zofran IVP 4 mg every 6 hours when necessary for N/V. Qualifiers: Esophagitis presence: esophagitis presence not specified Qualified Code(s) : K21.9 - Gastro-esophageal reflux disease without esophagitis (3) Anemia Current Visit: Yes Status: Chronic Assessment and plan: Patient appears to have anemia since surgery in December,. Hgb 10.1 today, decreased from admission, but stable. Patient denies any hematuria, hematochezia, melena. Continue to monitor and trend H&H Stool occult blood and UA ordered. Qualifiers: Anemia type: other cause Other causes of anemia: acute posthemorrhagic Qualified Code(s): D62 - Acute posthemorrhagic anemia (4) Shortness of breath Current Visit: Yes Status: Acute Assessment and plan: Acute shortness of breath, dyspnea on exertion, dyspnea rest. Onset after total knee replacement 12/31/17. Patient with COPD, HCHP. Continue albuterol oral inhaler, duo nebs, Symbicort, Levaquin IV, Zosyn IV. 02 as needed to maintain 02 sats > 92% (5) Cough Current Visit: Yes Status: Acute Assessment and plan: Patient reports acute cough, states it is nonproductive. Sputum culture is ordered and pending. Guaifenesin 600 mg by mouth twice a day when necessary. (6) HCAP (healthcare-associated pneumonia) Current Visit: Yes Status: Acute Assessment and plan: Pt reports dyspnea since surgery on 12/31. Pt with wheezing heard in anterior lung sawant, diminished in posterior. Pt still requiring supplemental 02. Continue IV Levaquin, IV Zosyn, IV vancomycin pharmacy to dose Continue O2 via nasal cannula, titrate as needed to maintain sats greater than 92% Duo nebs scheduled every 4 hours Mucinex 600 mg by mouth twice a day for cough. labs, vital signs, patient condition. (7) COPD (chronic obstructive pulmonary disease) Current Visit: Yes Status: Chronic Assessment and plan: Chronic. Plan as above. Qualifiers: COPD type: unspecified COPD Qualified Code(s): J44.9 - Chronic obstructive pulmonary disease, unspecified (8) HTN (hypertension) Current Visit: Yes Status: Chronic Assessment and plan: Chronic. Continue home medications. Monitor vitals per admission order. Qualifiers: Hypertension type: essential hypertension Qualified Code(s): I10 - Essential (primary) hypertension (9) DVT prophylaxis Current Visit: Yes Status: Acute Assessment and plan: Heparin SQ q8h (10) Generalized weakness Current Visit: Yes Status: Acute Assessment and plan: PT/OT recommend SNF after discharge. ER SAP PP CONSULTANT started process for pt to go to [facility] after he is medically stable. (11) Elevated d-dimer Current Visit: Yes Status: Acute Assessment and plan: Elevated on admission. Bilateral lower extremity Dopplers negative for DVT, chest CTA negative for PE. (12) Hyponatremia Current Visit: Yes Status: Resolved Assessment and plan: Resolved. Monitor labs. (13) Acute respiratory failure Current Visit: Yes Status: Acute Assessment and plan: Secondary to HCHP and exacerbation of COPD. Patient is requiring supplemental oxygen to maintain his sats greater than 92%. Titrate as needed. Pt does not use 02 at home prior to admission. Qualifiers: Respiratory failure complication: unspecified whether with hypoxia or hypercapnia Qualified Code(s): J96.00 - Acute respiratory failure, unspecified whether with hypoxia or hypercapnia - Time Spent With Patient Total time spent is greater than 50% in coordination of care (as documented) at patient's floor/unit and/or counseling patient: less than 15 minutes - Subjective Interval history: Patient was seen and assessed at bedside at 10:15 AM. He is obviously shortness of breath at rest, not worse than yesterday. He denies any chest pain , does report intermittent nausea. He denies any headache, vomiting, diarrhea. He denies abdominal pain, chest pain, diaphoresis, headache, vision changes. - Constitutional Vitals: Temp Pulse Resp BP Pulse Ox 98.2 F 98 15 125/74 95 01/20/18 15:33 01/20/18 15:33 01/20/18 15:33 01/20/18 15:33 01/20/18 15:33 General appearance: Present: cooperative, mild distress (SOB and weakness), A&O X 3, pleasant, answers questions appropriately - Head Head exam: Present: atraumatic, normal inspection, normocephalic - Eye Eye exam: Present: conjuntiva pink, sclera anicteric - Neck Neck exam general surgery: Present: supple, trachea midline. Absent: lymphadenopathy - Respiratory Respiratory exam: Present: CTAB, respiratory distress. Absent: accessory muscle use, rales, rhonchi, wheezes Additional comments: Mild respiratory distress - Cardiovascular Cardiovascular exam: Present: RRR, +S1, +S2. Absent: diastolic murmur, gallop, rubs, systolic murmur - GI/Abdominal GI/Abdominal exam: Present: normal bowel sounds, soft. Absent: distended, hepatomegaly, tenderness - Extremities Exam Extremities exam: Present: normal capillary refill, normal inspection, warm, radial pulses palpable and symmetrical. Absent: calf tenderness, cyanotic, pedal edema, tenderness - Neurological Exam Neurological exam: Present: alert, oriented X3, no focal deficits. Absent: facial droop, speech deficit - Skin Skin exam: Present: dry, intact, normal color, warm. Absent: rash Internal Medicine: Result - Labs CBC & Chem 7: 01/20/18 03:38 01/20/18 03:38 Labs: Short CBC 01/20/18 Range/Units 03:38 WBC 6.2 (4.3-11.1) K/mcL Hgb 10.1 L (12.9-16.9) g/dL Hct 31.2 L (37.5-50.1) % Plt Count 391 (140-400) K/mcL Neutrophils # 4.2 (1.6-8.9) K/mcL BMP 01/20/18 03:38 Sodium 139 Potassium 3.8 Chloride 107 Carbon Dioxide 23 BUN 10 Creatinine 1.09 Glucose 117 H Calcium 8.6 Liver Function 01/20/18 Range/Units 03:38 Total Bilirubin 0.4 (0.3-1.0) mg/dL AST 18 (13-39) Units/L ALT 13 (7-52) Units/L Alkaline Phosphatase 64 (34-104) Units/L Albumin 3.1 L (3.5-5.7) g/dL - ABG Interpretation ABG results: PT/INR, D-dimer PT 15.6 Seconds (9.4-12.1) H 01/19/18 03:10 D-Dimer 5013 ng/mLFEU (0-500) H 01/18/18 11:24 Consult Discharge Plan - Plan Referrals: Sb Mckinney MD [Primary Care Provider] - 01/21/18 9:45 am
[2018-01-20] MEDS: Levofloxacin 750 MG/150 ML 750 MG/150 ML BAG IVPB SCH (17:21)
[2018-01-20 19:15] LABS: Bilirubin,Urine Negative (Negative); Blood,Urine Negative (Negative); Clarity,Urine Clear (Clear); Color,Urine Yellow (Yellow); Glucose,Urine (UA) Normal (Normal); Ketones,Urine Negative (Negative); Leukocyte Esterase,Urine Negative (Negative); Nitrite,Urine Negative (Negative); PH,Urine 6.5 pH Units (5.0-8.0); Protein,Urine Negative (Neg-Trace); Specific Gravity,Urine 1.015 (1.010-1.025); Urobilinogen,Urine Normal (Normal)
[2018-01-20 21:36] LABS: Estimated Average Glucose 108 mg/dl; Hemoglobin A1C 5.4 %
[2018-01-21] MEDS: *HR* HYDROcodone/Acet 5/325 mg TABLET PO PRN ×4 (03:00→23:42)
[2018-01-21] MEDS: Ipratropium/Albuterol Neb 3 ML IH SCH ×6 (03:19→23:32)
[2018-01-21] MEDS: Piperacillin/Tazobactam 3.375 GM in 0.9 % Sodium Chloride Mini Bag 100 ML IVPB SCH ×3 (03:30→20:00)
[2018-01-21 06:25] LABS: Basophils # 0.1 K/mcL (0.0-0.2); Eosinophils # 0.5 K/mcL (0.0-0.6); Eosinophils % 7.3 %; Hematocrit 32.7 % (37.5-50.1); Hemoglobin 10.6 g/dL (12.9-16.9); Immature Granulocytes % 1.3 % (0-4); Lymphocytes # 0.9 K/mcL (0.6-4.6); Lymphocytes % 13.4 %; Mean Corpuscular HGB Conc 32.4 g/dL (31.6-35.5); Mean Corpuscular Hemoglobin 29.1 pg (28.0-33.3); Mean Corpuscular Volume 89.8 fL (83.0-100.0); Mean Platelet Volume 9.2 fL (9.4-12.4); Monocytes # 0.4 K/mcL (0.0-1.3); Monocytes % 6.2 %; Neutrophils # 4.9 K/mcL (1.6-8.9); Platelet Count 374 K/mcL (140-400); Red Blood Count 3.64 M/mcL (4.19-5.50); Red Cell Distribution Width 13.5 % (11.5-14.5); Segmented Neutrophils % 70.8 %
[2018-01-21 06:43] LABS: Alanine Aminotransferase 18 Units/L (7-52); Albumin 3.1 g/dL (3.5-5.7); Alkaline Phosphatase 64 Units/L (34-104); Aspartate Amino Transferase 26 Units/L (13-39); BUN/Creatinine Ratio 8 (6-26); Bilirubin,Total 0.4 mg/dL (0.3-1.0); Blood Urea Nitrogen 9 mg/dL (8-23); Calcium 8.6 mg/dL (8.6-10.3); Carbon Dioxide 24 mEq/L (23-29); Chloride 109 mEq/L (98-107); Glucose 106 mg/dL (70-105); Osmolality,Calculated 285 (280-300); Potassium 3.9 mEq/L (3.5-5.1); Sodium 138 mEq/L (136-145); Total Protein 6.1 g/dL (6.4-8.9); eGFR For African Americans > 60 (> 60); eGFR For Non-African Americans > 60 (> 60)
[2018-01-21] MEDS: Budesonide/Formoterol 160/4.5 MDI IH SCH ×2 (07:30→19:39)
[2018-01-21] MEDS: hydroCHLOROthiazide 25 MG TABLET PO SCH (08:22)
[2018-01-21] MEDS: Finasteride 5 MG TABLET PO SCH (08:22)
[2018-01-21] MEDS: Ascorbic Acid 500 MG TABLET PO SCH (08:22)
[2018-01-21] MEDS: Cyanocobalamin (B-12) 1,000 MCG TABLET PO SCH (08:22)
[2018-01-21] MEDS: Multivit/Ca/Min/Fe/FA 1 TAB TABLET PO SCH (08:22)
[2018-01-21] MEDS: *HR* Heparin 5,000 UNIT/ML VIAL SQ SCH ×3 (08:23→23:42)
[2018-01-21] MEDS: Aspirin Enteric Coated 325 MG Tablet PO SCH (08:23)
[2018-01-21] MEDS: Saline Nasal Spray 44 ML BOTTLE NS SCH ×4 (08:37→20:02)
[2018-01-21] MEDS: 0.9 % Sodium Chloride 1,000 ML IVC SCH (11:50)
[2018-01-21] MEDS: Levofloxacin 750 MG/150 ML 750 MG/150 ML BAG IVPB SCH (16:46)
--- NOTE | 2018-01-21 18:10 | Internal Med Progress Note ---
Date of Encounter: 01/21/18 Time of Encounter: 10:50 - Assessment and plan (1) Status post total knee replacement, left Current Visit: Yes Status: Acute Assessment and plan: S/P total knee 12/31. Incision looks good, well approximated without redness or drainage. Dressing is dry and intact. Pt reports that today is the first time that he has been able to get out of bed and sit in the chair for longer than 5 minutes. Pt will go to [facility] on discharge for rehab. (2) GERD (gastroesophageal reflux disease) Current Visit: Yes Status: Chronic Assessment and plan: Chronic. Continue PPI. Qualifiers: Esophagitis presence: esophagitis presence not specified Qualified Code(s) : K21.9 - Gastro-esophageal reflux disease without esophagitis (3) Anemia Current Visit: Yes Status: Chronic Assessment and plan: Patient appears to have anemia since surgery in December,. Hgb 10.6 today, decreased from admission, but has remained stable. Patient denies any hematuria, hematochezia, melena. Urine negative for blood, stool occult blood positive. Continue to monitor and trend H&H Qualifiers: Anemia type: other cause Other causes of anemia: acute posthemorrhagic Qualified Code(s): D62 - Acute posthemorrhagic anemia (4) Shortness of breath Current Visit: Yes Status: Acute Assessment and plan: Acute shortness of breath, dyspnea on exertion, dyspnea rest. Onset after total knee replacement 12/31/17. Patient with COPD, HCHP. Improved today. No conversational dyspnea or dyspnea at rest. Continue albuterol oral inhaler, duo nebs, Symbicort, Levaquin IV, Zosyn IV. 02 as needed to maintain 02 sats > 92% (5) Cough Current Visit: Yes Status: Acute Assessment and plan: Guaifenesin 600 mg by mouth twice a day when necessary. (6) HCAP (healthcare-associated pneumonia) Current Visit: Yes Status: Acute Assessment and plan: Pt reports dyspnea since surgery on 12/31. Improved. Pt on 2L 02 via n/c. Continue IV Levaquin, IV Zosyn. Vanco stopped after 3 doses. Continue O2 via nasal cannula, titrate as needed to maintain sats greater than 92% Duo nebs scheduled every 4 hours Mucinex 600 mg by mouth twice a day for cough. (7) COPD (chronic obstructive pulmonary disease) Current Visit: Yes Status: Chronic Assessment and plan: Chronic. Plan as above. Qualifiers: COPD type: unspecified COPD Qualified Code(s): J44.9 - Chronic obstructive pulmonary disease, unspecified (8) HTN (hypertension) Current Visit: Yes Status: Chronic Assessment and plan: Chronic. Continue home medications. Well controlled. Qualifiers: Hypertension type: essential hypertension Qualified Code(s): I10 - Essential (primary) hypertension (9) DVT prophylaxis Current Visit: Yes Status: Acute Assessment and plan: Heparin SQ TID. (10) Generalized weakness Current Visit: Yes Status: Acute Assessment and plan: PT/OT recommend SNF after discharge. ER [employer]IST started process for pt to go to [facility] after he is medically stable. Monitor H and H overnight after positive stool occult blood. (11) Elevated d-dimer Current Visit: Yes Status: Resolved (12) Hyponatremia Current Visit: Yes Status: Resolved Assessment and plan: Resolved. (13) Acute respiratory failure Current Visit: Yes Status: Acute Assessment and plan: Continue to 2 L via nasal canula, titrate as needed to maintain sats greater than 92%. Qualifiers: Respiratory failure complication: unspecified whether with hypoxia or hypercapnia Qualified Code(s): J96.00 - Acute respiratory failure, unspecified whether with hypoxia or hypercapnia - Time Spent With Patient Total time spent is greater than 50% in coordination of care (as documented) at patient's floor/unit and/or counseling patient: less than 15 minutes - Subjective Interval history: Patient was seen and assessed at bedside at 10:50 AM. He significantly better today. No conversational dyspnea or dyspnea at rest. He denies any chest pain. He denies any headache, vomiting, diarrhea. He denies abdominal pain, chest pain, diaphoresis, headache, vision changes. - Constitutional Vitals: Temp Pulse Resp BP Pulse Ox 97.8 F 70 16 174/71 96 01/21/18 11:40 01/21/18 11:40 01/21/18 15:53 01/21/18 11:40 01/21/18 15:53 General appearance: Present: cooperative, mild distress (SOB and weakness), A&O X 3, pleasant, no acute distress, answers questions appropriately - Head Head exam: Present: atraumatic, normal inspection, normocephalic - Eye Eye exam: Present: normal appearance, conjuntiva pink, sclera anicteric - Neck Neck exam general surgery: Present: normal inspection, supple, trachea midline. Absent: lymphadenopathy, tenderness - Respiratory Respiratory exam: Present: CTAB. Absent: accessory muscle use, chest wall tenderness, rales, respiratory distress, rhonchi, wheezes - Cardiovascular Cardiovascular exam: Present: RRR, +S1, +S2. Absent: diastolic murmur, gallop, rubs, systolic murmur - GI/Abdominal GI/Abdominal exam: Present: normal bowel sounds, soft. Absent: distended, hepatomegaly, tenderness - Extremities Exam Extremities exam: Present: normal capillary refill, normal inspection, warm, radial pulses palpable and symmetrical. Absent: calf tenderness, cyanotic, pedal edema - Neurological Exam Neurological exam: Present: alert, oriented X3, no focal deficits. Absent: facial droop, speech deficit - Skin Skin exam: Present: dry, intact, normal color, warm. Absent: rash Internal Medicine: Result - Labs CBC & Chem 7: 01/21/18 05:53 01/21/18 05:53 Labs: Short CBC 01/21/18 Range/Units 05:53 WBC 7.0 (4.3-11.1) K/mcL Hgb 10.6 L (12.9-16.9) g/dL Hct 32.7 L (37.5-50.1) % Plt Count 374 (140-400) K/mcL Neutrophils # 4.9 (1.6-8.9) K/mcL BMP 01/21/18 05:53 Sodium 138 Potassium 3.9 Chloride 109 H Carbon Dioxide 24 BUN 9 Creatinine 1.17 Glucose 106 H Calcium 8.6 Liver Function 01/21/18 Range/Units 05:53 Total Bilirubin 0.4 (0.3-1.0) mg/dL AST 26 (13-39) Units/L ALT 18 (7-52) Units/L Alkaline Phosphatase 64 (34-104) Units/L Albumin 3.1 L (3.5-5.7) g/dL Urine 01/20/18 Range/Units 19:01 Urine Color Yellow (Yellow) Urine Clarity Clear (Clear) Urine pH 6.5 (5.0-8.0) pH Units Ur Specific [place] 1.015 (1.010-1.025) Urine Protein Negative (Neg-Trace) mg/dL Urine Glucose (UA) Normal (Normal) mg/dL - ABG Interpretation ABG results: PT/INR, D-dimer PT 15.6 Seconds (9.4-12.1) H 01/19/18 03:10 D-Dimer 5013 ng/mLFEU (0-500) H 01/18/18 11:24 Consult Discharge Plan - Plan Referrals: Sb Mckinney MD [Primary Care Provider] - 01/21/18 9:45 am
[2018-01-22] MEDS: 0.9 % Sodium Chloride 1,000 ML IVC SCH ×3 (01:54→15:15)
[2018-01-22] MEDS: Piperacillin/Tazobactam 3.375 GM in 0.9 % Sodium Chloride Mini Bag 100 ML IVPB SCH ×3 (03:01→19:55)
[2018-01-22 03:32] LABS: Basophils # 0.1 K/mcL (0.0-0.2); Basophils % 0.7 %; Eosinophils # 0.5 K/mcL (0.0-0.6); Eosinophils % 6.7 %; Hematocrit 33.3 % (37.5-50.1); Hemoglobin 10.9 g/dL (12.9-16.9); Immature Granulocytes % 1.3 % (0-4); Lymphocytes # 0.9 K/mcL (0.6-4.6); Lymphocytes % 13.4 %; Mean Corpuscular HGB Conc 32.7 g/dL (31.6-35.5); Mean Corpuscular Hemoglobin 29.1 pg (28.0-33.3); Mean Corpuscular Volume 88.8 fL (83.0-100.0); Mean Platelet Volume 8.9 fL (9.4-12.4); Monocytes # 0.5 K/mcL (0.0-1.3); Monocytes % 6.8 %; Platelet Count 313 K/mcL (140-400); Red Blood Count 3.75 M/mcL (4.19-5.50); Red Cell Distribution Width 13.8 % (11.5-14.5); Segmented Neutrophils % 71.1 %
[2018-01-22] MEDS: Ipratropium/Albuterol Neb 3 ML IH SCH ×5 (03:40→19:46)
[2018-01-22 03:55] LABS: Alanine Aminotransferase 30 Units/L (7-52); Albumin 3.2 g/dL (3.5-5.7); Albumin/Globulin Ratio 1.1 (1.1-2.2); Alkaline Phosphatase 65 Units/L (34-104); Aspartate Amino Transferase 42 Units/L (13-39); BUN/Creatinine Ratio 7 (6-26); Bilirubin,Total 0.4 mg/dL (0.3-1.0); Blood Urea Nitrogen 8 mg/dL (8-23); Calcium 8.6 mg/dL (8.6-10.3); Carbon Dioxide 23 mEq/L (23-29); Chloride 108 mEq/L (98-107); Globulin 2.9 g/dL (2.4-3.5); Glucose 112 mg/dL (70-105); Osmolality,Calculated 285 (280-300); Potassium 3.8 mEq/L (3.5-5.1); Sodium 138 mEq/L (136-145); Total Protein 6.1 g/dL (6.4-8.9); eGFR For African Americans > 60 (> 60); eGFR For Non-African Americans > 60 (> 60)
[2018-01-22] MEDS: Budesonide/Formoterol 160/4.5 MDI IH SCH ×2 (07:32→19:46)
[2018-01-22] MEDS ORDERED: Aminoglycoside Consult 1 EACH MC ONE (07:49)
[2018-01-22] MEDS: hydroCHLOROthiazide 25 MG TABLET PO SCH (08:04)
[2018-01-22] MEDS: Finasteride 5 MG TABLET PO SCH (08:05)
[2018-01-22] MEDS: Multivit/Ca/Min/Fe/FA 1 TAB TABLET PO SCH (08:05)
[2018-01-22] MEDS: Cyanocobalamin (B-12) 1,000 MCG TABLET PO SCH (08:05)
[2018-01-22] MEDS: Ascorbic Acid 500 MG TABLET PO SCH (08:05)
[2018-01-22] MEDS: Saline Nasal Spray 44 ML BOTTLE NS SCH ×4 (08:06→20:01)
--- NOTE | 2018-01-22 08:57 | Electrocardiograph Report ---
[place] [address] Test Date: 2018-01-22 Pat Name: Kyler Paniagua Department: 113 Room: 3B16 Gender: M Cap Inspector: : [id number] Requested By: Leonel Santiago MD Order Number: [id number] Reading MD: Georgina Booker Measurements Intervals [place] Rate: 100 P: MT: 0 QRS: -62 QRSD: 170 T: -23 QT: 405 QTc: 462 Interpretive Statements ATRIAL FIBRILLATION WITH RAPID VENTRICULAR RESPONSE WITH ABERRANT CONDUCTION OR VENTRICULAR PREMATURE COMPLEXES RIGHT BUNDLE BRANCH BLOCK LEFT ANTERIOR FASCICULAR BLOCK Electronically Signed On 01-22-2018 8:56:06 EDT by Georgina Booker
[2018-01-22] MEDS: *HR* HYDROcodone/Acet 5/325 mg TABLET PO PRN ×3 (11:37→23:14)
--- NOTE | 2018-01-22 13:51 | Internal Med Progress Note ---
Date of Encounter: 01/22/18 Time of Encounter: 13:27 - Assessment and plan (1) Anemia Current Visit: Yes Status: Chronic Assessment and plan: baseline Hgb appears to be between 14 and 15. Hgb dropped to 9.8 on 01/14/18. Suspect component of postoperative blood loss with recent knee surgery. Occult stool positive. Stop ASA/heparin. IV PPI, GI consult. Qualifiers: Anemia type: other cause Other causes of anemia: acute posthemorrhagic Qualified Code(s): D62 - Acute posthemorrhagic anemia (2) Status post total knee replacement, left Current Visit: Yes Status: Acute Assessment and plan: S/P total knee 12/31/17. SNF at discharge (3) GERD (gastroesophageal reflux disease) Current Visit: Yes Status: Chronic Assessment and plan: Chronic. Continue PPI. Qualifiers: Esophagitis presence: esophagitis presence not specified Qualified Code(s) : K21.9 - Gastro-esophageal reflux disease without esophagitis (4) HCAP (healthcare-associated pneumonia) Current Visit: Yes Status: Acute Assessment and plan: Symptomatic with SOB and cough. Continue IV Levaquin, IV Zosyn. Vanco stopped after 3 doses. (5) COPD (chronic obstructive pulmonary disease) Current Visit: Yes Status: Chronic Assessment and plan: Chronic. Plan as above. Qualifiers: COPD type: unspecified COPD Qualified Code(s): J44.9 - Chronic obstructive pulmonary disease, unspecified (6) HTN (hypertension) Current Visit: Yes Status: Chronic Assessment and plan: Chronic. Continue home medications. Well controlled. Qualifiers: Hypertension type: essential hypertension Qualified Code(s): I10 - Essential (primary) hypertension (7) Generalized weakness Current Visit: Yes Status: Acute Assessment and plan: PT/OT recommend SNF after discharge. ER SANDFILL OPERATOR SURFACE started process for pt to go to [facility] after he is medically stable. Monitor H and H overnight after positive stool occult blood. (8) Elevated d-dimer Current Visit: Yes Status: Resolved Assessment and plan: Elevated on admission. Bilateral lower extremity Dopplers negative for DVT, chest CTA negative for PE. (9) Acute respiratory failure Current Visit: Yes Status: Acute Assessment and plan: Continue to 2 L via nasal canula, titrate as needed to maintain sats greater than 92%. Qualifiers: Respiratory failure complication: unspecified whether with hypoxia or hypercapnia Qualified Code(s): J96.00 - Acute respiratory failure, unspecified whether with hypoxia or hypercapnia (10) DVT prophylaxis Current Visit: Yes Status: Acute Assessment and plan: SCD - Time Spent With Patient Total time spent is greater than 50% in coordination of care (as documented) at patient's floor/unit and/or counseling patient: - Subjective Interval history: Seen and bedside. Patient is new to me, information obtained from chart review and patient report. Says he had a rough night is not feeling well this morning. Feels weak and tired. No chest pain or shortness of breath. No palpitations. Denies previous history of A. fib. No active bleeding. - Constitutional Vitals: Temp Pulse Resp BP Pulse Ox 98.0 F 69 16 125/75 96 01/22/18 10:42 01/22/18 10:42 01/22/18 10:42 01/22/18 10:42 01/22/18 10:42 General appearance: Present: cooperative, A&O X 3, pleasant, no acute distress, answers questions appropriately - Head Head exam: Present: atraumatic, normocephalic - Eye Eye exam: Present: PERRL, conjuntiva pink, sclera anicteric Pupils: Present: PERRL - Neck Neck exam general surgery: Present: supple, trachea midline. Absent: lymphadenopathy - Respiratory Respiratory exam: Present: CTAB. Absent: accessory muscle use, rales, rhonchi, wheezes - Cardiovascular Cardiovascular exam: Present: RRR, +S1, +S2. Absent: diastolic murmur, gallop, rubs, systolic murmur - GI/Abdominal GI/Abdominal exam: Present: normal bowel sounds, soft, no peritoneal signs. Absent: distended, tenderness - Extremities Exam Extremities exam: Present: warm, radial pulses palpable and symmetrical. Absent : calf tenderness, cyanotic, pedal edema - Neurological Exam Neurological exam: Present: CN II-XII intact, oriented X3, no focal deficits. Absent: pronater drift, facial droop, speech deficit - Skin Skin exam: Present: dry, intact Internal Medicine: Result - Labs CBC & Chem 7: 01/22/18 03:22 01/22/18 03:22 Labs: Short CBC 01/22/18 Range/Units 03:22 WBC 7.0 (4.3-11.1) K/mcL Hgb 10.9 L (12.9-16.9) g/dL Hct 33.3 L (37.5-50.1) % Plt Count 313 (140-400) K/mcL Neutrophils # 5.0 (1.6-8.9) K/mcL BMP 01/22/18 03:22 Sodium 138 Potassium 3.8 Chloride 108 H Carbon Dioxide 23 BUN 8 Creatinine 1.14 Glucose 112 H Calcium 8.6 Cardiac Enzymes 01/22/18 01/22/18 Range/Units 03:22 09:13 Troponin I < 0.03 < 0.03 (< 0.04) ng/mL Liver Function 01/22/18 Range/Units 03:22 Total Bilirubin 0.4 (0.3-1.0) mg/dL AST 42 H (13-39) Units/L ALT 30 (7-52) Units/L Alkaline Phosphatase 65 (34-104) Units/L Albumin 3.2 L (3.5-5.7) g/dL - ABG Interpretation ABG results: PT/INR, D-dimer PT 15.6 Seconds (9.4-12.1) H 01/19/18 03:10 D-Dimer 5013 ng/mLFEU (0-500) H 01/18/18 11:24 Consult Discharge Plan - Plan Referrals: Sb Mckinney MD [Primary Care Provider] - 01/21/18 9:45 am
--- NOTE | 2018-01-22 14:00 | Cardiology Consult Note ---
<Jacklyn Waters - Last Filed: 01/22/18 14:18> Date of Encounter: 01/22/18 Time of Encounter: 13:30 Assessment and Plan (1) HCAP (healthcare-associated pneumonia) Current Visit: Yes Status: Acute Per cardiology: -Admitted with pneumonia after knee surgery. -Management per primary service. (2) Atrial fibrillation with RVR Current Visit: Yes Status: Acute Per cardiology: -A.fib RVR noted overnight, no previous history. -Was started on beta margaret, now rate controlled. -[id number] score 3 (age, HTN). Not on anticoagulation due to anemia, stool OB positive. Patient educated on increased risk of CVA/embolic event. -Average HR previous 12 hours noted to be 93. afib. -TTE 12/2017 with LVEF 60%, mild diastolic dysfunction, bioprosthetic AV with normal function by doppler, mild TR, borderline PH, no segmental wall motion abnormalities. -Agree with beta margaret. -Appreciate GI evaluation to determine anticoagulation. (3) S/P AVR (aortic valve replacement) Current Visit: Yes Status: Acute Per cardiology: -History of rheumatic heart disease. -S/p bioprosthetic AV replacement. -TTE 12/2017 with normal function per doppler. (4) Anemia Current Visit: Yes Status: Chronic Per cardiology: -Hemglobin 10.9. -Baseline hemoglobin prior to surgery 14-15. -Stool OB postive. -Mangement per primary and GI services. Qualifiers: Anemia type: other cause Other causes of anemia: acute posthemorrhagic Qualified Code(s): D62 - Acute posthemorrhagic anemia Discussion w patient/family: The assessment and plan as outlined above was discussed with the patient who expressed understanding and agreement. All questions were answered. Thank you for involving us in the care of your patient. Please call with any questions. Discussed and reviewed with . History of Present Illness Consult date: 01/22/18 Requesting physician: Katheryn Gage Consult reason: new a.fib Chief complaint: shortness of breath History of present illness: Mr. Paniagua is a 77 year old male with a relevant past medical history of asthma , HTN, BPH, GERD, COPD, peripheral neuropathy, bioprosthetic aortic valve replacement, recent knee surgery. Patient presented to [facility] with complaints of increased shortness of breath. Patient has been diagnosed with pneumonia. Cardiology has been consulted for new a.fib. Patient reports fluttering last night, denies today. Reports shortness of breath is "ok" today. Past Med Surg Social Fam HX - Past Medical History Attestation: Yes The following information was validated with the patient. Source: patient, old records reviewed Medical history: asthma, COPD, GERD, hypertension, valvular heart disease Psychiatric history: no psych history - Past Surgical History Surgical History: cholecystectomy, heart valve replacement (Bovine aortic valve replacement 2006. Has never been on anticoagulants for this reason.) - Social History Smoking Status: Never smoker Smokeless Tobacco Status: No Alcohol use: none Drug use: none - Family History Father Race: Family Member Ethnicity: Non- Living Status: Age at : 78 Cause of : Alzheimer's disease Hx Family Neurologic Disorders: Yes (Alzheimer's disease) Mother Race: Family Member Ethnicity: Non- Living Status: Age at : 92 Cause of : Old age Brother Race: Family Member Ethnicity: Non- Living Status: Still Living Hx Family Musculoskeletal Disorders: Yes Sister Race: Family Member Ethnicity: Non- Living Status: Still Living Hx Family Musculoskeletal Disorders: Yes Medications and Allergies Albuterol Sulfate [Ventolin Hfa] 2 puff IH Q4H PRN 06/14/17 [History] Ascorbic Acid [Vitamin C] 1,000 mg PO DAILY 06/14/17 [History] Budesonide/Formoterol 160/4.5 [Symbicort 160/4.5] 2 puff IH BIDR 06/14/17 [ History] Calcium Carbonate [Calcium] 600 mg PO DAILY 06/14/17 [History] Cyanocobalamin (Vitamin B-12) [Vitamin B-12] 1,000 mcg SL DAILY 06/14/17 [ History] Finasteride [Proscar] 5 mg PO DAILY 06/14/17 [History] Garlic [Odor Free Garlic] 100 mg PO DAILY 06/14/17 [History] Irbesartan [Avapro] 300 mg PO DAILY 06/14/17 [History] Multivitamin [One Daily Multivitamin] 1 each PO DAILY 06/14/17 [History] Pantoprazole Sodium 40 mg PO DAILY 06/14/17 [History] Sertraline [Zoloft] 100 mg PO DAILY 06/14/17 [History] Tamsulosin [Flomax] 0.8 mg PO DAILY 06/14/17 [History] Bethanechol [Urecholine] 12.5 mg PO TID tablet 01/15/18 [Rx] Docusate [Colace] 100 mg PO BID capsule 01/15/18 [Rx] Polyethylene Glycol 3350 [MiraLAX] 17 gm PO DAILY powd.pack 01/15/18 [Rx] Saline Nasal [place] [Tatum Nasal [place]] 2 spray NS QID bottle 01/15/18 [Rx] Acetaminophen [Tylenol] 650 mg PO Q6HR 01/18/18 [History] Aspirin Enteric Coated [Aspirin EC] 325 mg PO DAILY 01/18/18 [History] 3 Allergy/AdvReac Type Severity Reaction Status Date / Time No Known Allergies Allergy Verified 01/18/18 10:56 All Systems Review: The remainder of the systems were reviewed and are negative - Cardiovascular Cardiovascular: as per HPI, dyspnea on exertion, palpitations Physical Examination Vital Signs, Last 4 Hours Temp Pulse Resp BP Pulse Ox 01/22/18 10:42 98.0 F 69 16 125/75 96 General: Conversant, No Apparent Distress HEENT: Atraumatic, Normocephaly, Mucus Membranes Moist Neck: No JVD, Normal carotid pulses Cardiac: Normal S1 and S2, No Murmur, Other (Irregularly irregular ) Lungs: Normal Breath Sounds, No Wheeze, Rales, Rhonchi Neuro: Alert and responsive, No focal deficits noted Abdomen: Soft, Non-Tender Skin: No rashes noted on visualized skin Musculoskeletal: No Chest Wall Tenderness Extremities: No Clubbing, No Cyanosis, No Edema, Normal Pulses Results 01/22/18 03:22 01/22/18 03:22 Lab Results Active Medications Acetaminophen (Tylenol) 650 mg PO Q6HR PRN PRN Reason: Mild Pain/Fever Stop: 07/20/18 18:25 Last Admin: 01/19/18 16:20 Dose: 650 mg Hydrocodone Bitart/Acetaminophen ([place] 5-325 Mg) 1 tab PO Q6H PRN PRN Reason: Moderate Pain Stop: 07/21/18 19:57 Last Admin: 01/22/18 11:37 Dose: 1 tab Albuterol Sulfate (Albuterol Inhaler) 2 puff IH Q4H PRN PRN Reason: Shortness Of Breath Stop: 07/20/18 18:36 Albuterol/Ipratropium (Duoneb) 3 ml IH [id number] [facility] Stop: 07/20/18 20:01 Last Admin: 01/22/18 11:18 Dose: Not Given Ascorbic Acid (Vitamin C) 1,000 mg PO DAILY ANA Stop: 07/21/18 09:01 Last Admin: 01/22/18 08:05 Dose: 1,000 mg Bethanechol Chloride (Urecholine) 12.5 mg PO TID ANA Stop: 07/20/18 21:01 Last Admin: 01/22/18 08:05 Dose: 12.5 mg Budesonide/Formoterol Fumarate (Symbicort) 2 puff IH BIDR ANA PRN Reason: Protocol Stop: 07/20/18 22:01 Last Admin: 01/22/18 07:32 Dose: 2 puff Calcium Carbonate (Tums) 1,000 mg PO TID ANA PRN Reason: Protocol Stop: 07/21/18 09:01 Last Admin: 01/22/18 08:04 Dose: 1,000 mg Cyanocobalamin (Vitamin B12) 1,000 mcg PO DAILY ANA Stop: 07/21/18 09:01 Last Admin: 01/22/18 08:05 Dose: 1,000 mcg Docusate Sodium (Colace) 100 mg PO BID ANA PRN Reason: Protocol Stop: 07/20/18 21:01 Last Admin: 01/22/18 08:05 Dose: Not Given Finasteride (Proscar) 5 mg PO DAILY ANA PRN Reason: Protocol Stop: 07/21/18 09:01 Last Admin: 01/22/18 08:05 Dose: 5 mg Guaifenesin (Mucinex) 600 mg PO BID PRN PRN Reason: Congestion Stop: 07/20/18 18:38 Hydrochlorothiazide (Hydrochlorothiazide) 12.5 mg PO DAILY ANA PRN Reason: Protocol Stop: 07/23/18 09:01 Last Admin: 01/22/18 08:04 Dose: 12.5 mg Levofloxacin/Dextrose (Levaquin Premix 750mg/150 Ml) 750 mg in 150 mls @ 100 mls/hr IVPB QPM ANA PRN Reason: Protocol Stop: 07/21/18 18:01 Last Admin: 01/21/18 16:46 Dose: 100 mls/hr Sodium Chloride (0.9 % Sodium Chloride) 1,000 mls @ 75 mls/hr IVC .[id number] [facility] Stop: 07/20/18 18:46 Last Admin: 01/22/18 05:20 Dose: Not Given Piperacillin Sod/Tazobactam (Sod 3.375 gm/ Sodium Chloride) 100 mls @ 25 mls/ hr IVPB Q8H [facility] Stop: 07/22/18 04:01 Last Admin: 01/22/18 11:33 Dose: 25 mls/hr Losartan Potassium (Cozaar) 100 mg PO DAILY [facility] Stop: 07/21/18 09:01 Last Admin: 01/22/18 08:04 Dose: 100 mg Metoprolol Tartrate (Lopressor) 12.5 mg PO BID [facility] Stop: 07/24/18 02:16 Last Admin: 01/22/18 08:06 Dose: 12.5 mg Multivitamins/Calcium (Thera M Plus) 1 tab PO DAILY [facility] Stop: 07/21/18 09:01 Last Admin: 01/22/18 08:05 Dose: 1 tab Naloxone HCl (Narcan) 0.4 mg IVP Q2MIN PRN PRN Reason: SEE COMMENTS Stop: 07/20/18 18:25 Omeprazole (Prilosec) 20 mg PO DAILY@0730 [facility] Stop: 07/21/18 07:31 Last Admin: 01/22/18 08:05 Dose: 20 mg Ondansetron HCl (Zofran) 4 mg IVP Q6HR PRN; Protocol PRN Reason: Nausea And Vomiting Stop: 07/20/18 19:32 Last Admin: 01/19/18 19:54 Dose: 4 mg Oxycodone HCl (Oxycodone Oral Conc) 10 mg SL Q6H PRN; Protocol PRN Reason: Severe Pain Stop: 07/21/18 19:58 Polyethylene Glycol (Miralax) 17 gm PO DAILY [facility] Stop: 07/21/18 09:01 Last Admin: 01/22/18 08:06 Dose: Not Given Sertraline HCl (Zoloft) 100 mg PO DAILY [facility] Stop: 07/21/18 09:01 Last Admin: 01/22/18 08:05 Dose: 100 mg Sodium Chloride (Tatum Nasal [place]) 2 spray NS QID ANA Stop: 07/20/18 21:01 Last Admin: 01/22/18 08:06 Dose: 2 spray Tamsulosin HCl (Flomax) 0.8 mg PO DAILY ANA PRN Reason: Protocol Stop: 07/21/18 09:01 Last Admin: 01/22/18 08:06 Dose: 0.8 mg Laboratory Tests 01/18/18 01/18/18 01/19/18 11:24 20:18 03:10 Hgb Potassium Creatinine Magnesium Troponin I < 0.03 < 0.03 < 0.03 01/19/18 01/22/18 01/22/18 03:10 03:22 03:22 Hgb 10.9 L Potassium 3.8 Creatinine 1.14 Magnesium 2.2 Troponin I 01/22/18 01/22/18 03:22 09:13 Hgb Potassium Creatinine Magnesium Troponin I < 0.03 < 0.03 - Imaging and Cardiology Chest Xray: report reviewed Echo: report reviewed - EKG Interpretation EKG results cardiology: personally reviewed (ECG with a.fib RVR, RBBB, HR 112.) , other (Telemetry reviewed with average HR previous 12 hours noted to be 93, a.fib. PVCs noted.) Consult Discharge Plan - Plan Referrals: Sb Mckinney MD [Primary Care Provider] - 01/21/18 9:45 am <Georgina Booker - Last Filed: 01/22/18 17:43> Date of Encounter: 01/22/18 - Attending Attestation I examined this patient and my medical decision-making was reviewed with the LOW ALTITUDE AIR DEFENSE OFFICER. I agree with the documented findings, disposition and treatment plan as described. Mr. Paniagua known to me from the outpatient setting. He recently underwent an uneventful knee replacement. However, he has been feeling SOB since that time. He was admitted with PNA c/b AFIB RVR which is presumably new. Now rate controlled on BB. Anticoagulation is considered (CHADSVASC 3) but given positive stool occult blood and decline in Hgb we recommend GI evaluation. Aspirin only for now. Recent echo demonstrated normal LVEF with normal functioning bioprosthetic AVR. Assessment and Plan Discussion w patient/family: The assessment and plan as outlined above was discussed with the patient and/or family members who expressed understanding and agreement. All questions were answered. Thank you for involving us in the care of your patient. Please call with any questions. History of Present Illness History of present illness: Mr. Paniagua is a 77 year old male All Systems Review: The remainder of the systems were reviewed and are negative Physical Examination Vital Signs, Last 4 Hours Temp Pulse Resp BP Pulse Ox 01/22/18 15:35 98.2 F 60 16 143/85 97 01/22/18 15:24 16 96 Results 01/22/18 03:22 01/22/18 03:22 Lab Results 01/22/18 01/22/18 01/22/18 03:22 03:22 03:22 WBC 7.0 Hgb 10.9 L Hct 33.3 L Plt Count 313 Sodium 138 Potassium 3.8 Chloride 108 H Carbon Dioxide 23 BUN 8 Creatinine 1.14 Glucose 112 H Calcium 8.6 Total Bilirubin 0.4 AST 42 H ALT 30 Alkaline Phosphatase 65 Troponin I < 0.03 01/22/18 01/22/18 09:13 16:28 WBC Hgb Hct Plt Count Sodium Potassium Chloride Carbon Dioxide BUN Creatinine Glucose Calcium Total Bilirubin AST ALT Alkaline Phosphatase Troponin I < 0.03 < 0.03
[2018-01-22] MEDS: Pantoprazole 40 MG VIAL IVP SCH (16:45)
[2018-01-22] MEDS: Levofloxacin 750 MG/150 ML 750 MG/150 ML BAG IVPB SCH (16:47)
[2018-01-23] MEDS: Ipratropium/Albuterol Neb 3 ML IH SCH ×6 (00:03→19:44)
[2018-01-23] MEDS: Piperacillin/Tazobactam 3.375 GM in 0.9 % Sodium Chloride Mini Bag 100 ML IVPB SCH ×3 (03:35→20:12)
[2018-01-23 04:06] LABS: Basophils % 0.4 %; Eosinophils # 0.3 K/mcL (0.0-0.6); Eosinophils % 4.6 %; Hematocrit 34.1 % (37.5-50.1); Hemoglobin 11.3 g/dL (12.9-16.9); Immature Granulocytes % 0.9 % (0-4); Lymphocytes # 1.1 K/mcL (0.6-4.6); Lymphocytes % 16.3 %; Mean Corpuscular HGB Conc 33.1 g/dL (31.6-35.5); Mean Corpuscular Hemoglobin 29.4 pg (28.0-33.3); Mean Corpuscular Volume 88.8 fL (83.0-100.0); Mean Platelet Volume 8.9 fL (9.4-12.4); Monocytes # 0.5 K/mcL (0.0-1.3); Monocytes % 6.8 %; Neutrophils # 4.8 K/mcL (1.6-8.9); Platelet Count 312 K/mcL (140-400); Red Blood Count 3.84 M/mcL (4.19-5.50)
[2018-01-23 04:27] LABS: Alanine Aminotransferase 31 Units/L (7-52); Albumin 3.1 g/dL (3.5-5.7); Albumin/Globulin Ratio 1.1 (1.1-2.2); Alkaline Phosphatase 63 Units/L (34-104); Aspartate Amino Transferase 33 Units/L (13-39); BUN/Creatinine Ratio 8 (6-26); Bilirubin,Total 0.4 mg/dL (0.3-1.0); Blood Urea Nitrogen 10 mg/dL (8-23); Calcium 8.5 mg/dL (8.6-10.3); Carbon Dioxide 24 mEq/L (23-29); Chloride 109 mEq/L (98-107); Globulin 2.9 g/dL (2.4-3.5); Glucose 105 mg/dL (70-105); Osmolality,Calculated 287 (280-300); Potassium 4.1 mEq/L (3.5-5.1); Sodium 139 mEq/L (136-145); eGFR For African Americans > 60 (> 60); eGFR For Non-African Americans > 60 (> 60)
[2018-01-23] MEDS: 0.9 % Sodium Chloride 1,000 ML IVC SCH ×2 (05:57→16:06)
[2018-01-23] MEDS: *HR* HYDROcodone/Acet 5/325 mg TABLET PO PRN ×2 (06:05→12:32)
[2018-01-23] MEDS: Budesonide/Formoterol 160/4.5 MDI IH SCH ×2 (07:39→19:44)
[2018-01-23] MEDS: Pantoprazole 40 MG VIAL IVP SCH (08:41)
[2018-01-23] MEDS: Cyanocobalamin (B-12) 1,000 MCG TABLET PO SCH (12:23)
[2018-01-23] MEDS: Multivit/Ca/Min/Fe/FA 1 TAB TABLET PO SCH (12:23)
[2018-01-23] MEDS: hydroCHLOROthiazide 25 MG TABLET PO SCH (12:23)
[2018-01-23] MEDS: Aspirin 81 MG TAB.CHEW PO SCH (12:23)
[2018-01-23] MEDS: Ascorbic Acid 500 MG TABLET PO SCH (12:24)
[2018-01-23] MEDS: Finasteride 5 MG TABLET PO SCH (12:25)
[2018-01-23] MEDS: Saline Nasal Spray 44 ML BOTTLE NS SCH ×4 (12:30→20:19)
--- NOTE | 2018-01-23 12:40 | Event Note ---
Date of Encounter: 01/23/18 Time of Encounter: 12:38 - Cardiology Event Note Patient with new a.fib, rate controlled. New anemia noted with stool OB positive. GI consult pending. Will continue to follow peripherally once GI evaluation is complete. Recommend anticoagulation, ok with NOAC, once ok with GI.
--- NOTE | 2018-01-23 16:19 | Internal Med Progress Note ---
Date of Encounter: 01/23/18 Time of Encounter: 16:16 - Assessment and plan (1) Anemia Current Visit: Yes Status: Chronic Assessment and plan: baseline Hgb appears to be between 14 and 15. Hgb dropped to 9.8 on 01/14/18. Suspect component of postoperative blood loss with recent knee surgery. Occult stool positive. No bleeding source identified on colonoscopy/EGD. Continue ASA. Monitor H&H. GI following. HGB 11.3 on 01/23/18 Qualifiers: Anemia type: other cause Other causes of anemia: acute posthemorrhagic Qualified Code(s): D62 - Acute posthemorrhagic anemia (2) Status post total knee replacement, left Current Visit: Yes Status: Acute Assessment and plan: S/P total knee 12/31/17. SNF at discharge (3) GERD (gastroesophageal reflux disease) Current Visit: Yes Status: Chronic Assessment and plan: Chronic. Continue PPI. Qualifiers: Esophagitis presence: esophagitis presence not specified Qualified Code(s) : K21.9 - Gastro-esophageal reflux disease without esophagitis (4) HCAP (healthcare-associated pneumonia) Current Visit: Yes Status: Acute Assessment and plan: Symptomatic with SOB and cough. Continue IV Levaquin, IV Zosyn. Vanco stopped after 3 doses. (5) COPD (chronic obstructive pulmonary disease) Current Visit: Yes Status: Chronic Assessment and plan: Chronic. Plan as above. Qualifiers: COPD type: unspecified COPD Qualified Code(s): J44.9 - Chronic obstructive pulmonary disease, unspecified (6) HTN (hypertension) Current Visit: Yes Status: Chronic Assessment and plan: Chronic. Continue home medications. Well controlled. Qualifiers: Hypertension type: essential hypertension Qualified Code(s): I10 - Essential (primary) hypertension (7) Generalized weakness Current Visit: Yes Status: Acute Assessment and plan: PT/OT recommend SNF after discharge. ER POLL WATCHER started process for pt to go to [facility] after he is medically stable. Monitor H and H overnight after positive stool occult blood. (8) Elevated d-dimer Current Visit: Yes Status: Resolved Assessment and plan: Elevated on admission. Bilateral lower extremity Dopplers negative for DVT, chest CTA negative for PE. (9) Acute respiratory failure Current Visit: Yes Status: Acute Assessment and plan: Continue to 2 L via nasal canula, titrate as needed to maintain sats greater than 92%. Qualifiers: Respiratory failure complication: unspecified whether with hypoxia or hypercapnia Qualified Code(s): J96.00 - Acute respiratory failure, unspecified whether with hypoxia or hypercapnia (10) Gastritis Current Visit: Yes Status: Acute Assessment and plan: 01/23/18 EGD shows Daniel's esophagus, gastroparesis, nonbleeding duodenal ulcer and gastritis. Biopsies of gastritis taken. Continue PPI, Carafate.. GI following Qualifiers: Gastritis type: superficial Chronicity: acute Gastritis bleeding: without bleeding Qualified Code(s): K29.00 - Acute gastritis without bleeding (11) Rectal ulcer Current Visit: Yes Status: Acute Assessment and plan: 01/23/18 colonoscopy with diverticulitis and nonbleeding rectal ulcers; biopsies taken.. Diet per GI recommendations. (12) DVT prophylaxis Current Visit: Yes Status: Acute Assessment and plan: SCD - Time Spent With Patient Total time spent is greater than 50% in coordination of care (as documented) at patient's floor/unit and/or counseling patient: - Subjective Interval history: Seen and bedside; sitting up in bed. Says he slept better last night. Still having palpitations. Complains of a fire burning sensation in the stomach. Denies chest pain, no shortness of breath. No active bleeding. - Constitutional Vitals: Temp Pulse Resp BP Pulse Ox 98.2 F 83 16 124/73 97 01/23/18 15:05 01/23/18 15:05 01/23/18 15:05 01/23/18 15:05 01/23/18 15:05 General appearance: Present: cooperative, A&O X 3, pleasant, no acute distress, answers questions appropriately - Head Head exam: Present: atraumatic, normocephalic - Eye Eye exam: Present: PERRL, conjuntiva pink, sclera anicteric Pupils: Present: PERRL - Neck Neck exam general surgery: Present: supple, trachea midline. Absent: lymphadenopathy - Respiratory Respiratory exam: Present: CTAB. Absent: accessory muscle use, rales, rhonchi, wheezes - Cardiovascular Cardiovascular exam: Present: RRR, +S1, +S2. Absent: diastolic murmur, gallop, rubs, systolic murmur - GI/Abdominal GI/Abdominal exam: Present: normal bowel sounds, soft, no peritoneal signs. Absent: distended, tenderness - Extremities Exam Extremities exam: Present: warm, radial pulses palpable and symmetrical. Absent : calf tenderness, cyanotic, pedal edema - Neurological Exam Neurological exam: Present: CN II-XII intact, oriented X3, no focal deficits. Absent: pronater drift, facial droop, speech deficit - Skin Skin exam: Present: dry, intact Internal Medicine: Result - Labs CBC & Chem 7: 01/23/18 03:51 01/23/18 03:51 Labs: Short CBC 01/23/18 Range/Units 03:51 WBC 6.8 (4.3-11.1) K/mcL Hgb 11.3 L (12.9-16.9) g/dL Hct 34.1 L (37.5-50.1) % Plt Count 312 (140-400) K/mcL Neutrophils # 4.8 (1.6-8.9) K/mcL BMP 01/23/18 03:51 Sodium 139 Potassium 4.1 Chloride 109 H Carbon Dioxide 24 BUN 10 Creatinine 1.18 Glucose 105 Calcium 8.5 L Cardiac Enzymes 01/22/18 Range/Units 16:28 Troponin I < 0.03 (< 0.04) ng/mL Liver Function 01/23/18 Range/Units 03:51 Total Bilirubin 0.4 (0.3-1.0) mg/dL AST 33 (13-39) Units/L ALT 31 (7-52) Units/L Alkaline Phosphatase 63 (34-104) Units/L Albumin 3.1 L (3.5-5.7) g/dL - ABG Interpretation ABG results: PT/INR, D-dimer PT 15.6 Seconds (9.4-12.1) H 01/19/18 03:10 D-Dimer 5013 ng/mLFEU (0-500) H 01/18/18 11:24 Consult Discharge Plan - Plan Referrals: Sb Mckinney MD [Primary Care Provider] - 01/21/18 9:45 am
--- NOTE | 2018-01-23 16:36 | Gastroenterology Consult Note ---
<Samantha Eugene - Last Filed: 01/23/18 16:29> Date of Encounter: 01/23/18 Time of Encounter: 11:30 - Assessment and plan (1) Rectal bleeding Status: Acute Assessment and plan: Will schedule for colonoscopy tomorrow. (2) GERD (gastroesophageal reflux disease) Status: Chronic Assessment and plan: Continue PPI EGD tomorrow. Qualifiers: Esophagitis presence: esophagitis presence not specified Qualified Code(s) : K21.9 - Gastro-esophageal reflux disease without esophagitis (3) Anemia Status: Chronic Assessment and plan: EGD/colon tomorrow, asa and heparin stopped. Qualifiers: Anemia type: other cause Other causes of anemia: acute posthemorrhagic Qualified Code(s): D62 - Acute posthemorrhagic anemia - Time Spent With Patient Total time spent is greater than 50% in coordination of care (as documented) at patient's floor/unit and/or counseling patient: GI History of Present Illness - Data of Consult Patient: new to practice Consult date: 01/23/18 Requesting Physician: Cherie Baird CNP - Consult Narrative Reason for consult: anemia gi bleed History of present illness: Mr. Paniagua is a 77 year old male w/PMH of asthma, COPD, GERD, and HTN presents from the ED with chief complaint of shortness of breath and dyspnea that has been ongoing since total knee replacement of his left knee on December 31. Patient was a Dr. Burnett's office today and sent to ED due to shortness of breath. Patient reports worsening SOB/dyspnea with exertion, cough w/chest discomfort, and generalized weakness. Patient denies history of PE/DVTs. Patient denies recent illness, fever, chills, nausea, vomiting, changes in vision, unusual bleeding, chest pain, palpitations, abdominal pain, diarrhea, constipation, dizziness, lightheadedness, pre-syncope, or syncope. Hgb has dropped from baselin of 14.7 on 12/24 to 10.9 today. Ocult stool was positive. Asa and heparin were stopped and pt was started on IV PPI. He complains of a burning pain in his upper abdomen and states has been ongoing since he was 36 years old. He denies diarrhea he states hea has occasional constipation and takes miralax with relief. He states he started having bloody stools yesterday and was dizzy on his walk back to bed. he denies chest pain. Colonoscopy: 2010 EGD: denies NSAIDS/ASA: Anticoagulants: heparin Past Med Surg Social Fam HX - Past Medical History Medical history: asthma, COPD, GERD, hypertension, valvular heart disease Psychiatric history: no psych history - Past Surgical History Surgical History: cholecystectomy, heart valve replacement ([place] aortic valve replacement 2006. Has never been on anticoagulants for this reason.) - Social History Smoking Status: Never smoker Smokeless Tobacco Status: No Alcohol use: none Drug use: none - Family History Father Race: Family Member Ethnicity: Non- Living Status: Age at : 78 Cause of : Alzheimer's disease Hx Family Neurologic Disorders: Yes (Alzheimer's disease) Mother Race: Family Member Ethnicity: Non- Living Status: Age at : 92 Cause of : Old age Brother Race: Family Member Ethnicity: Non- Living Status: Still Living Hx Family Musculoskeletal Disorders: Yes Sister Race: Family Member Ethnicity: Non- Living Status: Still Living Hx Family Musculoskeletal Disorders: Yes Review of Systems: GI: as per [place] GENERAL: denies fever, has some chills EYES: denies yellow discoloration ENT: denies pain with swallowing or difficulty swallowing CARDIO: denies chest pain, palpitations RESP: Shortness of breath with exertion : denies change in color of urine NEURO: weakness HEME: Denies any bruising MS: joint pain, joint swelling or back pain. DERM: denies rash or itching PSYCH: Denies history of anxiety or depression - Constitutional Vitals: Temp Pulse Resp BP Pulse Ox 98.2 F 83 16 124/73 97 01/23/18 15:05 01/23/18 15:05 01/23/18 15:05 01/23/18 15:05 01/23/18 15:05 Exam: CONSTITUTIONAL:~alert, no acute distress.~HEAD:~normocephalic.~EYES:~no jaundice.~NECK:~no obvious swelling.~HEART:~regular rate and rhythm, no murmurs , mildine chest scar well healed.~LUNGS:~bilateral good air entry.~ABDOMEN:~non distended, soft, tender epigastric area, no masses palpable, no organomegaly.~ RECTAL EXAM:~Deferred.~EXTREMITIES:~no clubbing, cyanosis, trace BLE edema, dressing to left knee intact.~SKIN:~no stigmata of chronic liver disease.~ NEUROLOGIC:~no obvious focal defect.~~~~ Results - Labs CBC & Chem 7: 01/23/18 03:51 01/23/18 03:51 Labs: Last Result Calcium 8.5 mg/dL (8.6-10.3) L 01/23/18 03:51 Troponin I < 0.03 ng/mL (< 0.04) 01/22/18 16:28 Triglycerides 92 mg/dL (< 150) 01/19/18 03:10 Stool Occult Blood Positive (Negative) A 01/21/18 10:21 Entire Visit Hgb 11.3 g/dL (12.9-16.9) L 01/23/18 03:51 Hct 34.1 % (37.5-50.1) L 01/23/18 03:51 PT 15.6 Seconds (9.4-12.1) H 01/19/18 03:10 Total Bilirubin 0.4 mg/dL (0.3-1.0) 01/23/18 03:51 AST 33 Units/L (13-39) 01/23/18 03:51 ALT 31 Units/L (7-52) 01/23/18 03:51 - ABG ABG results: PT/INR, D-dimer PT 15.6 Seconds (9.4-12.1) H 01/19/18 03:10 D-Dimer 5013 ng/mLFEU (0-500) H 01/18/18 11:24 Consult Discharge Plan - Plan Referrals: Sb Mckinney MD [Primary Care Provider] - Prescriptions: levoFLOXacin [Levaquin] 750 mg PO Q48H #6 tablet Rivaroxaban [Xarelto] 20 mg PO QPM #30 tablet Sucralfate [Carafate] 1 gm PO QIDAC #30 tablet <Eugene Cui - Last Filed: 01/30/18 05:39> Date of Encounter: 01/23/18 - Time Spent With Patient Total time spent is greater than 50% in coordination of care (as documented) at patient's floor/unit and/or counseling patient: GI History of Present Illness - Data of Consult Requesting Physician: Cherie Baird CNP - Consult Narrative History of present illness: Mr. Paniagua is a 77 year old male - Constitutional Vitals: Temp Pulse Resp BP Pulse Ox 98.5 F 75 16 150/58 97 01/25/18 10:44 01/25/18 10:44 01/25/18 11:06 01/25/18 11:06 01/25/18 11:06 Results - Labs CBC & Chem 7: 01/25/18 06:44 01/23/18 03:51 Labs: Last Result Calcium 8.5 mg/dL (8.6-10.3) L 01/23/18 03:51 Troponin I < 0.03 ng/mL (< 0.04) 01/22/18 16:28 Triglycerides 92 mg/dL (< 150) 01/19/18 03:10 Stool Occult Blood Positive (Negative) A 01/21/18 10:21 Entire Visit Hgb 11.0 g/dL (12.9-16.9) L 01/25/18 06:44 Hct 34.3 % (37.5-50.1) L 01/25/18 06:44 PT 15.6 Seconds (9.4-12.1) H 01/19/18 03:10 Total Bilirubin 0.4 mg/dL (0.3-1.0) 01/23/18 03:51 AST 33 Units/L (13-39) 01/23/18 03:51 ALT 31 Units/L (7-52) 01/23/18 03:51 - ABG ABG results: PT/INR, D-dimer PT 15.6 Seconds (9.4-12.1) H 01/19/18 03:10 D-Dimer 5013 ng/mLFEU (0-500) H 01/18/18 11:24 - Attending Attestation Rectal bleeding workup in progress. Agree and discussed with team I have personally performed a face to face evaluation on this patient. I have reviewed and agree with the care plan. History and Exam by me shows:
[2018-01-23] MEDS ORDERED: SODIUM CHLORIDE/NAHCO3/KCL/PEG 4,000 ML SOLN.RECON PO ONE (17:00)
[2018-01-23] MEDS: Ondansetron 4 MG/2 ML VIAL IVP PRN (22:00)
[2018-01-24] MEDS: Ipratropium/Albuterol Neb 3 ML IH SCH ×7 (00:27→23:55)
[2018-01-24] MEDS: *HR* HYDROcodone/Acet 5/325 mg TABLET PO PRN ×3 (00:56→21:09)
[2018-01-24] MEDS: Piperacillin/Tazobactam 3.375 GM in 0.9 % Sodium Chloride Mini Bag 100 ML IVPB SCH ×2 (04:03→14:33)
[2018-01-24 04:57] LABS: Hemoglobin 10.9 g/dL (12.9-16.9); Mean Corpuscular HGB Conc 32.1 g/dL (31.6-35.5); Mean Corpuscular Hemoglobin 29.1 pg (28.0-33.3); Mean Corpuscular Volume 90.9 fL (83.0-100.0); Mean Platelet Volume 9.6 fL (9.4-12.4); Platelet Count 321 K/mcL (140-400); Red Blood Count 3.74 M/mcL (4.19-5.50); Red Cell Distribution Width 14.1 % (11.5-14.5)
[2018-01-24] MEDS: Budesonide/Formoterol 160/4.5 MDI IH SCH ×2 (07:31→20:07)
[2018-01-24] MEDS: Pantoprazole 40 MG VIAL IVP SCH (08:55)
--- NOTE | 2018-01-24 09:06 | Event Note ---
Date of Encounter: 01/24/18 Time of Encounter: 09:04 - Cardiology Event Note New onset a.fib. Telemetry reviewed with average HR previous 12 hours noted to be 79, mostly SR. Frequent PVCS and PACs. With a.fib and [id number] score of 4 recommend anticoagulation. NOt currently on, awaiting GI work up today. Patient is aware of increased risk of CVA/embolic event. If/when ok with GI would recommend starting anticoagulation. OK for NOAC or coumadin. Cardiology will sign off and will follow in outpatient setting. Follow up set.
[2018-01-24] MEDS: 0.9 % Sodium Chloride 1,000 ML IVC SCH ×2 (10:00→23:20)
[2018-01-24] MEDS: Saline Nasal Spray 44 ML BOTTLE NS SCH ×4 (10:01→21:10)
[2018-01-24] MEDS ORDERED: Lidocaine -MPF 2% 2 ML VIAL ONE (11:43)
[2018-01-24] MEDS ORDERED: Propofol 500 MG/50 ML INFUS..BTL ONE (11:43)
--- NOTE | 2018-01-24 12:30 | Anesthesia Evaluation PreOp ---
Date of Encounter: 01/24/18 Time of Encounter: 12:30 - Past History Planned Operation: Double Endo Cardiac History: HTN, Hyperlipidemia, Cardiac Surgery (AVR 2006 off blood thinners) Pulmonary History: Asthma, COPD, Other (Recently admitted for pneumonia..on abtx ) LEASE BROKER History: Other (Etoh related neuropathy) Other Medical History: GERD (Anemia) Anesthesia History: No Prior Anesthetic Complications Alcohol Use: none Drug use: none Medications and Allergies Albuterol Sulfate [Ventolin Hfa] 2 puff IH Q4H PRN 06/14/17 [History] Ascorbic Acid [Vitamin C] 1,000 mg PO DAILY 06/14/17 [History] Budesonide/Formoterol 160/4.5 [Symbicort 160/4.5] 2 puff IH BIDR 06/14/17 [ History] Calcium Carbonate [Calcium] 600 mg PO DAILY 06/14/17 [History] Cyanocobalamin (Vitamin B-12) [Vitamin B-12] 1,000 mcg SL DAILY 06/14/17 [ History] Finasteride [Proscar] 5 mg PO DAILY 06/14/17 [History] Garlic [Odor Free Garlic] 100 mg PO DAILY 06/14/17 [History] Irbesartan [Avapro] 300 mg PO DAILY 06/14/17 [History] Multivitamin [One Daily Multivitamin] 1 each PO DAILY 06/14/17 [History] Pantoprazole Sodium 40 mg PO DAILY 06/14/17 [History] Sertraline [Zoloft] 100 mg PO DAILY 06/14/17 [History] Tamsulosin [Flomax] 0.8 mg PO DAILY 06/14/17 [History] Bethanechol [Urecholine] 12.5 mg PO TID tablet 01/15/18 [Rx] Docusate [Colace] 100 mg PO BID capsule 01/15/18 [Rx] Polyethylene Glycol 3350 [MiraLAX] 17 gm PO DAILY powd.pack 01/15/18 [Rx] Saline Nasal [place] [Supreme Nasal [place]] 2 spray NS QID bottle 01/15/18 [Rx] Acetaminophen [Tylenol] 650 mg PO Q6HR 01/18/18 [History] Aspirin Enteric Coated [Aspirin EC] 325 mg PO DAILY 01/18/18 [History] 3 Allergy/AdvReac Type Severity Reaction Status Date / Time No Known Allergies Allergy Verified 01/18/18 10:56 - Meds/Allergy Pre-op Review Medications Reviewed: Yes Allergies Reviewed: Yes Beta Blockers on Current Med List: Yes (Given Metoprolol today) Anesthesia Results - Labs 01/24/18 02:54 01/23/18 03:51 - Imaging EKG: report reviewed (AFib) Additional studies: ECHO EF 60% Anesthesia Exam Vital Signs/O2 Sat/Glucose, Most Current Temp Pulse Resp BP Pulse Ox 01/24/18 11:14 16 97 01/24/18 11:06 97.9 F 68 19 154/90 97 Height: 6'1 Weight: 194 lbs NPO (# of Hours): MN Pain Scale: 0 - HEENT Pupil (Motor): Pupils equal, EOMI Mallampati: II Teeth: Edentulous Oral Opening: Greater than 3 - LEASE BROKER LOC: Oriented LEASE BROKER Motor: Normal RUE, Normal LUE, Normal RLE, Normal LLE, Normal Face LEASE BROKER Sensory: Normal: RUE, LUE, RLE, LLE, Face - Cardiac Rhythm: Regular Murmur: Systolic JVD: No Carotid Bruit: No - Pulmonary Breath Sounds: bilateral Clear Respiratory Effort: Symmetrical Anesthesia Assess/Plan ASA Score: 3 (CAD HTN AFib) Modified [place] Scale for Level of Consciousness: Cooperative, oriented, and tranquil Anesthetic Plan: MAC Monitoring Plan: Standard Monitors Recovery Plan: Other (Discussed MAC, agrees to proceed)
[2018-01-24] MEDS ORDERED: 0.9 % Sodium Chloride 500 ML IVC SCH (12:45)
[2018-01-24] MEDS ORDERED: Simethicone 40 MG/0.6 ML MLS IR ONE (13:28)
[2018-01-24] MEDS ORDERED: Tetracaine/Benzocaine/Butamben 200MG/SPRAY (100SPY/BOT) MM ONE (13:28)
[2018-01-24] MEDS: Aspirin 81 MG TAB.CHEW PO SCH (14:25)
[2018-01-24] MEDS: Finasteride 5 MG TABLET PO SCH (14:28)
[2018-01-24] MEDS: Ascorbic Acid 500 MG TABLET PO SCH (14:28)
[2018-01-24] MEDS: Multivit/Ca/Min/Fe/FA 1 TAB TABLET PO SCH (14:28)
[2018-01-24] MEDS: Cyanocobalamin (B-12) 1,000 MCG TABLET PO SCH (14:28)
[2018-01-24] MEDS: hydroCHLOROthiazide 25 MG TABLET PO SCH (14:28)
[2018-01-24] MEDS ORDERED: Levofloxacin 750 MG/150 ML 750 MG/150 ML BAG IVPB SCH (16:00)
--- NOTE | 2018-01-24 17:01 | Internal Med Progress Note ---
Date of Encounter: 01/24/18 Time of Encounter: 08:45 - Assessment and plan (1) Anemia Current Visit: Yes Status: Chronic Assessment and plan: baseline Hgb appears to be between 14 and 15. Hgb dropped to 9.8 on 01/14/18. Suspect component of postoperative blood loss with recent knee surgery. Occult stool positive. 01/24/18 C-scope with diverticulosis and nonbleeding internal hemorrhoids. EGD showed esophagitis with no bleeding, hiatal hernia and gastritis. Hgb stable in the tens. Continue IV PPI, Carafate. Qualifiers: Anemia type: other cause Other causes of anemia: acute posthemorrhagic Qualified Code(s): D62 - Acute posthemorrhagic anemia (2) Status post total knee replacement, left Current Visit: Yes Status: Acute Assessment and plan: S/P total knee 12/31/17. SNF at discharge (3) GERD (gastroesophageal reflux disease) Current Visit: Yes Status: Chronic Assessment and plan: Chronic. Continue PPI. Qualifiers: Esophagitis presence: esophagitis presence not specified Qualified Code(s) : K21.9 - Gastro-esophageal reflux disease without esophagitis (4) HCAP (healthcare-associated pneumonia) Current Visit: Yes Status: Acute Assessment and plan: Symptomatic with SOB and cough. She treated with IV vancomycin, Zosyn, Levaquin. Clinically improving, de-escalate ATB to Levaquin only. (5) COPD (chronic obstructive pulmonary disease) Current Visit: Yes Status: Chronic Assessment and plan: Chronic. Plan as above. Qualifiers: COPD type: unspecified COPD Qualified Code(s): J44.9 - Chronic obstructive pulmonary disease, unspecified (6) HTN (hypertension) Current Visit: Yes Status: Chronic Assessment and plan: Chronic. Continue home medications. Well controlled. Qualifiers: Hypertension type: essential hypertension Qualified Code(s): I10 - Essential (primary) hypertension (7) Generalized weakness Current Visit: Yes Status: Acute Assessment and plan: PT/OT recommend SNF after discharge. ER SETTER C[employer] ROLLING MACHINE started process for pt to go to [facility] after he is medically stable. Monitor H and H overnight after positive stool occult blood. (8) Elevated d-dimer Current Visit: Yes Status: Resolved Assessment and plan: Elevated on admission. Bilateral lower extremity Dopplers negative for DVT, chest CTA negative for PE. (9) Acute respiratory failure Current Visit: Yes Status: Acute Assessment and plan: Continue to 2 L via nasal canula, titrate as needed to maintain sats greater than 92%. Qualifiers: Respiratory failure complication: unspecified whether with hypoxia or hypercapnia Qualified Code(s): J96.00 - Acute respiratory failure, unspecified whether with hypoxia or hypercapnia (10) DVT prophylaxis Current Visit: Yes Status: Acute Assessment and plan: SCD - Time Spent With Patient Total time spent is greater than 50% in coordination of care (as documented) at patient's floor/unit and/or counseling patient: - Subjective Interval history: Seen and bedside; sitting up in bed. Says he slept better last night. Still having palpitations. Complains of a fire burning sensation in the stomach. Denies chest pain, no shortness of breath. No active bleeding. - Constitutional Vitals: Temp Pulse Resp BP Pulse Ox 97.8 F 63 20 161/86 96 01/24/18 14:22 01/24/18 15:30 01/24/18 16:21 01/24/18 15:30 01/24/18 16:21 General appearance: Present: cooperative, A&O X 3, pleasant, no acute distress, answers questions appropriately Internal Medicine: Result - Labs CBC & Chem 7: 01/24/18 02:54 01/23/18 03:51 Labs: Short CBC 01/24/18 Range/Units 02:54 WBC 6.2 (4.3-11.1) K/mcL Hgb 10.9 L (12.9-16.9) g/dL Hct 34.0 L (37.5-50.1) % Plt Count 321 (140-400) K/mcL - ABG Interpretation ABG results: PT/INR, D-dimer PT 15.6 Seconds (9.4-12.1) H 01/19/18 03:10 D-Dimer 5013 ng/mLFEU (0-500) H 01/18/18 11:24 - VTE Documentation of Mechanical Device: Intermittent pneumatic compression device Consult Discharge Plan - Plan Referrals: Sb Mckinney MD [Primary Care Provider] -
[2018-01-24] MEDS: Sucralfate 1 GM TABLET PO SCH (21:09)
[2018-01-24] MEDS: Ondansetron 4 MG/2 ML VIAL IVP PRN (21:56)
[2018-01-25] MEDS: Ipratropium/Albuterol Neb 3 ML IH SCH ×3 (03:26→11:06)
[2018-01-25 07:06] LABS: Hematocrit 34.3 % (37.5-50.1); Mean Corpuscular HGB Conc 32.1 g/dL (31.6-35.5); Mean Corpuscular Hemoglobin 29.1 pg (28.0-33.3); Mean Corpuscular Volume 90.7 fL (83.0-100.0); Mean Platelet Volume 9.4 fL (9.4-12.4); Platelet Count 271 K/mcL (140-400); Red Blood Count 3.78 M/mcL (4.19-5.50)
[2018-01-25] MEDS: Budesonide/Formoterol 160/4.5 MDI IH SCH (07:34)
[2018-01-25] MEDS: Saline Nasal Spray 44 ML BOTTLE NS SCH ×2 (09:00→12:15)
[2018-01-25] MEDS: Cyanocobalamin (B-12) 1,000 MCG TABLET PO SCH (10:09)
[2018-01-25] MEDS: *HR* HYDROcodone/Acet 5/325 mg TABLET PO PRN (10:09)
[2018-01-25] MEDS: hydroCHLOROthiazide 25 MG TABLET PO SCH (10:10)
[2018-01-25] MEDS: Finasteride 5 MG TABLET PO SCH (10:10)
[2018-01-25] MEDS: Aspirin 81 MG TAB.CHEW PO SCH (10:10)
[2018-01-25] MEDS: Multivit/Ca/Min/Fe/FA 1 TAB TABLET PO SCH (10:11)
[2018-01-25] MEDS: Pantoprazole 40 MG VIAL IVP SCH (10:11)
[2018-01-25] MEDS: Sucralfate 1 GM TABLET PO SCH ×2 (10:12→12:14)
[2018-01-25] MEDS: Ascorbic Acid 500 MG TABLET PO SCH (10:12)
[2018-01-25 10:45] VITALS: BP 150/58
--- NOTE | 2018-01-25 12:59 | Discharge Summary ---
- NOTES TO OUTPATIENT PROVIDER Notes to Outpatient Provider: Recommend follow-up within 7-10 days after discharge from the [place] Orders not resulted at time of discharge: Pending orders 01/26/18 04:00 Complete Blood Count w/o Diff [HEME] AM 0400 01/27/18 04:00 Complete Blood Count w/o Diff [HEME] AM 0400 01/28/18 04:00 Complete Blood Count w/o Diff [HEME] AM 0400 Date of Encounter: 01/25/18 Time of Encounter: 12:57 - Discharge Diagnosis (1) Anemia Priority: Primary Status: Chronic Comments: baseline Hgb appears to be between 14 and 15. Hgb dropped to 9.8 on 01/14/18. Suspect component of postoperative blood loss with recent knee surgery. Occult stool positive. 01/24/18 C-scope with diverticulosis and nonbleeding internal hemorrhoids. EGD showed esophagitis with no bleeding, hiatal hernia and gastritis. Hgb 11 at discharge. Continue PPI, Carafate. H&H can be monitored at SNF. Qualifiers: Anemia type: other cause Other causes of anemia: acute posthemorrhagic Qualified Code(s): D62 - Acute posthemorrhagic anemia (2) Atrial fibrillation with RVR Priority: Primary Status: Acute Comments: A.fib RVR during current, no previous history. [id number] score 3 (age, HTN). 2017 with LVEF 60%, mild diastolic dysfunction, bioprosthetic AV with normal function by doppler, mild TR, borderline PH, no segmental wall motion abnormalities. Rate controlled with BB. Initially not on anticoagulation as stool occult positive. EGD/C scope completed this admission as noted above. Discussed anticoagulation with Dr. Cui on day of discharge and okay to initiate Xarelto from a GI perspective. Also discussed anticoagulation with patient; educated on risk/benefits of anticoagulation (abnormal bleeding/risk of stroke). Patient verbalized understanding and would like to proceed with anticoagulation. Start Xarelto. H&H will need to be closely monitored at SNF (3) Status post total knee replacement, left Priority: Primary Status: Acute Comments: S/P total knee 12/31/17. SNF at discharge (4) GERD (gastroesophageal reflux disease) Priority: Secondary Status: Chronic Comments: Chronic. Continue PPI. Qualifiers: Esophagitis presence: with esophagitis Qualified Code(s): K21.0 - Gastro- esophageal reflux disease with esophagitis (5) HCAP (healthcare-associated pneumonia) Priority: Primary Status: Acute Comments: symptomatic with SOB and cough. Chest CTA concerning for RLL pneumonia. Initially treated with IV vancomycin, Zosyn, Levaquin. ATB D escalated to Levaquin only as he clinically improved. Continue Levaquin for a total course of 7 doses. (6) COPD (chronic obstructive pulmonary disease) Priority: Primary Status: Chronic Comments: Chronic, plan as noted above. Qualifiers: COPD type: unspecified COPD Qualified Code(s): J44.9 - Chronic obstructive pulmonary disease, unspecified (7) HTN (hypertension) Priority: Secondary Status: Chronic Comments: per hx. BP controlled. Cont home BP medication Qualifiers: Hypertension type: essential hypertension Qualified Code(s): I10 - Essential (primary) hypertension (8) Elevated d-dimer Priority: Primary Status: Resolved Comments: Elevated on admission. Bilateral lower extremity Dopplers negative for DVT, chest CTA negative for PE. (9) Acute respiratory failure Priority: Primary Status: Acute Comments: Does not wear oxygen at home and now requiring supplemental O2 to maintain adequate saturation. Secondary to underlying pneumonia. Continue treating underlying causes. Oxygen can be weaned at SNF. Qualifiers: Respiratory failure complication: unspecified whether with hypoxia or hypercapnia Qualified Code(s): J96.00 - Acute respiratory failure, unspecified whether with hypoxia or hypercapnia (10) CAD (coronary artery disease) Priority: Secondary Status: Acute Comments: hx remote CABG. asymptomatic, denied chest pain. Change for dose ASA to 81 mg ASA with addition of Xarelto to decrease bleeding risk. Continue BB, ASA, Xarelto Qualifiers: Coronary Disease-Associated Artery/Lesion type: squaxin artery [place] vs. transplanted heart: squaxin heart Associated angina: without angina Qualified Code(s): I25.10 - Atherosclerotic heart disease of squaxin coronary artery without angina pectoris (11) S/P AVR (aortic valve replacement) Priority: Secondary Status: Acute Comments: history of rheumatic heart disease. S/p bioprosthetic AV replacement. TTE 2017 with normal function per doppler. Cont ASA, Xarelto Hospital course: See assessment and plan for Hospital course Discharge discussed with: patient (Seen and examined at bedside. Sitting up in chair eating lunch, says he feels well would like to be discharged to SNF for possible. Discussed with patient at length regarding anticoagulation and he is aware of risk of bleeding with use of anticoagulation and also aware of risk of stroke without the use of anticoagulation. He verbalizes understanding like to proceed with anticoagulation. Discussed with Dr. Cui and get to proceed with anticoagulation from a GI standpoint. We will decrease ASA to 81 mg. Denies chest pain, no shortness of breath. No bleeding.) - Time Spent with Patient Total time spent providing and/or coordinating discharge services: - Discharge Medications Prescriptions: levoFLOXacin [Levaquin] 750 mg PO Q48H #6 tablet Rivaroxaban [Xarelto] 20 mg PO QPM #30 tablet Sucralfate [Carafate] 1 gm PO QIDAC #30 tablet Home Medications: Albuterol Sulfate [Ventolin Hfa] 2 puff IH Q4H PRN 06/14/17 [History] Ascorbic Acid [Vitamin C] 1,000 mg PO DAILY 06/14/17 [History] Budesonide/Formoterol 160/4.5 [Symbicort 160/4.5] 2 puff IH BIDR 06/14/17 [ History] Calcium Carbonate [Calcium] 600 mg PO DAILY 06/14/17 [History] Cyanocobalamin (Vitamin B-12) [Vitamin B-12] 1,000 mcg SL DAILY 06/14/17 [ History] Finasteride [Proscar] 5 mg PO DAILY 06/14/17 [History] Garlic [Odor Free Garlic] 100 mg PO DAILY 06/14/17 [History] Irbesartan [Avapro] 300 mg PO DAILY 06/14/17 [History] Multivitamin [One Daily Multivitamin] 1 each PO DAILY 06/14/17 [History] Pantoprazole Sodium 40 mg PO DAILY 06/14/17 [History] Sertraline [Zoloft] 100 mg PO DAILY 06/14/17 [History] Tamsulosin [Flomax] 0.8 mg PO DAILY 06/14/17 [History] Bethanechol [Urecholine] 12.5 mg PO TID tablet 01/15/18 [Rx] Docusate [Colace] 100 mg PO BID capsule 01/15/18 [Rx] Polyethylene Glycol 3350 [MiraLAX] 17 gm PO DAILY powd.pack 01/15/18 [Rx] Saline Nasal [place] [Brown Nasal [place]] 2 spray NS QID bottle 01/15/18 [Rx] Acetaminophen [Tylenol] 650 mg PO Q6HR 01/18/18 [History] Aspirin 81 mg PO DAILY tab.chew 01/25/18 [Rx] Metoprolol [Lopressor] 12.5 mg PO BID tablet 01/25/18 [Rx] Rivaroxaban [Xarelto] 20 mg PO QPM #30 tablet 01/25/18 [Rx] Sucralfate [Carafate] 1 gm PO QIDAC #30 tablet 01/25/18 [Rx] levoFLOXacin [Levaquin] 750 mg PO Q48H #6 tablet 01/25/18 [Rx] Allergies/Adverse Reactions: 3 Allergy/AdvReac Type Severity Reaction Status Date / Time No Known Allergies Allergy Verified 01/18/18 10:56 Date of admission: 01/18/18 18:40 Primary care physician: Sb Mckinney MD Consults: 01/22/18 12:22 Consult to Cardiology [CONS] Routine Comment: Consulting Provider: Cardiology [place] Reason for Consult: new a-fib. Occult stool positive Call Completed: Yes Consult to Gastroenterology [CONS] Routine Consulting Provider: Gastroenterology [place] Reason for Consult: Occult stool positive. New a-fib Call Completed: Yes Discharging clinician: Katheryn Gage Anticipated date of discharge: 01/25/18 - Constitutional Vitals: Temp Pulse Resp BP Pulse Ox 98.5 F 75 16 150/58 97 01/25/18 10:44 01/25/18 10:44 01/25/18 10:44 01/25/18 10:44 01/25/18 10:44 General appearance: Present: cooperative, A&O X 3, pleasant, no acute distress, answers questions appropriately - Head Head exam: Present: atraumatic, normocephalic - Eye Eye exam: Present: PERRL, conjuntiva pink, sclera anicteric Pupils: Present: PERRL - Neck Neck exam general surgery: Present: supple, trachea midline. Absent: lymphadenopathy - Respiratory Respiratory exam: Present: CTAB. Absent: accessory muscle use, rales, rhonchi, wheezes - Cardiovascular Cardiovascular exam: Present: irregular rhythm, +S1, +S2. Absent: diastolic murmur, gallop, rubs, systolic murmur - GI/Abdominal GI/Abdominal exam: Present: normal bowel sounds, soft, no peritoneal signs. Absent: distended, tenderness - Extremities Exam Extremities exam: Present: warm, radial pulses palpable and symmetrical. Absent : calf tenderness, cyanotic, pedal edema - Neurological Exam Neurological exam: Present: CN II-XII intact, oriented X3, no focal deficits. Absent: pronater drift, facial droop, speech deficit - Skin Skin exam: Present: dry, intact - Patient Status Disposition: Transfer SNF Condition: Good Functional capacity at discharge: uses cane/walker Overall status at discharge: patient is progressing back to baseline - Discharge Instructions Follow Up With: Sb Mckinney MD [Primary Care Provider] - - Diet and Activity Activity: as per physical therapy Diet: low fat, low cholesterol - VTE Documentation of Mechanical Device: Intermittent pneumatic compression device
--- NOTE | 2018-01-25 14:12 | Physician Discharge Referral ---
ExtendedCare Referral Info Transfer To: SNF Provider in Charge: Katheyrn Harrison CNP Provider in Charge after Transfer: PCP Institutional Level of Care: Skilled - Diagnosis (1) Anemia Status: Chronic (2) Atrial fibrillation with RVR Status: Acute (3) Status post total knee replacement, left Status: Acute (4) GERD (gastroesophageal reflux disease) Status: Chronic (5) HCAP (healthcare-associated pneumonia) Status: Acute (6) COPD (chronic obstructive pulmonary disease) Status: Chronic (7) HTN (hypertension) Status: Chronic (8) Elevated d-dimer Status: Resolved (9) Acute respiratory failure Status: Acute (10) CAD (coronary artery disease) Status: Acute (11) S/P AVR (aortic valve replacement) Status: Acute - Transfer Medications Prescriptions: levoFLOXacin [Levaquin] 750 mg PO Q48H #6 tablet Rivaroxaban [Xarelto] 20 mg PO QPM #30 tablet Sucralfate [Carafate] 1 gm PO QIDAC #30 tablet Home Medications: Albuterol Sulfate [Ventolin Hfa] 2 puff IH Q4H PRN 06/14/17 [History] Ascorbic Acid [Vitamin C] 1,000 mg PO DAILY 06/14/17 [History] Budesonide/Formoterol 160/4.5 [Symbicort 160/4.5] 2 puff IH BIDR 06/14/17 [ History] Calcium Carbonate [Calcium] 600 mg PO DAILY 06/14/17 [History] Cyanocobalamin (Vitamin B-12) [Vitamin B-12] 1,000 mcg SL DAILY 06/14/17 [ History] Finasteride [Proscar] 5 mg PO DAILY 06/14/17 [History] Garlic [Odor Free Garlic] 100 mg PO DAILY 06/14/17 [History] Irbesartan [Avapro] 300 mg PO DAILY 06/14/17 [History] Multivitamin [One Daily Multivitamin] 1 each PO DAILY 06/14/17 [History] Pantoprazole Sodium 40 mg PO DAILY 06/14/17 [History] Sertraline [Zoloft] 100 mg PO DAILY 06/14/17 [History] Tamsulosin [Flomax] 0.8 mg PO DAILY 06/14/17 [History] Bethanechol [Urecholine] 12.5 mg PO TID tablet 01/15/18 [Rx] Docusate [Colace] 100 mg PO BID capsule 01/15/18 [Rx] Polyethylene Glycol 3350 [MiraLAX] 17 gm PO DAILY powd.pack 01/15/18 [Rx] Saline Nasal [place] [[place] Nasal [place]] 2 spray NS QID bottle 01/15/18 [Rx] Acetaminophen [Tylenol] 650 mg PO Q6HR 01/18/18 [History] Aspirin 81 mg PO DAILY tab.chew 01/25/18 [Rx] Metoprolol [Lopressor] 12.5 mg PO BID tablet 01/25/18 [Rx] Rivaroxaban [Xarelto] 20 mg PO QPM #30 tablet 01/25/18 [Rx] Sucralfate [Carafate] 1 gm PO QIDAC #30 tablet 01/25/18 [Rx] levoFLOXacin [Levaquin] 750 mg PO Q48H #6 tablet 01/25/18 [Rx] Allergies/Adverse Reactions: 3 Allergy/AdvReac Type Severity Reaction Status Date / Time No Known Allergies Allergy Verified 01/18/18 10:56 - Respiratory Orders Oxygen / L per min (2) Smoking Cessation: Smoking cessation has been advised. For more information, call the [place] Tobacco Quit Line at 5-465-GYLU-NOW. - Lab Orders Lab Orders: CBC (Recommend weekly CBC to monitor H&H while on ASA and Xarelto) - Advance Directives Code Status: DNR-Arrest/Don't Intubate - Mobility Orders Ambulate - Rehabiliation Orders Rehab Potential: Good Rehab Orders: Evaluation for Physical Therapy, Evaluation for Occupational Therapy - Diet Orders No Added Salt (ROSETTA) CERTIFICATION: I certify that the transfer of the above named patient to an Extended Care Facility is necessary for the continuing treatment of the diagnosis listed. The above information is true and accurate reflection of patient's current condition. Confidential - Redisclosure prohibited without a patient's written consent.
== END 2018-01-25 16:14 | DRG 193 ==
LOC: EMEROO 10:47 → 3BNU 10:47
PROVIDERS: ADMIT Internal Medicine; ATTEND Registered Nurse

== ENCOUNTER 2021-01-08 12:27 | Inpatient (IN) ==
[2021-01-08] MEDS ORDERED: 0.9 % Sodium Chloride 1,000 ML IV ONE (12:47)
[2021-01-08] MEDS ORDERED: Famotidine 20 MG/2 ML VIAL IVP ONE (12:47)
[2021-01-08] MEDS ORDERED: Ondansetron 4 MG/2 ML VIAL IVP ONE (12:48)
[2021-01-08 14:37] LABS: Hemoglobin 11.2 g/dL (12.9-16.9); Lymphocytes # 0.7 K/mcL (0.6-4.6); Mean Corpuscular Hemoglobin 28.1 pg (28.0-33.3); Mean Corpuscular Volume 87.9 fL (83.0-100.0); Mean Platelet Volume 10.8 fL (9.4-12.4); Platelet Count 179 K/mcL (140-400); Red Blood Count 3.98 M/mcL (4.19-5.50); Red Cell Distribution Width 13.6 % (11.5-14.5); White Blood Count 4.4 K/mcL (4.3-11.1)
[2021-01-08 14:58] LABS: Alanine Aminotransferase 11 Units/L (7-52); Albumin 3.2 g/dL (3.5-5.7); Albumin/Globulin Ratio 1.3 (1.1-2.2); Alkaline Phosphatase 47 Units/L (34-104); Aspartate Amino Transferase 21 Units/L (13-39); BUN/Creatinine Ratio 13 (6-26); Bilirubin,Total 0.5 mg/dL (0.3-1.0); Blood Urea Nitrogen 17 mg/dL (8-23); Calcium 7.6 mg/dL (8.6-10.3); Carbon Dioxide 20 mEq/L (23-29); Chloride 110 mEq/L (98-107); Globulin 2.4 g/dL (2.4-3.5); Glucose 96 mg/dL (70-105); Lipase 9 Units/L (11-82); Osmolality,Calculated 289 (280-300); Sodium 139 mEq/L (136-145); Total Protein 5.6 g/dL (6.4-8.9); eGFR For African Americans > 60 (> 60); eGFR For Non-African Americans 53 (> 60)
[2021-01-08 15:12] LABS: Monocytes # 0.7 K/mcL (0.0-1.3); Platelet Estimate Normal (Normal); Reactive Lymphocytes Present (Not Present)
[2021-01-08 16:12] LABS: Bilirubin,Urine Negative (Negative); Blood,Urine Negative (Negative); Clarity,Urine Clear (Clear); Color,Urine Yellow (Yellow); Glucose,Urine (UA) Normal (Normal); Hyaline Casts,Urine Many per lpf (None Seen); Ketones,Urine Trace mg/dL (Negative); Leukocyte Esterase,Urine Negative (Negative); Mucus,Urine Few per lpf (None-Few); Nitrite,Urine Negative (Negative); Protein,Urine 50 mg/dL (Neg-Trace); RBC,Urine 0-3 per hpf (0-3); Specific Gravity,Urine 1.027 (1.010-1.025); Squamous Epithelial Cell,Urine Few per hpf (None-Few); Urobilinogen,Urine Normal (Normal); WBC,Urine 0-3 per hpf (0-3)
[2021-01-08] MEDS ORDERED: Melatonin 3 MG TABLET PO PRN (16:45)
[2021-01-08] MEDS ORDERED: MetroNIDAZOLE 500 MG/100 ML 500 MG/100 ML BAG IVPB ONE (16:47)
[2021-01-08 17:20] LABS: C-Reactive Protein 43 mg/L (Less than 10)
[2021-01-08] MEDS: Ringers Solution, Lactated 1,000 ML IVC SCH (20:14)
[2021-01-08] MEDS: Budesonide/Formoterol 160/4.5 1 PUFF INH IH SCH (22:47)
[2021-01-08 23:12] LABS: Adenovirus F 40/41 PCR Not detected (Not detect); Astrovirus PCR Not detected (Not detect); C.difficile Toxin A/B Gene PCR Not detected (Not detect); Campylobacter by PCR Not detected (Not detect); Cryptosporidium by PCR Not detected (Not detect); Cyclospora cayetanensis PCR Not detected (Not detect); E. coli O157 by PCR Not detected (Not detect); Entamoeba histolytica PCR Not detected (Not detect); Enteroaggregative E.coli(EAEC) Not detected (Not detect); Enteropathogenic E.coli(EPEC) Not detected (Not detect); Enterotoxigenic E.coli (ETEC) Not detected (Not detect); Giardia lamblia PCR Not detected (Not detect); Norovirus GI/GII PCR Not detected (Not detect); Plesiomonas shigelloides PCR Not detected (Not detect); Rotavirus A PCR Not detected (Not detect); Salmonella PCR Not detected (Not detect); Sapovirus PCR Not detected (Not detect); Shig/EnteroinvasiveE coli EIEC Not detected (Not detect); Shigalike tox-prod E coli STEC Not detected (Not detect); Vibrio PCR Not detected (Not detect); Vibrio cholerae PCR Not detected (Not detect); Yersinia enterocolitica PCR Not detected (Not detect)
[2021-01-08] MEDS: Acetaminophen 325 MG TABLET PO PRN (23:55)
[2021-01-08] MEDS: MetroNIDAZOLE 500 MG/100 ML 500 MG/100 ML BAG IVPB SCH (23:57)
[2021-01-09] MEDS: Budesonide/Formoterol 160/4.5 1 PUFF INH IH SCH ×2 (08:31→20:26)
[2021-01-09] MEDS: Ringers Solution, Lactated 1,000 ML IVC SCH (08:39)
[2021-01-09] MEDS: *HR* Rivaroxaban 10 MG TABLET PO SCH (08:40)
[2021-01-09] MEDS: MetroNIDAZOLE 500 MG/100 ML 500 MG/100 ML BAG IVPB SCH ×3 (08:40→22:50)
[2021-01-09] MEDS: Finasteride 5 MG TABLET PO SCH (08:40)
[2021-01-09 09:00] LABS: Hematocrit 38.2 % (37.5-50.1); Hemoglobin 12.4 g/dL (12.9-16.9); Mean Corpuscular HGB Conc 32.5 g/dL (31.6-35.5); Mean Corpuscular Hemoglobin 28.7 pg (28.0-33.3); Mean Corpuscular Volume 88.4 fL (83.0-100.0); Mean Platelet Volume 10.9 fL (9.4-12.4); Platelet Count 203 K/mcL (140-400); Red Blood Count 4.32 M/mcL (4.19-5.50); Red Cell Distribution Width 13.8 % (11.5-14.5); White Blood Count 4.2 K/mcL (4.3-11.1)
[2021-01-09 09:26] LABS: BUN/Creatinine Ratio 12 (6-26); Blood Urea Nitrogen 14 mg/dL (8-23); Calcium 8.1 mg/dL (8.6-10.3); Carbon Dioxide 22 mEq/L (23-29); Chloride 110 mEq/L (98-107); Glucose 79 mg/dL (70-105); Osmolality,Calculated 289 (280-300); Phosphorous 2.8 mg/dL (2.7-4.5); Potassium 3.3 mEq/L (3.5-5.1); Sodium 140 mEq/L (136-145); eGFR For African Americans > 60 (> 60); eGFR For Non-African Americans > 60 (> 60)
[2021-01-09] MEDS: Acetaminophen 325 MG TABLET PO PRN (22:49)
[2021-01-09] MEDS: Ondansetron 4 MG/2 ML VIAL IVP PRN (22:56)
[2021-01-10 05:07] LABS: BUN/Creatinine Ratio 12 (6-26); Blood Urea Nitrogen 13 mg/dL (8-23); Carbon Dioxide 21 mEq/L (23-29); Chloride 111 mEq/L (98-107); Glucose 92 mg/dL (70-105); Osmolality,Calculated 290 (280-300); Potassium 3.6 mEq/L (3.5-5.1); Sodium 140 mEq/L (136-145); eGFR For African Americans > 60 (> 60); eGFR For Non-African Americans > 60 (> 60)
[2021-01-10] MEDS: Acetaminophen 325 MG TABLET PO PRN ×3 (05:18→21:07)
[2021-01-10] MEDS: Ondansetron 4 MG/2 ML VIAL IVP PRN ×3 (05:18→21:07)
[2021-01-10] MEDS: Budesonide/Formoterol 160/4.5 1 PUFF INH IH SCH ×2 (07:53→20:30)
[2021-01-10] MEDS: MetroNIDAZOLE 500 MG/100 ML 500 MG/100 ML BAG IVPB SCH ×3 (08:04→23:07)
[2021-01-10] MEDS: *HR* Rivaroxaban 10 MG TABLET PO SCH (08:05)
[2021-01-10] MEDS: Finasteride 5 MG TABLET PO SCH (08:05)
[2021-01-10] MEDS ORDERED: Ringers Solution, Lactated 1,000 ML IVC SCH (09:15)
[2021-01-10] MEDS: Ringers Solution, Lactated 1,000 ML IVC SCH ×2 (12:03→23:08)
[2021-01-11 02:05] LABS: BUN/Creatinine Ratio 12 (6-26); Blood Urea Nitrogen 13 mg/dL (8-23); Calcium 7.9 mg/dL (8.6-10.3); Carbon Dioxide 22 mEq/L (23-29); Chloride 111 mEq/L (98-107); Glucose 94 mg/dL (70-105); Osmolality,Calculated 290 (280-300); Potassium 3.8 mEq/L (3.5-5.1); Sodium 140 mEq/L (136-145); eGFR For African Americans > 60 (> 60); eGFR For Non-African Americans > 60 (> 60)
[2021-01-11] MEDS: Ondansetron 4 MG/2 ML VIAL IVP PRN ×2 (05:13→16:32)
[2021-01-11] MEDS: Acetaminophen 325 MG TABLET PO PRN ×2 (05:14→16:31)
[2021-01-11 08:07] LABS: Basophils % 0.5 %; Eosinophils # 0.3 K/mcL (0.0-0.6); Eosinophils % 5.5 %; Hematocrit 39.5 % (37.5-50.1); Hemoglobin 12.9 g/dL (12.9-16.9); Immature Granulocytes % 0.5 % (0-4); Lymphocytes # 0.9 K/mcL (0.6-4.6); Lymphocytes % 15.2 %; Mean Corpuscular HGB Conc 32.7 g/dL (31.6-35.5); Mean Corpuscular Hemoglobin 28.9 pg (28.0-33.3); Mean Corpuscular Volume 88.4 fL (83.0-100.0); Mean Platelet Volume 10.9 fL (9.4-12.4); Monocytes # 0.9 K/mcL (0.0-1.3); Monocytes % 14.4 %; Neutrophils # 3.9 K/mcL (1.6-8.9); Platelet Count 250 K/mcL (140-400); Red Blood Count 4.47 M/mcL (4.19-5.50); Red Cell Distribution Width 13.8 % (11.5-14.5); Segmented Neutrophils % 63.9 %; White Blood Count 6.2 K/mcL (4.3-11.1)
[2021-01-11] MEDS: MetroNIDAZOLE 500 MG/100 ML 500 MG/100 ML BAG IVPB SCH ×2 (08:08→16:28)
[2021-01-11] MEDS: *HR* Rivaroxaban 10 MG TABLET PO SCH (08:09)
[2021-01-11] MEDS: Finasteride 5 MG TABLET PO SCH (08:09)
[2021-01-11] MEDS ORDERED: Isovue-370 500 ML BOTTLE IVP ONE (09:45)
[2021-01-11] MEDS: Budesonide/Formoterol 160/4.5 1 PUFF INH IH SCH ×2 (11:06→21:38)
[2021-01-11] MEDS ORDERED: Isovue-370 500 ML BOTTLE PO ONE (11:47)
[2021-01-11] MEDS ORDERED: Piperacillin/Tazobactam 3.375 GM in 0.9 % Sodium Chloride Mini Bag 100 ML IVPB ONE (16:51)
[2021-01-11] MEDS ORDERED: Ringers Solution, Lactated 1,000 ML IVC SCH (17:00)
[2021-01-12] MEDS: Acetaminophen 325 MG TABLET PO PRN (01:04)
[2021-01-12] MEDS: Piperacillin/Tazobactam 3.375 GM in 0.9 % Sodium Chloride Mini Bag 100 ML IVPB SCH ×3 (01:04→16:35)
[2021-01-12] MEDS: Ondansetron 4 MG/2 ML VIAL IVP PRN (01:04)
[2021-01-12 05:42] LABS: Hematocrit 40.5 % (37.5-50.1); Hemoglobin 13.3 g/dL (12.9-16.9); Mean Corpuscular HGB Conc 32.8 g/dL (31.6-35.5); Mean Corpuscular Hemoglobin 28.2 pg (28.0-33.3); Mean Platelet Volume 10.5 fL (9.4-12.4); Platelet Count 250 K/mcL (140-400); Red Blood Count 4.71 M/mcL (4.19-5.50); Red Cell Distribution Width 13.8 % (11.5-14.5); White Blood Count 6.9 K/mcL (4.3-11.1)
[2021-01-12 06:00] LABS: Albumin 2.9 g/dL (3.5-5.7); BUN/Creatinine Ratio 13 (6-26); Blood Urea Nitrogen 14 mg/dL (8-23); Carbon Dioxide 23 mEq/L (23-29); Chloride 109 mEq/L (98-107); Glucose 90 mg/dL (70-105); Magnesium 1.8 mg/dL (1.6-2.6); Osmolality,Calculated 286 (280-300); Potassium 3.5 mEq/L (3.5-5.1); Sodium 138 mEq/L (136-145); eGFR For African Americans > 60 (> 60); eGFR For Non-African Americans > 60 (> 60)
[2021-01-12] MEDS: Budesonide/Formoterol 160/4.5 1 PUFF INH IH SCH ×2 (07:50→20:05)
[2021-01-12] MEDS: *HR* Rivaroxaban 10 MG TABLET PO SCH (08:28)
[2021-01-12] MEDS: Finasteride 5 MG TABLET PO SCH (08:28)
[2021-01-13] MEDS: Piperacillin/Tazobactam 3.375 GM in 0.9 % Sodium Chloride Mini Bag 100 ML IVPB SCH ×3 (00:05→17:30)
[2021-01-13 06:37] LABS: Basophils % 0.4 %; Eosinophils # 0.6 K/mcL (0.0-0.6); Eosinophils % 7.7 %; Hematocrit 40.9 % (37.5-50.1); Hemoglobin 13.5 g/dL (12.9-16.9); Immature Granulocytes % 0.9 % (0-4); Lymphocytes # 0.9 K/mcL (0.6-4.6); Lymphocytes % 12.1 %; Mean Corpuscular Hemoglobin 28.6 pg (28.0-33.3); Mean Corpuscular Volume 86.7 fL (83.0-100.0); Mean Platelet Volume 10.5 fL (9.4-12.4); Monocytes % 12.7 %; Neutrophils # 5.1 K/mcL (1.6-8.9); Platelet Count 272 K/mcL (140-400); Red Blood Count 4.72 M/mcL (4.19-5.50); Red Cell Distribution Width 13.7 % (11.5-14.5); Segmented Neutrophils % 66.2 %; White Blood Count 7.7 K/mcL (4.3-11.1)
[2021-01-13 07:02] LABS: BUN/Creatinine Ratio 15 (6-26); Blood Urea Nitrogen 17 mg/dL (8-23); Carbon Dioxide 23 mEq/L (23-29); Chloride 107 mEq/L (98-107); Glucose 93 mg/dL (70-105); Magnesium 1.9 mg/dL (1.6-2.6); Osmolality,Calculated 289 (280-300); Phosphorous 3.4 mg/dL (2.7-4.5); Potassium 3.2 mEq/L (3.5-5.1); Sodium 139 mEq/L (136-145); eGFR For African Americans > 60 (> 60); eGFR For Non-African Americans > 60 (> 60)
[2021-01-13] MEDS: Budesonide/Formoterol 160/4.5 1 PUFF INH IH SCH ×2 (07:33→19:55)
[2021-01-13] MEDS: Finasteride 5 MG TABLET PO SCH (08:43)
[2021-01-13] MEDS: *HR* Rivaroxaban 10 MG TABLET PO SCH (08:43)
[2021-01-13] MEDS ORDERED: Lidocaine -MPF 2% 5 ML VIAL SQ ONE (15:23)
[2021-01-13] MEDS ORDERED: *HR* Propofol 200 MG/20 ML VIAL IVP ONE (15:23)
[2021-01-14] MEDS: Piperacillin/Tazobactam 3.375 GM in 0.9 % Sodium Chloride Mini Bag 100 ML IVPB SCH ×2 (00:19→07:43)
[2021-01-14 06:13] LABS: Basophils % 0.5 %; Eosinophils # 0.4 K/mcL (0.0-0.6); Eosinophils % 4.9 %; Hematocrit 41.8 % (37.5-50.1); Hemoglobin 13.5 g/dL (12.9-16.9); Immature Granulocytes % 1.2 % (0-4); Lymphocytes # 1.2 K/mcL (0.6-4.6); Lymphocytes % 15.7 %; Mean Corpuscular HGB Conc 32.3 g/dL (31.6-35.5); Mean Corpuscular Volume 86.5 fL (83.0-100.0); Mean Platelet Volume 10.3 fL (9.4-12.4); Monocytes # 1.1 K/mcL (0.0-1.3); Monocytes % 14.6 %; Neutrophils # 4.9 K/mcL (1.6-8.9); Platelet Count 295 K/mcL (140-400); Red Blood Count 4.83 M/mcL (4.19-5.50); Red Cell Distribution Width 13.8 % (11.5-14.5); Segmented Neutrophils % 63.1 %; White Blood Count 7.7 K/mcL (4.3-11.1)
[2021-01-14 06:54] LABS: BUN/Creatinine Ratio 17 (6-26); Blood Urea Nitrogen 20 mg/dL (8-23); Carbon Dioxide 21 mEq/L (23-29); Chloride 108 mEq/L (98-107); Glucose 95 mg/dL (70-105); Osmolality,Calculated 290 (280-300); Phosphorous 3.1 mg/dL (2.7-4.5); Potassium 3.4 mEq/L (3.5-5.1); Sodium 139 mEq/L (136-145); eGFR For African Americans > 60 (> 60); eGFR For Non-African Americans 60 (> 60)
[2021-01-14] MEDS: Budesonide/Formoterol 160/4.5 1 PUFF INH IH SCH ×2 (08:48→20:04)
[2021-01-14] MEDS: Finasteride 5 MG TABLET PO SCH (08:58)
[2021-01-14] MEDS: *HR* Rivaroxaban 10 MG TABLET PO SCH (08:58)
[2021-01-14] MEDS: Cholestyramine 4 GM POWD.PACK PO SCH ×2 (12:44→16:37)
[2021-01-14] MEDS: Psyllium 1 PACKET POWD.PACK PO SCH ×2 (17:44→20:25)
[2021-01-15 04:07] LABS: Basophils % 0.3 %; Eosinophils # 0.4 K/mcL (0.0-0.6); Eosinophils % 4.2 %; Hematocrit 40.4 % (37.5-50.1); Hemoglobin 13.2 g/dL (12.9-16.9); Immature Granulocytes % 1.1 % (0-4); Lymphocytes # 1.4 K/mcL (0.6-4.6); Lymphocytes % 14.4 %; Mean Corpuscular HGB Conc 32.7 g/dL (31.6-35.5); Mean Corpuscular Hemoglobin 28.5 pg (28.0-33.3); Mean Corpuscular Volume 87.3 fL (83.0-100.0); Mean Platelet Volume 10.4 fL (9.4-12.4); Monocytes # 1.2 K/mcL (0.0-1.3); Monocytes % 11.8 %; Neutrophils # 6.6 K/mcL (1.6-8.9); Platelet Count 312 K/mcL (140-400); Red Blood Count 4.63 M/mcL (4.19-5.50); Red Cell Distribution Width 13.8 % (11.5-14.5); Segmented Neutrophils % 68.2 %; White Blood Count 9.7 K/mcL (4.3-11.1)
[2021-01-15 04:19] LABS: BUN/Creatinine Ratio 18 (6-26); Blood Urea Nitrogen 19 mg/dL (8-23); Calcium 7.6 mg/dL (8.6-10.3); Carbon Dioxide 23 mEq/L (23-29); Chloride 106 mEq/L (98-107); Glucose 109 mg/dL (70-105); Osmolality,Calculated 287 (280-300); Phosphorous 2.8 mg/dL (2.7-4.5); Potassium 3.1 mEq/L (3.5-5.1); Sodium 137 mEq/L (136-145); eGFR For African Americans > 60 (> 60); eGFR For Non-African Americans > 60 (> 60)
[2021-01-15] MEDS: Psyllium 1 PACKET POWD.PACK PO SCH ×2 (07:58→10:33)
[2021-01-15] MEDS: Budesonide/Formoterol 160/4.5 1 PUFF INH IH SCH ×2 (07:58→21:18)
[2021-01-15] MEDS: *HR* Rivaroxaban 10 MG TABLET PO SCH (08:02)
[2021-01-15] MEDS: Cholestyramine 4 GM POWD.PACK PO SCH ×3 (08:02→16:50)
[2021-01-15] MEDS: Finasteride 5 MG TABLET PO SCH (08:03)
[2021-01-15] MEDS: predniSONE 20 MG TABLET PO SCH (11:40)
[2021-01-15] MEDS: 0.9 % Sodium Chloride 1,000 ML IVC SCH (14:22)
[2021-01-16] MEDS: 0.9 % Sodium Chloride 1,000 ML IVC SCH ×2 (04:12→17:07)
[2021-01-16 04:57] LABS: Basophils % 0.1 %; Hematocrit 41.5 % (37.5-50.1); Hemoglobin 13.6 g/dL (12.9-16.9); Immature Granulocytes % 1.9 % (0-4); Lymphocytes # 0.7 K/mcL (0.6-4.6); Lymphocytes % 9.3 %; Mean Corpuscular HGB Conc 32.8 g/dL (31.6-35.5); Mean Corpuscular Hemoglobin 28.3 pg (28.0-33.3); Mean Corpuscular Volume 86.3 fL (83.0-100.0); Monocytes # 0.5 K/mcL (0.0-1.3); Monocytes % 6.2 %; Neutrophils # 6.5 K/mcL (1.6-8.9); Platelet Count 320 K/mcL (140-400); Red Blood Count 4.81 M/mcL (4.19-5.50); Red Cell Distribution Width 13.8 % (11.5-14.5); Segmented Neutrophils % 82.5 %; White Blood Count 7.9 K/mcL (4.3-11.1)
[2021-01-16 05:14] LABS: BUN/Creatinine Ratio 22 (6-26); Blood Urea Nitrogen 22 mg/dL (8-23); Calcium 7.5 mg/dL (8.6-10.3); Carbon Dioxide 19 mEq/L (23-29); Chloride 111 mEq/L (98-107); Glucose 143 mg/dL (70-105); Magnesium 2.2 mg/dL (1.6-2.6); Osmolality,Calculated 292 (280-300); Phosphorous 3.8 mg/dL (2.7-4.5); Potassium 3.5 mEq/L (3.5-5.1); Sodium 138 mEq/L (136-145); eGFR For African Americans > 60 (> 60); eGFR For Non-African Americans > 60 (> 60)
[2021-01-16] MEDS: Budesonide/Formoterol 160/4.5 1 PUFF INH IH SCH ×2 (08:01→20:28)
[2021-01-16] MEDS: predniSONE 20 MG TABLET PO SCH (08:36)
[2021-01-16] MEDS: *HR* Rivaroxaban 10 MG TABLET PO SCH (08:36)
[2021-01-16] MEDS: Finasteride 5 MG TABLET PO SCH (08:36)
[2021-01-16] MEDS: Cholestyramine 4 GM POWD.PACK PO SCH ×2 (08:36→11:19)
[2021-01-17 03:01] LABS: Basophils % 0.2 %; Eosinophils % 0.1 %; Hematocrit 37.8 % (37.5-50.1); Hemoglobin 12.3 g/dL (12.9-16.9); Immature Granulocytes % 1.2 % (0-4); Lymphocytes # 1.1 K/mcL (0.6-4.6); Lymphocytes % 13.1 %; Mean Corpuscular HGB Conc 32.5 g/dL (31.6-35.5); Mean Corpuscular Hemoglobin 28.5 pg (28.0-33.3); Mean Corpuscular Volume 87.7 fL (83.0-100.0); Mean Platelet Volume 10.2 fL (9.4-12.4); Monocytes # 0.7 K/mcL (0.0-1.3); Monocytes % 8.2 %; Neutrophils # 6.5 K/mcL (1.6-8.9); Platelet Count 292 K/mcL (140-400); Red Blood Count 4.31 M/mcL (4.19-5.50); Red Cell Distribution Width 13.9 % (11.5-14.5); Segmented Neutrophils % 77.2 %; White Blood Count 8.4 K/mcL (4.3-11.1)
[2021-01-17 03:21] LABS: BUN/Creatinine Ratio 22 (6-26); Blood Urea Nitrogen 25 mg/dL (8-23); Calcium 7.3 mg/dL (8.6-10.3); Carbon Dioxide 20 mEq/L (23-29); Chloride 112 mEq/L (98-107); Glucose 113 mg/dL (70-105); Magnesium 2.1 mg/dL (1.6-2.6); Osmolality,Calculated 291 (280-300); Phosphorous 2.6 mg/dL (2.7-4.5); Potassium 3.1 mEq/L (3.5-5.1); Sodium 138 mEq/L (136-145); eGFR For African Americans > 60 (> 60); eGFR For Non-African Americans > 60 (> 60)
[2021-01-17] MEDS: 0.9 % Sodium Chloride 1,000 ML IVC SCH ×2 (06:42→20:06)
[2021-01-17] MEDS: Budesonide/Formoterol 160/4.5 1 PUFF INH IH SCH ×2 (07:42→20:21)
[2021-01-17] MEDS: Potassium Chloride Elixir 20 MEQ/15 ML UDC PO SCH ×2 (08:48→12:38)
[2021-01-17] MEDS: *HR* Rivaroxaban 10 MG TABLET PO SCH (08:49)
[2021-01-17] MEDS: Finasteride 5 MG TABLET PO SCH (08:49)
[2021-01-17] MEDS: predniSONE 20 MG TABLET PO SCH (08:50)
[2021-01-18 05:28] LABS: Basophils % 0.3 %; Hematocrit 38.4 % (37.5-50.1); Hemoglobin 12.2 g/dL (12.9-16.9); Immature Granulocytes % 2.5 % (0-4); Lymphocytes # 1.2 K/mcL (0.6-4.6); Mean Corpuscular HGB Conc 31.8 g/dL (31.6-35.5); Mean Corpuscular Hemoglobin 27.8 pg (28.0-33.3); Mean Corpuscular Volume 87.5 fL (83.0-100.0); Mean Platelet Volume 10.2 fL (9.4-12.4); Monocytes # 0.6 K/mcL (0.0-1.3); Monocytes % 6.7 %; Neutrophils # 7.1 K/mcL (1.6-8.9); Platelet Count 299 K/mcL (140-400); Red Blood Count 4.39 M/mcL (4.19-5.50); Red Cell Distribution Width 14.2 % (11.5-14.5); Segmented Neutrophils % 77.5 %; White Blood Count 9.2 K/mcL (4.3-11.1)
[2021-01-18 05:35] LABS: BUN/Creatinine Ratio 26 (6-26); Blood Urea Nitrogen 21 mg/dL (8-23); Calcium 7.5 mg/dL (8.6-10.3); Carbon Dioxide 20 mEq/L (23-29); Chloride 114 mEq/L (98-107); Glucose 105 mg/dL (70-105); Magnesium 1.9 mg/dL (1.6-2.6); Osmolality,Calculated 293 (280-300); Phosphorous 2.2 mg/dL (2.7-4.5); Potassium 3.3 mEq/L (3.5-5.1); Sodium 140 mEq/L (136-145); eGFR For African Americans > 60 (> 60); eGFR For Non-African Americans > 60 (> 60)
[2021-01-18] MEDS: Budesonide/Formoterol 160/4.5 1 PUFF INH IH SCH (07:35)
[2021-01-18] MEDS: *HR* Rivaroxaban 10 MG TABLET PO SCH (08:55)
[2021-01-18] MEDS: predniSONE 20 MG TABLET PO SCH (08:56)
[2021-01-18] MEDS: Finasteride 5 MG TABLET PO SCH (08:56)
[2021-01-18 10:37] VITALS: BP 145/74
[2021-01-18 17:09] LABS: Adenovirus Not Detected (Not Detect); Bordetella Pertussis Not Detected (Not Detect); Chlamydophila pneumoniae Not Detected (Not Detect); Coronavirus 229E Not Detected (Not Detect); Coronavirus HKU1 Not Detected (Not Detect); Coronavirus NL63 Not Detected (Not Detect); Coronavirus OC43 Not Detected (Not Detect); Human Metapneumovirus Not Detected (Not Detect); Human Rhinovirus/Enterovirus Not Detected (Not Detect); Influenza A Subtype 2009 H1 Not Detected (Not Detect); Influenza B Not Detected (Not Detect); Mycoplasma pneumoniae Not Detected (Not Detect); Parainfluenza Virus 1 Not Detected (Not Detect); Parainfluenza Virus 2 Not Detected (Not Detect); Parainfluenza Virus 3 Not Detected (Not Detect); Parainfluenza Virus 4 Not Detected (Not Detect); Respiratory Syncytial Virus Not Detected (Not Detect); SARS-CoV-2 Not Detected (Not Detect)
== END 2021-01-18 19:26 | disposition other institution (70) | DRG 385 ==
LOC: EMEROOARM 12:27 → 3ANU 12:27 → SUATTDRO 16:59 → 3ANU 18:54 → SUATTDRO 01-09 10:44
PROVIDERS: ADMIT Internal Medicine; ATTEND Student in an Organized Health Care Education/Training Program
PROC: ENDOCBX (2021-01-13 14:40)
PROC: ENDOEBX (2021-01-13 14:40)